=== PATIENT | female | born 1940 | race Caucasian/White ===

== ENCOUNTER → 2016-09-07 | Outpatient (CLI) | payer MEDICARE, OTHER ==
[~2016-09-07] MED LIST: AMIO200T10; ASP81CT PO; B12 IM; CALC-18 PO; DIGO250T96; DILT180C PO; FURO40TA4 PO; LORA0.5T PO; MIRALAX; MTP100TCR PO; MTP25TSR; OCCUVITE PO; OMG1KC PO; PANT40SU PO; POTA10TA36 PO; PRV20T PO; PRX10T PO; VIT D PO; VIT1TABL57 PO; VIT1TABL93 PO; WARF2.5T10 PO; WARF4TAB; WRF2.5T; WRF2.5T PO; WRF5T; WRF5T PO
--- NOTE | 2016-09-07 17:41 | Diagnostic Imaging Report ---
Bilateral screening mammogram. The current study was also evaluated with a Computer Aided Detection (CAD) system. INDICATION: Screening. No current complaints stated on the questionnaire. COMPARISON: 07/20/15. FINDINGS: The breasts are composed of scattered fibroglandular densities. There are benign-appearing calcifications seen. Allowing for technique and positional differences, no suspicious change is seen. IMPRESSION: No significant change. ACR BI-RADS Category 2: Benign findings. Result letter will be mailed to the patient. Note: At least 10% of breast cancer is not imaged by mammography. Dictated by: Dictated on workstation # [id number]
== END ==
LOC: RAD 13:01
PROVIDERS: ATTEND Nurse Practitioner Family
DX: Z12.31 Encounter for screening mammogram for malignant neoplasm of breast (principal)
CPT/HCPCS: 77067

== ENCOUNTER → 2016-10-09 | Outpatient (CLI) | payer MEDICARE, OTHER ==
--- NOTE | 2016-10-09 13:51 | Diagnostic Imaging Report ---
PROCEDURE: CT head without contrast. TECHNIQUE: Multiple contiguous axial images were obtained through the brain without the use of intravenous contrast. INDICATION: Headache. FINDINGS: There is no intracranial hemorrhage, edema or mass effect. There is mild periventricular and deep white hypodensities compatible with chronic microvascular ischemic changes. No hydrocephalus. No extra-axial fluid collection seen. The calvarium, the paranasal sinuses and orbits appear grossly unremarkable. IMPRESSION: No acute process. Dictated by: Dictated on workstation # [id number]
== END ==
LOC: RAD 13:15
PROVIDERS: ATTEND Family Medicine
DX: R51 Headache (principal)
CPT/HCPCS: 70450

== ENCOUNTER → 2018-03-11 | Outpatient (CLI) | payer MEDICARE, OTHER | LOC: CARD 09:34 | PROVIDERS: ATTEND Internal Medicine Cardiovascular Disease | DX: I10 Essential (primary) hypertension (principal); I48.0 Paroxysmal atrial fibrillation; E78.5 Hyperlipidemia, unspecified; R00.2 Palpitations; I08.3 Combined rheumatic disorders of mitral, aortic and tricuspid valves | CPT/HCPCS: 93306 ==

== ENCOUNTER 2018-04-04 08:38 | Outpatient (CLI) | payer MEDICARE, OTHER ==
[~2018-04-04] VITALS: Ht 160 cm; Wt 63.5 kg
[~2018-04-04 08:38] MED LIST changes: +APIX5TAB PO; +CALC600T12 PO; +CYAN250010 PO; +DILT180T9 PO; +METO-370 PO; +PRAV20TA3 PO
== END 2018-04-04 08:48 | disposition home or self-care (01) ==
LOC: PREOP 08:38
PROVIDERS: ATTEND Surgery
DX: Z01.818 Encounter for other preprocedural examination (principal)

== ENCOUNTER 2018-04-08 07:49 | Day surgery (SDC) | payer MEDICARE, OTHER ==
[~2018-04-08] VITALS: Ht 160 cm; Wt 63.5 kg
--- OUTSIDE RECORDS SUMMARY | 2018-04-08 07:55 | XMS REPORT | CCD ---
Author Author Destiny Tobias Organization Destiny Tobias MD, [facility] Address [address] [place] [address] Phone Care Team Providers Care Driver Starting Gate Name Role Phone PP Unavailable CCM Unavailable Summary Purpose Interface Exchange Insurance Providers Payer name Policy type / Coverage type Covered republican ID Effective Begin Date Effective End Date WPS Medicare Part B Medicare Part B [id number] 2018 Unknown [employer] [place] Medicare Part B 006 - [id number] Unknown Family history Father Diagnosis Age At Onset Stroke Unknown Heart Attack Unknown Colon cancer Unknown Mother Diagnosis Age At Onset Hypertension Unknown Stroke Unknown Social History Social History Element Codes Description Effective Dates Marital status Unknown 11/27/2014 Marital status Unknown [place] 11/27/2014 Number of children Unknown 0 11/27/2014 Employment Unknown Retired 11/27/[address]: 521515858 Never smoker 11/27/[address]: 879703879 Never drinks alcohol 11/27/2014 Allergies, Adverse Reactions, Alerts Substance Reaction Codes Entered Date Inactivated Date Status * NO KNOWN FOOD ALLERGIES Unknown 11/27/2014 No Inactive Date Active * NO KNOWN DRUG ALLERGIES Unknown 05/27/2015 No Inactive Date Active Past Medical History Illness Codes Condition Status Onset Date Resolved Date Chronic atrial fibrillation ICD-9: 427.31 ICD-10: I48.2 Active 11/26/2014 Unknown Essential (primary) hypertension ICD-9: 401.1 ICD-10: I10 Active 10/05/2016 Unknown Low back pain ICD-9: 724.2 ICD-10: M54.5 Active 02/04/2018 Unknown Mixed hyperlipidemia ICD-9: 272.2 ICD-10: E78.2 Active 10/05/2016 Unknown Zoster without complications ICD-9: 053.9 ICD-10: B02.9 Active 09/20/2017 Unknown Mixed hyperlipidemia ICD-9: 272.4 ICD-10: E78.2 Active 11/26/2014 Unknown Gastro-esophageal reflux disease without esophagitis ICD-9: 530.81 ICD-10: K21.9 Active 02/06/2017 Unknown Headache ICD-9: 784.0 ICD-10: R51 Active 10/05/2016 Unknown Other allergic rhinitis ICD-9: 477.8 ICD-10: J30.89 Active 10/05/2016 Unknown Essential (primary) hypertension ICD-9: 401.9 ICD-10: I10 Active 11/26/2014 Unknown Hyperlipidemia Unknown Active 11/27/2014 Unknown Hypertension Unknown Active 11/27/2014 Unknown ATRIAL FIBRILLATION ICD-9: 427.31 Active 11/26/2014 Unknown ESSENTIAL HYPERTENSION ICD-9: 401.9 Active 11/26/2014 Unknown HYPERLIPIDEMIA ICD-9: 272.4 Active 11/26/2014 Unknown Problems Condition Codes Effective Dates Condition Status Chronic atrial fibrillation ICD-9: 427.31 ICD-10: I48.2 11/26/2014 Active Essential (primary) hypertension ICD-9: 401.1 ICD-10: I10 10/05/2016 Active Low back pain ICD-9: 724.2 ICD-10: M54.5 02/04/2018 Active Mixed hyperlipidemia ICD-9: 272.2 ICD-10: E78.2 10/05/2016 Active Zoster without complications ICD-9: 053.9 ICD-10: B02.9 09/20/2017 Active Mixed hyperlipidemia ICD-9: 272.4 ICD-10: E78.2 11/26/2014 Active Gastro-esophageal reflux disease without esophagitis ICD-9: 530.81 ICD-10: K21.9 02/06/2017 Active Headache ICD-9: 784.0 ICD-10: R51 10/05/2016 Active Other allergic rhinitis ICD-9: 477.8 ICD-10: J30.89 10/05/2016 Active Essential (primary) hypertension ICD-9: 401.9 ICD-10: I10 11/26/2014 Active Hyperlipidemia Unknown 11/27/2014 Active Hypertension Unknown 11/27/2014 Active ATRIAL FIBRILLATION ICD-9: 427.31 11/26/2014 Active ESSENTIAL HYPERTENSION ICD-9: 401.9 11/26/2014 Active HYPERLIPIDEMIA ICD-9: 272.4 11/26/2014 Active Medications Medication Codes Instructions Start Date Stop Date Status Fill Instructions acyclovir 400 mg tablet RxNorm: 033404 2 Tablet(s) PO QID 09/2009/29/2017 Inactive pravastatin 20 mg tablet RxNorm: 219740 Tablet(s) TAKE 1 TABLET EVERY DAY 09/14/2017 12/07/2018 Active famotidine 20 mg tablet RxNorm: 172493 1 Tablet(s) PO BID 06/1906/13/2018 Active diltiazem CD 180 mg capsule,extended release 24 hr RxNorm: 398015 Capsule(s) TAKE 1 CAPSULE EVERY DAY 06/19/2017 06/13/2018 Active metoprolol tartrate 50 mg tablet RxNorm: 334869 1 Tablet(s) PO BID 06/19/2017 09/11/2018 Active omeprazole 20 mg capsule,delayed release RxNorm: 915142 1 Capsule(s) PO daily as needed acid reflux not controlled by pepcid 02/06/2017 05/01/2018 Active Eliquis 5 mg tablet RxNorm: 1043756 1 Tablet(s) PO BID 201603/07/2017 Inactive pravastatin 20 mg tablet RxNorm: 539684 TAKE 1 TABLET EVERY DAY 11/30/2016 09/13/2017 Inactive diltiazem CD 180 mg capsule,extended release 24 hr RxNorm: 922498 TAKE 1 CAPSULE EVERY DAY 10/30/2016 06/18/2017 Inactive Kenalog 40 mg/mL suspension for injection RxNorm: 9317593 1 Milliliter(s) Inj 10/05/2016 10/05/2016 Inactive metoprolol tartrate 50 mg tablet RxNorm: 862405 1 Tablet(s) PO BID 10/05/2016 06/18/2017 Inactive metoprolol tartrate 100 mg tablet RxNorm: 107162 1 Tablet(s) PO daily 02/25/2016 10/04/2016 Inactive warfarin 5 mg tablet RxNorm: 854185 1 Tablet(s) PO daily 201507/12/2016 Inactive pravastatin 20 mg tablet RxNorm: 455058 1 Tablet(s) PO daily 11/29/2016 Inactive diltiazem CD 180 mg capsule,extended release 24 hr RxNorm: 769353 1 Capsule(s) PO daily 12/08/2015 10/29/2016 Inactive metronidazole 0.75 % topical cream RxNorm: 199034 apply topically at bedtime to clean skin TOP 12/22/2014 12/21/2014 Inactive metronidazole 0.75 % topical cream RxNorm: 126621 apply topically at bedtime to clean skin TOP 12/22/2014 03/21/2015 Inactive metoprolol tartrate 100 mg tablet RxNorm: 430591 1 Tablet(s) PO daily 11/27/2014 11/21/2015 Inactive warfarin 5 mg tablet RxNorm: 434372 1 Tablet(s) PO daily 201411/21/2015 Inactive diltiazem CD 180 mg capsule,extended release 24 hr RxNorm: 291027 1 Capsule(s) PO daily 11/27/2014 11/21/2015 Inactive aspirin 81 mg tablet RxNorm: 610329 1 Tablet(s) PO daily No Start Date Active Oystercal-D oral RxNorm: 042627 oral No Start Date Active Fish Oil 1,000 mg capsule RxNorm: 1 Capsule(s) PO daily No Start Date Active Vitamin D3 2,000 unit capsule RxNorm: 830076 1 Capsule(s) PO daily No Start Date Active B-12 DOTS oral RxNorm : 28183 oral No Start Date Active Eliquis 5 mg tablet RxNorm: 4365744 1 Tablet(s) PO BID No Start Date Active diltiazem CD 180 mg capsule,extended release 24 hr RxNorm: 176473 1 Capsule(s) PO daily No Start Date 11/26/2014 Inactive warfarin 5 mg tablet RxNorm: 589748 1 1/2 Tablet(s) PO daily No Start Date 11/26/2014 Inactive warfarin 5 mg tablet RxNorm: 440887 1 Tablet(s) PO daily No Start Date 11/26/2014 Inactive pravastatin 20 mg tablet RxNorm: 337600 1 Tablet(s) PO daily No Start Date 12/13/2015 Inactive famotidine 20 mg tablet RxNorm: 846657 1 Tablet(s) PO BID No Start Date 06/18/2017 Inactive metoprolol tartrate 100 mg tablet RxNorm: 151505 1 Tablet(s) PO daily No Start Date 11/26/2014 Inactive Medication Administered Medication Codes Instructions Start Date Status Kenalog 40 mg/mL suspension for injection RxNorm: 9976126 1Milliliter 10/05/2016 No longer Active Immunizations Vaccine Codes Date Status Influenza CVX: 141 04/06/2017 completed Influenza CVX: 141 04/25/2016 completed Influenza CVX: 141 06/18/2014 completed Zoster CVX: 121 03/18/2014 completed Pneumococcal CVX: 33 03/18/2008 completed Assessments Condition Codes Effective Dates Mixed hyperlipidemia ICD-10: E78.2 ICD-9: 272.2 02/04/2018 Low back pain ICD-10: M54.5 ICD-9: 724.2 02/04/2018 Essential (primary) hypertension ICD-10: I10 ICD-9: 401.1 02/04/2018 Chronic atrial fibrillation ICD-10: I48.2 ICD-9: 427.31 02/04/2018 Zoster without complications ICD-10: B02.9 ICD-9: 053.9 09/20/2017 Mixed hyperlipidemia ICD-10: E78.2 ICD-9: 272.4 08/13/2017 Gastro-esophageal reflux disease without esophagitis ICD-10 : K21.9 ICD-9: 530.81 02/06/2017 Headache ICD-10: R51 ICD-9: 784.0 10/17/2016 Other allergic rhinitis ICD-10: J30.89 ICD-9: 477.8 10/05/2016 Essential (primary) hypertension ICD-10: I10 ICD-9: 401.9 06/01/2016 ESSENTIAL HYPERTENSION ICD-9: 401.9 11/27 HYPERLIPIDEMIA ICD-9: 272.4 11/27/2014 ATRIAL FIBRILLATION ICD-9: 427.31 2014 Reason For Visit Reason For Visit Effective Dates Notes hypertension 02/04/2018 rash 09/20/2017 hypertension 08/13/2017 hypertension 02/06/2017 headache 10/17/2016 headache 10/05/2016 hypertension 06/01/2016 hypertension 12/02/2015 hypertension 05/27/2015 hypertension 11/27/2014 Results Observation Observation Code Item Item Code Result Date Lipid Ord30 CHOL 178 mg/dL 08/10/2017 Lipid Ord30 HDL 56.0 mg/dl 08/10/2017 Lipid Ord30 TRIG 138 mg/dL 08/10/2017 Lipid Ord30 LDL 94 mg/dL 08/10/2017 Lipid Ord30 C/HDL 3.2 Ratio 08/10/2017 Bili D Ord93 BILI D 0.1 mg/dL 08/10/2017 Bili D Ord93 BILI I 0.3 mg/dL 08/10/2017 Comp Metabolic Zax170 NA 142 mEq/L 08/10/2017 Comp Metabolic Pjv818 K 4.1 mEq/L 08/10/2017 Comp Metabolic Rrm467 CL 105 mEq/L 08/10/2017 Comp Metabolic Wdf614 CO2 29.0 mEq/L 08/10/2017 Comp Metabolic Lkp641 ANION GAP 12 08/10/2017 Comp Metabolic Lwb413 GLUCOSE 100 mg/dL 08/10/2017 Comp Metabolic Wpu596 Creat 1.0 mg/dL 08/10/2017 Comp Metabolic Kie367 eGFR 55 ml/min/1.73m2 08/10/2017 Comp Metabolic Mbf702 BUN 17 mg/dL 08/10/2017 Comp Metabolic Ukb605 B/C Ratio 16.5 Ratio 08/10/2017 Comp Metabolic Npn120 CALCIUM 10.0 mg/dL 08/10/2017 Comp Metabolic Gsg452 ALK PHOS 75 U/L 08/10/2017 Comp Metabolic Siu501 AST(SGOT) 20 U/L 08/10/2017 Comp Metabolic Fzc775 ALT(SGPT) 19 U/L 08/10/2017 Comp Metabolic Vnl153 BILI T 0.4 mg/dL 08/10/2017 Comp Metabolic Ruq290 ALBUMIN 4.3 g/dL 08/10/2017 Comp Metabolic Hrv911 TPRO 6.7 g/dL 08/10/2017 Comp Metabolic Jai783 GLOB 2.4 g/dL 08/10/2017 Comp Metabolic Bsf409 A/G Ratio 1.8 Ratio 08/10/2017 Comp Metabolic Jpk269 Osmo 285 mOsmo 08/10/2017 Cbc With Differential Ord2 WBC 6.58 K/ul 08/10/2017 Cbc With Differential Ord2 RBC 4.84 M/ul 08/10/2017 Cbc With Differential Ord2 HGB 14.5 g/dl 08/10/2017 Cbc With Differential Ord2 Neut% 42.5 % 08/10/2017 Cbc With Differential Ord2 HCT 42.4 % 08/10/2017 Cbc With Differential Ord2 MCV 87.6 fl 08/10/2017 Cbc With Differential Ord2 Lymph% 45.3 % 08/10/2017 Cbc With Differential Ord2 MCH 30.0 pg 08/10/2017 Cbc With Differential Ord2 [place]% 9.3 % 08/10/2017 Cbc With Differential Ord2 Eos% 2.4 % 08/10/2017 Cbc With Differential Ord2 MCHC 34.2 pg 08/10/2017 Cbc With Differential Ord2 PLT 222 K/ul 08/10/2017 Cbc With Differential Ord2 Baso% 0.5 % 08/10/2017 Cbc With Differential Ord2 RDW 13.4 % 08/10/2017 Cbc With Differential Ord2 Neut ABS# 2.80 K/ul 08/10/2017 Cbc With Differential Ord2 Lymph ABS# 2.98 K/ul 08/10/2017 Cbc With Differential Ord2 [place] ABS# 0.6 K/ul 08/10/2017 Cbc With Differential Ord2 Eos ABS# 0.2 K/ul 08/10/2017 Cbc With Differential Ord2 Baso ABS# 0.0 K/ul 08/10/2017 Comp Metabolic Awx777 NA 142 mEq/L 12/26/2016 Comp Metabolic Lzq349 K 4.3 mEq/L 12/26/2016 Comp Metabolic Nvv188 CL 106 mEq/L 12/26/2016 Comp Metabolic Tvh733 CO2 29.0 mEq/L 12/26/2016 Comp Metabolic Vsb334 ANION GAP 11 12/26/2016 Comp Metabolic Mhi206 GLUCOSE 95 mg/dL 12/26/2016 Comp Metabolic Red954 Creat 1.0 mg/dL 12/26/2016 Comp Metabolic Pdv743 eGFR 58 ml/min/1.73m2 12/26/2016 Comp Metabolic Qnf918 BUN 18 mg/dL 12/26/2016 Comp Metabolic Bys593 B/C Ratio 18.4 Ratio 12/26/2016 Comp Metabolic Zfn820 CALCIUM 9.4 mg/dL 12/26/2016 Comp Metabolic Mjr038 ALK PHOS 60 U/L 12/26/2016 Comp Metabolic Oel543 AST(SGOT) 22 U/L 12/26/2016 Comp Metabolic Maf859 ALT(SGPT) 24 U/L 12/26/2016 Comp Metabolic Bow606 BILI T 0.4 mg/dL 12/26/2016 Comp Metabolic Xls909 ALBUMIN 4.0 g/dL 12/26/2016 Comp Metabolic Osl386 TPRO 6.1 g/dL 12/26/2016 Comp Metabolic Nsr694 GLOB 2.1 g/dL 12/26/2016 Comp Metabolic Eax804 A/G Ratio 1.9 Ratio 12/26/2016 Comp Metabolic Fna386 Osmo 285 mOsmo 12/26/2016 Lipid Ord30 CHOL 187 mg/dL 12/26/2016 Lipid Ord30 HDL 66.0 mg/dl 12/26/2016 Lipid Ord30 TRIG 88 mg/dL 12/26/2016 Lipid Ord30 LDL 103 mg/dL 12/26/2016 Lipid Ord30 C/HDL 2.8 Ratio 12/26/2016 Cbc With Differential Ord2 WBC 6.29 K/ul 12/26/2016 Cbc With Differential Ord2 RBC 4.56 M/ul 12/26/2016 Cbc With Differential Ord2 HGB 14.0 g/dl 12/26/2016 Cbc With Differential Ord2 Neut% 50.6 % 12/26/2016 Cbc With Differential Ord2 HCT 40.2 % 12/26/2016 Cbc With Differential Ord2 MCV 88.2 fl 12/26/2016 Cbc With Differential Ord2 Lymph% 38.6 % 12/26/2016 Cbc With Differential Ord2 MCH 30.7 pg 12/26/2016 Cbc With Differential Ord2 [place]% 8.6 % 12/26/2016 Cbc With Differential Ord2 MCHC 34.8 pg 12/26/2016 Cbc With Differential Ord2 Eos% 1.9 % 12/26/2016 Cbc With Differential Ord2 Baso% 0.3 % 12/26/2016 Cbc With Differential Ord2 PLT 237 K/ul 12/26/2016 Cbc With Differential Ord2 RDW 13.8 % 12/26/2016 Cbc With Differential Ord2 Neut ABS# 3.18 K/ul 12/26/2016 Cbc With Differential Ord2 Lymph ABS# 2.43 K/ul 12/26/2016 Cbc With Differential Ord2 [place] ABS# 0.5 K/ul 12/26/2016 Cbc With Differential Ord2 Eos ABS# 0.1 K/ul 12/26/2016 Cbc With Differential Ord2 Baso ABS# 0.0 K/ul 12/26/2016 Tsh Ord6 hTSH II 1.18 uIU/mL 12/26/2016 Pt Bgr7985 PT 22.1 seconds 06/27/2016 Pt Rsi2529 INR 2.0 06/27/2016 Pt Ool9137 Low Intensity - 1.5-2.0 06/27/2016 Pt Gou2362 Mod intensity - 2.0-3.0 06/27/2016 Pt Ung2152 Hi intensity - 3.0-4.0 06/27/2016 Cbc With Differential Ord2 WBC 6.09 K/ul 06/27/2016 Cbc With Differential Ord2 RBC 4.51 M/ul 06/27/2016 Cbc With Differential Ord2 HGB 13.7 g/dl 06/27/2016 Cbc With Differential Ord2 Neut% 51.9 % 06/27/2016 Cbc With Differential Ord2 HCT 39.4 % 06/27/2016 Cbc With Differential Ord2 MCV 87.4 fl 06/27/2016 Cbc With Differential Ord2 Lymph% 36.0 % 06/27/2016 Cbc With Differential Ord2 MCH 30.4 pg 06/27/2016 Cbc With Differential Ord2 [place]% 8.4 % 06/27/2016 Cbc With Differential Ord2 MCHC 34.8 pg 06/27/2016 Cbc With Differential Ord2 Eos% 3.4 % 06/27/2016 Cbc With Differential Ord2 PLT 221 K/ul 06/27/2016 Cbc With Differential Ord2 Baso% 0.3 % 06/27/2016 Cbc With Differential Ord2 RDW 13.3 % 06/27/2016 Cbc With Differential Ord2 Neut ABS# 3.16 K/ul 06/27/2016 Cbc With Differential Ord2 Lymph ABS# 2.19 K/ul 06/27/2016 Cbc With Differential Ord2 [place] ABS# 0.5 K/ul 06/27/2016 Cbc With Differential Ord2 Eos ABS# 0.2 K/ul 06/27/2016 Cbc With Differential Ord2 Baso ABS# 0.0 K/ul 06/27/2016 Comp Metabolic Glg627 NA 137 mEq/L 06/27/2016 Comp Metabolic Kht918 K 4.4 mEq/L 06/27/2016 Comp Metabolic Ned419 CL 105 mEq/L 06/27/2016 Comp Metabolic Jzf455 CO2 27.0 mEq/L 06/27/2016 Comp Metabolic Fng738 ANION GAP 9 06/27/2016 Comp Metabolic Abv833 GLUCOSE 92 mg/dL 06/27/2016 Comp Metabolic Ydd464 Creat 0.9 mg/dL 06/27/2016 Comp Metabolic Yuh566 eGFR 61 ml/min/1.73m2 06/27/2016 Comp Metabolic Vuk404 BUN 20 mg/dL 06/27/2016 Comp Metabolic Rlh649 B/C Ratio 21.3 Ratio 06/27/2016 Comp Metabolic Nth920 CALCIUM 9.5 mg/dL 06/27/2016 Comp Metabolic Jbh167 ALK PHOS 72 U/L 06/27/2016 Comp Metabolic Nno405 AST(SGOT) 20 U/L 06/27/2016 Comp Metabolic Mzn923 ALT(SGPT) 18 U/L 06/27/2016 Comp Metabolic Xhl658 BILI T 0.4 mg/dL 06/27/2016 Comp Metabolic Hqu499 ALBUMIN 4.1 g/dL 06/27/2016 Comp Metabolic Lws718 TPRO 6.5 g/dL 06/27/2016 Comp Metabolic Xfb699 GLOB 2.4 g/dL 06/27/2016 Comp Metabolic Kyk608 A/G Ratio 1.7 Ratio 06/27/2016 Comp Metabolic Yly643 Osmo 276 mOsmo 06/27/2016 Lipid Ord30 CHOL 179 mg/dL 06/27/2016 Lipid Ord30 HDL 54.0 mg/dl 06/27/2016 Lipid Ord30 TRIG 118 mg/dL 06/27/2016 Lipid Ord30 LDL 101 mg/dL 06/27/2016 Lipid Ord30 C/HDL 3.3 Ratio 06/27/2016 Tsh Ord6 hTSH II 1.15 uIU/mL 06/27/2016 Pt Lnd4655 PT 25.2 seconds 05/22/2016 Pt Vnj3560 INR 2.4 05/22/2016 Pt Bpr4327 Low Intensity - 1.5-2.0 05/22/2016 Pt Mre3166 Mod intensity - 2.0-3.0 05/22/2016 Pt Fyt7926 Hi intensity - 3.0-4.0 05/22/2016 Pt Fyc8451 PT 26.8 seconds 04/24/2016 Pt Jyo6563 INR 2.6 04/24/2016 Pt Xfw8781 Low Intensity - 1.5-2.0 04/24/2016 Pt Tls9581 Mod intensity - 2.0-3.0 04/24/2016 Pt Wnm4077 Hi intensity - 3.0-4.0 04/24/2016 Pt Yrj5575 PT 24.6 seconds 03/27/2016 Pt Zun0281 INR 2.4 03/27/2016 Pt Aje6453 Low Intensity - 1.5-2.0 03/27/2016 Pt Bbc2137 Mod intensity - 2.0-3.0 03/27/2016 Pt Uvu8845 Hi intensity - 3.0-4.0 03/27/2016 Pt Xyd1358 PT 23.6 seconds 02/28/2016 Pt Xwa4154 INR 2.2 02/28/2016 Pt Nfm1747 Low Intensity - 1.5-2.0 02/28/2016 Pt Wjl2368 Mod intensity - 2.0-3.0 02/28/2016 Pt Mds1191 Hi intensity - 3.0-4.0 02/28/2016 Pt Nyq6521 PT 27.3 seconds 01/31/2016 Pt Icm2314 INR 2.7 01/31/2016 Pt Ggm2063 Low Intensity - 1.5-2.0 01/31/2016 Pt Lel9257 Mod intensity - 2.0-3.0 01/31/2016 Pt Fhg7748 Hi intensity - 3.0-4.0 01/31/2016 Lipid Ord30 CHOL 166 mg/dL 01/03/2016 Lipid Ord30 HDL 47.0 mg/dl 01/03/2016 Lipid Ord30 TRIG 120 mg/dL 01/03/2016 Lipid Ord30 LDL 95 mg/dL 01/03/2016 Lipid Ord30 C/HDL 3.5 Ratio 01/03/2016 Tsh Ord6 hTSH II 0.93 uIU/mL 01/03/2016 Comp Metabolic Hhx408 NA 139 mEq/L 01/03/2016 Comp Metabolic Piq390 K 4.1 mEq/L 01/03/2016 Comp Metabolic Lgp862 CL 107 mEq/L 01/03/2016 Comp Metabolic Mxg631 CO2 26.0 mEq/L 01/03/2016 Comp Metabolic Axt899 ANION GAP 10 01/03/2016 Comp Metabolic Vln828 GLUCOSE 94 mg/dL 01/03/2016 Comp Metabolic Chw908 Creat 0.9 mg/dL 01/03/2016 Comp Metabolic Awi704 eGFR 63 ml/min/1.73m2 01/03/2016 Comp Metabolic Rnv449 BUN 18 mg/dL 01/03/2016 Comp Metabolic Ttr712 B/C Ratio 19.6 Ratio 01/03/2016 Comp Metabolic Snz688 CALCIUM 8.6 mg/dL 01/03/2016 Comp Metabolic Mvh659 ALK PHOS 66 U/L 01/03/2016 Comp Metabolic Rfn189 AST(SGOT) 21 U/L 01/03/2016 Comp Metabolic Bas094 ALT(SGPT) 19 U/L 01/03/2016 Comp Metabolic Dxw286 BILI T 0.4 mg/dL 01/03/2016 Comp Metabolic Gha470 ALBUMIN 4.0 g/dL 01/03/2016 Comp Metabolic Pff008 TPRO 6.3 g/dL 01/03/2016 Comp Metabolic Dzq232 GLOB 2.3 g/dL 01/03/2016 Comp Metabolic Ebb323 A/G Ratio 1.7 Ratio 01/03/2016 Comp Metabolic Pvn067 Osmo 279 mOsmo 01/03/2016 Cbc With Differential Ord2 WBC 5.97 K/ul 01/03/2016 Cbc With Differential Ord2 RBC 4.52 M/ul 01/03/2016 Cbc With Differential Ord2 HGB 13.7 g/dl 01/03/2016 Cbc With Differential Ord2 HCT 39.5 % 01/03/2016 Cbc With Differential Ord2 Neut% 39.4 % 01/03/2016 Cbc With Differential Ord2 Lymph% 46.2 % 01/03/2016 Cbc With Differential Ord2 MCV 87.4 fl 01/03/2016 Cbc With Differential Ord2 MCH 30.3 pg 01/03/2016 Cbc With Differential Ord2 [place]% 9.7 % 01/03/2016 Cbc With Differential Ord2 Eos% 4.4 % 01/03/2016 Cbc With Differential Ord2 MCHC 34.7 pg 01/03/2016 Cbc With Differential Ord2 Baso% 0.3 % 01/03/2016 Cbc With Differential Ord2 PLT 214 K/ul 01/03/2016 Cbc With Differential Ord2 RDW 13.4 % 01/03/2016 Cbc With Differential Ord2 Neut ABS# 2.35 K/ul 01/03/2016 Cbc With Differential Ord2 Lymph ABS# 2.76 K/ul 01/03/2016 Cbc With Differential Ord2 [place] ABS# 0.6 K/ul 01/03/2016 Cbc With Differential Ord2 Eos ABS# 0.3 K/ul 01/03/2016 Cbc With Differential Ord2 Baso ABS# 0.0 K/ul 01/03/2016 Pt Nvj8062 PT 24.3 seconds 01/03/2016 Pt Vqk6102 INR 2.3 01/03/2016 Pt Jgq6080 Low Intensity - 1.5-2.0 01/03/2016 Pt Ohu9943 Mod intensity - 2.0-3.0 01/03/2016 Pt Wvn6121 Hi intensity - 3.0-4.0 01/03/2016 Pt Jqv0811 PT 22.0 seconds 12/09/2015 Pt Htt9382 INR 2.1 12/09/2015 Pt Dmj8922 Low Intensity - 1.5-2.0 12/09/2015 Pt Czr2984 Mod intensity - 2.0-3.0 12/09/2015 Pt Ptd5242 Hi intensity - 3.0-4.0 12/09/2015 Pt Szf1322 PT 22.2 seconds 11/11/2015 Pt Zmn2589 INR 2.1 11/11/2015 Pt Xid6438 Low Intensity - 1.5-2.0 11/11/2015 Pt Qyu1849 Mod intensity - 2.0-3.0 11/11/2015 Pt Lho5349 Hi intensity - 3.0-4.0 11/11/2015 Pt Pss6152 PT 20.7 seconds 11/04/2015 Pt Tja2038 INR 1.9 11/04/2015 Pt Pbh4616 Low Intensity - 1.5-2.0 11/04/2015 Pt Dus2723 Mod intensity - 2.0-3.0 11/04/2015 Pt Irc8189 Hi intensity - 3.0-4.0 11/04/2015 Pt Zqz2374 PT 24.6 seconds 10/07/2015 Pt Zlu8380 INR 2.4 10/07/2015 Pt Vvp5939 Low Intensity - 1.5-2.0 10/07/2015 Pt Ynw3934 Mod intensity - 2.0-3.0 10/07/2015 Pt Epl7672 Hi intensity - 3.0-4.0 10/07/2015 Pt Cpc2586 PT 21.2 seconds 09/22/2015 Pt Vvy0744 INR 1.9 09/22/2015 Pt Hli0338 Low Intensity - 1.5-2.0 09/22/2015 Pt Tuc8135 Mod intensity - 2.0-3.0 09/22/2015 Pt Uul2625 Hi intensity - 3.0-4.0 09/22/2015 Pt Hcm6350 PT 20.7 seconds 09/15/2015 Pt Iyy3433 INR 1.8 09/15/2015 Pt Cno3711 Low Intensity - 1.5-2.0 09/15/2015 Pt Rkw7545 Mod intensity - 2.0-3.0 09/15/2015 Pt Oef0197 Hi intensity - 3.0-4.0 09/15/2015 Pt Rsn2625 PT 17.2 seconds 09/08/2015 Pt Rrm2835 INR 1.5 09/08/2015 Pt Rfp9782 Low Intensity - 1.5-2.0 09/08/2015 Pt Iie8209 Mod intensity - 2.0-3.0 09/08/2015 Pt Nrp9682 Hi intensity - 3.0-4.0 09/08/2015 Pt Ovi0742 PT 22.4 seconds 08/10/2015 Pt Vep2113 INR 2.0 08/10/2015 Pt Zyx7465 Low Intensity - 1.5-2.0 08/10/2015 Pt Nbd3002 Mod intensity - 2.0-3.0 08/10/2015 Pt Zjp6939 Hi intensity - 3.0-4.0 08/10/2015 Pt Pbc9924 PT 22.4 seconds 07/13/2015 Pt Cel7698 INR 2.0 07/13/2015 Pt Nfv7657 Low Intensity - 1.5-2.0 07/13/2015 Pt Yoz3501 Mod intensity - 2.0-3.0 07/13/2015 Pt Bpz6764 Hi intensity - 3.0-4.0 07/13/2015 Cbc With Differential Ord2 WBC 6.90 K/ul 07/05/2015 Cbc With Differential Ord2 RBC 4.63 M/ul 07/05/2015 Cbc With Differential Ord2 HGB 13.6 g/dl 07/05/2015 Cbc With Differential Ord2 HCT 40.3 % 07/05/2015 Cbc With Differential Ord2 Neut% 48.2 % 07/05/2015 Cbc With Differential Ord2 Lymph% 39.4 % 07/05/2015 Cbc With Differential Ord2 MCV 87.0 fl 07/05/2015 Cbc With Differential Ord2 [place]% 8.7 % 07/05/2015 Cbc With Differential Ord2 MCH 29.4 pg 07/05/2015 Cbc With Differential Ord2 MCHC 33.7 pg 07/05/2015 Cbc With Differential Ord2 Eos% 3.6 % 07/05/2015 Cbc With Differential Ord2 Baso% 0.1 % 07/05/2015 Cbc With Differential Ord2 PLT 204 K/ul 07/05/2015 Cbc With Differential Ord2 RDW 13.4 % 07/05/2015 Cbc With Differential Ord2 Neut ABS# 3.32 K/ul 07/05/2015 Cbc With Differential Ord2 Lymph ABS# 2.72 K/ul 07/05/2015 Cbc With Differential Ord2 [place] ABS# 0.6 K/ul 07/05/2015 Cbc With Differential Ord2 Eos ABS# 0.3 K/ul 07/05/2015 Cbc With Differential Ord2 Baso ABS# 0.0 K/ul 07/05/2015 Cbc With Differential Ord2 New Analyzer Notice Please note new ref ranges starting 06-30-2015 due to implemntation of new five part differential hematolgy analyzer. 07/05/2015 Tsh Ord6 hTSH II 1.18 uIU/mL 07/05/2015 Pt Rsy0494 PT 18.6 seconds 07/05/2015 Pt Spk3346 INR 1.6 07/05/2015 Pt Xiu1179 Low Intensity - 1.5-2.0 07/05/2015 Pt Ide7739 Mod intensity - 2.0-3.0 07/05/2015 Pt Wek5034 Hi intensity - 3.0-4.0 07/05/2015 Lipid Ord30 CHOL 173 mg/dL 07/05/2015 Lipid Ord30 HDL 53.0 mg/dl 07/05/2015 Lipid Ord30 TRIG 156 mg/dL 07/05/2015 Lipid Ord30 LDL 89 mg/dL 07/05/2015 Lipid Ord30 C/HDL 3.3 Ratio 07/05/2015 Comp Metabolic Out157 NA 139 mEq/L 07/05/2015 Comp Metabolic Vle397 K 4.4 mEq/L 07/05/2015 Comp Metabolic Mzg438 CL 105 mEq/L 07/05/2015 Comp Metabolic Pqc084 CO2 27.0 mEq/L 07/05/2015 Comp Metabolic Wse872 ANION GAP 11 07/05/2015 Comp Metabolic Fvb247 GLUCOSE 91 mg/dL 07/05/2015 Comp Metabolic Dzg703 Creat 1.0 mg/dL 07/05/2015 Comp Metabolic Rdb830 eGFR 61 ml/min/1.73m2 07/05/2015 Comp Metabolic Rnq908 BUN 19 mg/dL 07/05/2015 Comp Metabolic Tiy286 B/C Ratio 20.0 Ratio 07/05/2015 Comp Metabolic Jbl102 CALCIUM 9.4 mg/dL 07/05/2015 Comp Metabolic Bgo253 ALK PHOS 70 U/L 07/05/2015 Comp Metabolic Lzm223 AST(SGOT) 21 U/L 07/05/2015 Comp Metabolic Tho366 ALT(SGPT) 18 U/L 07/05/2015 Comp Metabolic Pmg814 BILI T 0.4 mg/dL 07/05/2015 Comp Metabolic Mml607 ALBUMIN 4.1 g/dL 07/05/2015 Comp Metabolic Zdm199 TPRO 6.5 g/dL 07/05/2015 Comp Metabolic Eul385 GLOB 2.4 g/dL 07/05/2015 Comp Metabolic Rfj743 A/G Ratio 1.7 Ratio 07/05/2015 Comp Metabolic Bgn198 Osmo 279 mOsmo 07/05/2015 Pt Ues0894 PT 24.7 seconds 06/04/2015 Pt Pbz0562 INR 2.3 06/04/2015 Pt Eyu9129 Low Intensity - 1.5-2.0 06/04/2015 Pt Bfx5240 Mod intensity - 2.0-3.0 06/04/2015 Pt Pub1995 Hi intensity - 3.0-4.0 06/04/2015 Pt Opw4654 PT 23.6 seconds 05/07/2015 Pt Jrc9990 INR 2.2 05/07/2015 Pt Cyz0705 Low Intensity - 1.5-2.0 05/07/2015 Pt Egw5376 Mod intensity - 2.0-3.0 05/07/2015 Pt Qqb6253 Hi intensity - 3.0-4.0 05/07/2015 Pt Dmu7164 PT 23.6 seconds 04/09/2015 Pt Icg1302 INR 2.2 04/09/2015 Pt Kzh1539 Low Intensity - 1.5-2.0 04/09/2015 Pt Zjv2325 Mod intensity - 2.0-3.0 04/09/2015 Pt Gqu3614 Hi intensity - 3.0-4.0 04/09/2015 Pt Kyp5416 PT 23.7 seconds 03/11/2015 Pt Uvi0027 INR 2.2 03/11/2015 Pt Gwq4116 Low Intensity - 1.5-2.0 03/11/2015 Pt Rel9827 Mod intensity - 2.0-3.0 03/11/2015 Pt Duh4896 Hi intensity - 3.0-4.0 03/11/2015 Pt Xlc6503 PT 24.8 seconds 01/28/2015 Pt Fsh4834 INR 2.3 01/28/2015 Pt Kls7097 Low Intensity - 1.5-2.0 01/28/2015 Pt Yvw1366 Mod intensity - 2.0-3.0 01/28/2015 Pt Zan8976 Hi intensity - 3.0-4.0 01/28/2015 Review of Systems System Result Effective Dates Constitutional No recent illness 2017 Constitutional No chills 02/04/2018 Constitutional fatigue 02/04/2018 Constitutional No fever 02/04/2018 Constitutional No insomnia 02/04/2018 Constitutional No malaise 02/04/2018 Eyes No blindness 02/04/2018 Eyes No vision change 02/04/2018 Ears/Nose/Throat/Neck No dental pain Ears/Nose/Throat/Neck No dizziness 2017 Ears/Nose/Throat/Neck No dysphagia 2017 Ears/Nose/Throat/Neck No headache 2017 Ears/Nose/Throat/Neck No hearing loss Ears/Nose/Throat/Neck No nasal allergies 02/04/2018 Ears/Nose/Throat/Neck No sore throat Ears/Nose/Throat/Neck No postnasal drip 02/04/2018 Ears/Nose/Throat/Neck No sinus congestion 02/04/2018 Cardiovascular No chest pain/pressure Cardiovascular No dyspnea 02/04/2018 Cardiovascular No edema 02/04/2018 Cardiovascular No exercise intolerance Cardiovascular fatigue 02/04/2018 Cardiovascular hypertension 02/04/2018 Cardiovascular No near-syncope/dizziness 02/04/2018 Respiratory No chest tightness 2017 Respiratory No cough 02/04/2018 Respiratory No dyspnea 02/04/2018 Respiratory No pedal edema 02/04/2018 Gastrointestinal No abdominal pain 2017 Gastrointestinal No constipation 2017 Gastrointestinal No diarrhea 02/04/2018 Gastrointestinal No gastroesophageal reflux 02/04/2018 Gastrointestinal No nausea 02/04/2018 Gastrointestinal No vomiting 02/04/2018 Genitourinary/Nephrology No dysuria 02/04 Genitourinary/Nephrology No nocturia Genitourinary/Nephrology No urinary incontinence 02/04/2018 Musculoskeletal No stiffness 02/04/2018 Musculoskeletal No swelling 02/04/2018 Musculoskeletal No muscle weakness 2017 Musculoskeletal No myalgias 02/04/2018 Dermatologic No rash 02/04/2018 Dermatologic No sores 02/04/2018 Dermatologic No scar 02/04/2018 Neurologic No dizziness 02/04/2018 Neurologic No headache 02/04/2018 Neurologic No neck pain 02/04/2018 Neurologic No syncope 02/04/2018 Psychiatric No anxiety 02/04/2018 Psychiatric No depression 02/04/2018 Constitutional No recent illness 2017 Constitutional No anorexia 09/20/2017 Constitutional No chills 09/20/2017 Constitutional No night sweats 2017 Constitutional No diaphoresis 09/20/2017 Constitutional No fatigue 09/20/2017 Constitutional No fever 09/20/2017 Constitutional No insomnia 09/20/2017 Constitutional No malaise 09/20/2017 Constitutional No weight loss 09/20/2017 Constitutional No weight gain 09/20/2017 Dermatologic rash 09/20/2017 Constitutional No recent illness 2017 Constitutional No chills 08/13/2017 Constitutional fatigue 08/13/2017 Constitutional No fever 08/13/2017 Constitutional No insomnia 08/13/2017 Constitutional No malaise 08/13/2017 Eyes No blindness 08/13/2017 Eyes No vision change 08/13/2017 Ears/Nose/Throat/Neck No dental pain Ears/Nose/Throat/Neck No dizziness 2017 Ears/Nose/Throat/Neck No dysphagia 2017 Ears/Nose/Throat/Neck No headache 2017 Ears/Nose/Throat/Neck No hearing loss Ears/Nose/Throat/Neck No nasal allergies 08/13/2017 Ears/Nose/Throat/Neck No sore throat Ears/Nose/Throat/Neck No postnasal drip 08/13/2017 Ears/Nose/Throat/Neck No sinus congestion 08/13/2017 Cardiovascular No chest pain/pressure Cardiovascular No dyspnea 08/13/2017 Cardiovascular No edema 08/13/2017 Cardiovascular No exercise intolerance Cardiovascular fatigue 08/13/2017 Cardiovascular hypertension 08/13/2017 Cardiovascular No near-syncope/dizziness 08/13/2017 Respiratory No chest tightness 2017 Respiratory No cough 08/13/2017 Respiratory No dyspnea 08/13/2017 Respiratory No pedal edema 08/13/2017 Gastrointestinal No abdominal pain 2017 Gastrointestinal No constipation 2017 Gastrointestinal No diarrhea 08/13/2017 Gastrointestinal No gastroesophageal reflux 08/13/2017 Gastrointestinal No nausea 08/13/2017 Gastrointestinal No vomiting 08/13/2017 Genitourinary/Nephrology No dysuria 08/13 Genitourinary/Nephrology No nocturia Genitourinary/Nephrology No urinary incontinence 08/13/2017 Musculoskeletal No stiffness 08/13/2017 Musculoskeletal No swelling 08/13/2017 Musculoskeletal No muscle weakness 2017 Musculoskeletal No myalgias 08/13/2017 Dermatologic No rash 08/13/2017 Dermatologic No sores 08/13/2017 Dermatologic No scar 08/13/2017 Neurologic No dizziness 08/13/2017 Neurologic No headache 08/13/2017 Neurologic No neck pain 08/13/2017 Neurologic No syncope 08/13/2017 Psychiatric No anxiety 08/13/2017 Psychiatric No depression 08/13/2017 Constitutional No recent illness 2016 Constitutional No chills 02/06/2017 Constitutional fatigue 02/06/2017 Constitutional No fever 02/06/2017 Constitutional No insomnia 02/06/2017 Constitutional No malaise 02/06/2017 Eyes No blindness 02/06/2017 Eyes No vision change 02/06/2017 Ears/Nose/Throat/Neck No dental pain Ears/Nose/Throat/Neck No dizziness 2016 Ears/Nose/Throat/Neck No dysphagia 2016 Ears/Nose/Throat/Neck No headache 2016 Ears/Nose/Throat/Neck No hearing loss Ears/Nose/Throat/Neck No nasal allergies 02/06/2017 Ears/Nose/Throat/Neck No sore throat Ears/Nose/Throat/Neck No postnasal drip 02/06/2017 Ears/Nose/Throat/Neck No sinus congestion 02/06/2017 Cardiovascular No chest pain/pressure Cardiovascular No dyspnea 02/06/2017 Cardiovascular No edema 02/06/2017 Cardiovascular No exercise intolerance Cardiovascular fatigue 02/06/2017 Cardiovascular hypertension 02/06/2017 Cardiovascular No near-syncope/dizziness 02/06/2017 Respiratory No chest tightness 2016 Respiratory No cough 02/06/2017 Respiratory No dyspnea 02/06/2017 Respiratory No pedal edema 02/06/2017 Gastrointestinal No abdominal pain 2016 Gastrointestinal No constipation 2016 Gastrointestinal No diarrhea 02/06/2017 Gastrointestinal No gastroesophageal reflux 02/06/2017 Gastrointestinal No nausea 02/06/2017 Gastrointestinal No vomiting 02/06/2017 Genitourinary/Nephrology No dysuria 02/06 Genitourinary/Nephrology No nocturia Genitourinary/Nephrology No urinary incontinence 02/06/2017 Musculoskeletal No stiffness 02/06/2017 Musculoskeletal No swelling 02/06/2017 Musculoskeletal No muscle weakness 2016 Musculoskeletal No myalgias 02/06/2017 Dermatologic No rash 02/06/2017 Dermatologic No sores 02/06/2017 Dermatologic No scar 02/06/2017 Neurologic No dizziness 02/06/2017 Neurologic No headache 02/06/2017 Neurologic No neck pain 02/06/2017 Neurologic No syncope 02/06/2017 Psychiatric No anxiety 02/06/2017 Psychiatric No depression 02/06/2017 Constitutional No recent illness 2016 Constitutional No chills 10/17/2016 Constitutional No fatigue 10/17/2016 Constitutional No fever 10/17/2016 Constitutional No insomnia 10/17/2016 Constitutional No malaise 10/17/2016 Eyes No blindness 10/17/2016 Eyes No vision change 10/17/2016 Ears/Nose/Throat/Neck No dental pain 07/2016 Ears/Nose/Throat/Neck No dizziness 2016 Ears/Nose/Throat/Neck No dysphagia 2016 Ears/Nose/Throat/Neck No headache 2016 Ears/Nose/Throat/Neck No hearing loss 07/2016 Ears/Nose/Throat/Neck No nasal allergies 10/17/2016 Ears/Nose/Throat/Neck No sore throat 07/2016 Ears/Nose/Throat/Neck No postnasal drip 10/17/2016 Ears/Nose/Throat/Neck No sinus congestion 10/17/2016 Cardiovascular No chest pain/pressure 07/2016 Cardiovascular No dyspnea 10/17/2016 Cardiovascular No edema 10/17/2016 Cardiovascular No exercise intolerance Cardiovascular No fatigue 10/17/2016 Cardiovascular No near-syncope/dizziness 10/17/2016 Respiratory No chest tightness 2016 Respiratory No cough 10/17/2016 Respiratory No dyspnea 10/17/2016 Respiratory No pedal edema 10/17/2016 Gastrointestinal No abdominal pain 2016 Gastrointestinal No constipation 2016 Gastrointestinal No diarrhea 10/17/2016 Gastrointestinal No gastroesophageal reflux 10/17/2016 Gastrointestinal No nausea 10/17/2016 Gastrointestinal No vomiting 10/17/2016 Genitourinary/Nephrology No dysuria 10/17 Genitourinary/Nephrology No nocturia 07/2016 Genitourinary/Nephrology No urinary incontinence 10/17/2016 Musculoskeletal No stiffness 10/17/2016 Musculoskeletal No swelling 10/17/2016 Musculoskeletal No muscle weakness 2016 Musculoskeletal No myalgias 10/17/2016 Dermatologic No rash 10/17/2016 Dermatologic No sores 10/17/2016 Dermatologic No scar 10/17/2016 Neurologic No dizziness 10/17/2016 Neurologic headache 10/17/2016 Neurologic No neck pain 10/17/2016 Neurologic No syncope 10/17/2016 Psychiatric No anxiety 10/17/2016 Psychiatric No depression 10/17/2016 Cardiovascular hypertension 10/17/2016 Constitutional No recent illness 2016 Constitutional No chills 10/05/2016 Constitutional No fatigue 10/05/2016 Constitutional No fever 10/05/2016 Constitutional No insomnia 10/05/2016 Constitutional No malaise 10/05/2016 Eyes No blindness 10/05/2016 Eyes No vision change 10/05/2016 Ears/Nose/Throat/Neck No dental pain Ears/Nose/Throat/Neck No dizziness 2016 Ears/Nose/Throat/Neck No dysphagia 2016 Ears/Nose/Throat/Neck No headache 2016 Ears/Nose/Throat/Neck No hearing loss Ears/Nose/Throat/Neck No nasal allergies 10/05/2016 Ears/Nose/Throat/Neck No sore throat Ears/Nose/Throat/Neck No postnasal drip 10/05/2016 Ears/Nose/Throat/Neck No sinus congestion 10/05/2016 Cardiovascular No chest pain/pressure Cardiovascular No dyspnea 10/05/2016 Cardiovascular No edema 10/05/2016 Cardiovascular No exercise intolerance Cardiovascular fatigue 10/05/2016 Cardiovascular No near-syncope/dizziness 10/05/2016 Respiratory No chest tightness 2016 Respiratory No cough 10/05/2016 Respiratory No dyspnea 10/05/2016 Respiratory No pedal edema 10/05/2016 Gastrointestinal No abdominal pain 2016 Gastrointestinal No constipation 2016 Gastrointestinal No diarrhea 10/05/2016 Gastrointestinal No gastroesophageal reflux 10/05/2016 Gastrointestinal No nausea 10/05/2016 Gastrointestinal No vomiting 10/05/2016 Genitourinary/Nephrology No dysuria 10/05 Genitourinary/Nephrology No nocturia Genitourinary/Nephrology No urinary incontinence 10/05/2016 Musculoskeletal No stiffness 10/05/2016 Musculoskeletal No swelling 10/05/2016 Musculoskeletal No muscle weakness 2016 Musculoskeletal No myalgias 10/05/2016 Dermatologic No rash 10/05/2016 Dermatologic No sores 10/05/2016 Dermatologic No scar 10/05/2016 Neurologic No dizziness 10/05/2016 Neurologic headache 10/05/2016 Neurologic No neck pain 10/05/2016 Neurologic No syncope 10/05/2016 Psychiatric No anxiety 10/05/2016 Psychiatric No depression 10/05/2016 Cardiovascular hypertension 10/05/2016 Constitutional No recent illness 2015 Constitutional No chills 06/01/2016 Constitutional No fatigue 06/01/2016 Constitutional No fever 06/01/2016 Constitutional No insomnia 06/01/2016 Constitutional No malaise 06/01/2016 Eyes No blindness 06/01/2016 Eyes No vision change 06/01/2016 Ears/Nose/Throat/Neck No dental pain Ears/Nose/Throat/Neck No dizziness 2015 Ears/Nose/Throat/Neck No dysphagia 2015 Ears/Nose/Throat/Neck No headache 2015 Ears/Nose/Throat/Neck No hearing loss Ears/Nose/Throat/Neck No nasal allergies 06/01/2016 Ears/Nose/Throat/Neck No sore throat Ears/Nose/Throat/Neck No postnasal drip 06/01/2016 Ears/Nose/Throat/Neck No sinus congestion 06/01/2016 Cardiovascular No chest pain/pressure Cardiovascular No dyspnea 06/01/2016 Cardiovascular No edema 06/01/2016 Cardiovascular No exercise intolerance Cardiovascular No fatigue 06/01/2016 Cardiovascular No near-syncope/dizziness 06/01/2016 Respiratory No chest tightness 2015 Respiratory No cough 06/01/2016 Respiratory No dyspnea 06/01/2016 Respiratory No pedal edema 06/01/2016 Gastrointestinal No abdominal pain 2015 Gastrointestinal No constipation 2015 Gastrointestinal No diarrhea 06/01/2016 Gastrointestinal No gastroesophageal reflux 06/01/2016 Gastrointestinal No nausea 06/01/2016 Gastrointestinal No vomiting 06/01/2016 Genitourinary/Nephrology No dysuria 06/01 Genitourinary/Nephrology No nocturia Genitourinary/Nephrology No urinary incontinence 06/01/2016 Musculoskeletal No stiffness 06/01/2016 Musculoskeletal No swelling 06/01/2016 Musculoskeletal No muscle weakness 2015 Musculoskeletal No myalgias 06/01/2016 Dermatologic No rash 06/01/2016 Dermatologic No sores 06/01/2016 Dermatologic No scar 06/01/2016 Neurologic No dizziness 06/01/2016 Neurologic No headache 06/01/2016 Neurologic No neck pain 06/01/2016 Neurologic No syncope 06/01/2016 Psychiatric No anxiety 06/01/2016 Psychiatric No depression 06/01/2016 Constitutional No recent illness 2015 Constitutional No chills 12/02/2015 Constitutional No fatigue 12/02/2015 Constitutional No fever 12/02/2015 Constitutional No insomnia 12/02/2015 Constitutional No malaise 12/02/2015 Eyes No blindness 12/02/2015 Eyes No vision change 12/02/2015 Ears/Nose/Throat/Neck No dental pain Ears/Nose/Throat/Neck No dizziness 2015 Ears/Nose/Throat/Neck No dysphagia 2015 Ears/Nose/Throat/Neck No headache 2015 Ears/Nose/Throat/Neck No hearing loss Ears/Nose/Throat/Neck No nasal allergies 12/02/2015 Ears/Nose/Throat/Neck No sore throat Ears/Nose/Throat/Neck No postnasal drip 12/02/2015 Ears/Nose/Throat/Neck No sinus congestion 12/02/2015 Cardiovascular No chest pain/pressure Cardiovascular No dyspnea 12/02/2015 Cardiovascular No edema 12/02/2015 Cardiovascular No exercise intolerance Cardiovascular No fatigue 12/02/2015 Cardiovascular No near-syncope/dizziness 12/02/2015 Respiratory No chest tightness 2015 Respiratory No cough 12/02/2015 Respiratory No dyspnea 12/02/2015 Respiratory No pedal edema 12/02/2015 Gastrointestinal No abdominal pain 2015 Gastrointestinal No constipation 2015 Gastrointestinal No diarrhea 12/02/2015 Gastrointestinal No gastroesophageal reflux 12/02/2015 Gastrointestinal No nausea 12/02/2015 Gastrointestinal No vomiting 12/02/2015 Genitourinary/Nephrology No dysuria 12/01 Genitourinary/Nephrology No nocturia Genitourinary/Nephrology No urinary incontinence 12/02/2015 Musculoskeletal No stiffness 12/02/2015 Musculoskeletal No swelling 12/02/2015 Musculoskeletal No muscle weakness 2015 Musculoskeletal No myalgias 12/02/2015 Dermatologic No rash 12/02/2015 Dermatologic No sores 12/02/2015 Dermatologic No scar 12/02/2015 Neurologic No dizziness 12/02/2015 Neurologic No headache 12/02/2015 Neurologic No neck pain 12/02/2015 Neurologic No syncope 12/02/2015 Psychiatric No anxiety 12/02/2015 Psychiatric No depression 12/02/2015 Constitutional No recent illness 2014 Constitutional No chills 05/27/2015 Constitutional No fatigue 05/27/2015 Constitutional No fever 05/27/2015 Constitutional No insomnia 05/27/2015 Constitutional No malaise 05/27/2015 Eyes No blindness 05/27/2015 Eyes No vision change 05/27/2015 Ears/Nose/Throat/Neck No dental pain 03/2015 Ears/Nose/Throat/Neck No dizziness 2014 Ears/Nose/Throat/Neck No dysphagia 2014 Ears/Nose/Throat/Neck No headache 2014 Ears/Nose/Throat/Neck No hearing loss 03/2015 Ears/Nose/Throat/Neck No nasal allergies 05/27/2015 Ears/Nose/Throat/Neck No sore throat 03/2015 Ears/Nose/Throat/Neck No postnasal drip 05/27/2015 Ears/Nose/Throat/Neck No sinus congestion 05/27/2015 Cardiovascular No chest pain/pressure 03/2015 Cardiovascular No dyspnea 05/27/2015 Cardiovascular No edema 05/27/2015 Cardiovascular No exercise intolerance Cardiovascular No fatigue 05/27/2015 Cardiovascular No near-syncope/dizziness 05/27/2015 Respiratory No chest tightness 2014 Respiratory No cough 05/27/2015 Respiratory No dyspnea 05/27/2015 Respiratory No pedal edema 05/27/2015 Gastrointestinal No abdominal pain 2014 Gastrointestinal No constipation 2014 Gastrointestinal No diarrhea 05/27/2015 Gastrointestinal No gastroesophageal reflux 05/27/2015 Gastrointestinal No nausea 05/27/2015 Gastrointestinal No vomiting 05/27/2015 Genitourinary/Nephrology No dysuria 05/27 Genitourinary/Nephrology No nocturia 03/2015 Genitourinary/Nephrology No urinary incontinence 05/27/2015 Musculoskeletal No stiffness 05/27/2015 Musculoskeletal No swelling 05/27/2015 Musculoskeletal No muscle weakness 2014 Musculoskeletal No myalgias 05/27/2015 Dermatologic No rash 05/27/2015 Dermatologic No sores 05/27/2015 Dermatologic No scar 05/27/2015 Neurologic No dizziness 05/27/2015 Neurologic No headache 05/27/2015 Neurologic No neck pain 05/27/2015 Neurologic No syncope 05/27/2015 Psychiatric No anxiety 05/27/2015 Psychiatric No depression 05/27/2015 Constitutional No recent illness 2014 Constitutional No chills 11/27/2014 Constitutional No fatigue 11/27/2014 Constitutional No fever 11/27/2014 Constitutional No insomnia 11/27/2014 Constitutional No malaise 11/27/2014 Eyes No blindness 11/27/2014 Eyes No vision change 11/27/2014 Ears/Nose/Throat/Neck No dental pain 05/2015 Ears/Nose/Throat/Neck No dizziness 2014 Ears/Nose/Throat/Neck No dysphagia 2014 Ears/Nose/Throat/Neck No headache 2014 Ears/Nose/Throat/Neck No hearing loss 05/2015 Ears/Nose/Throat/Neck No nasal allergies 11/27/2014 Ears/Nose/Throat/Neck No sore throat 05/2015 Ears/Nose/Throat/Neck No postnasal drip 11/27/2014 Ears/Nose/Throat/Neck No sinus congestion 11/27/2014 Cardiovascular No chest pain/pressure 05/2015 Cardiovascular No dyspnea 11/27/2014 Cardiovascular No edema 11/27/2014 Cardiovascular No exercise intolerance Cardiovascular No fatigue 11/27/2014 Cardiovascular No near-syncope/dizziness 11/27/2014 Respiratory No chest tightness 2014 Respiratory No cough 11/27/2014 Respiratory No dyspnea 11/27/2014 Respiratory No pedal edema 11/27/2014 Gastrointestinal No abdominal pain 2014 Gastrointestinal No constipation 2014 Gastrointestinal No diarrhea 11/27/2014 Gastrointestinal No gastroesophageal reflux 11/27/2014 Gastrointestinal No nausea 11/27/2014 Gastrointestinal No vomiting 11/27/2014 Genitourinary/Nephrology No dysuria 11/27 Genitourinary/Nephrology No nocturia 05/2015 Genitourinary/Nephrology No urinary incontinence 11/27/2014 Musculoskeletal No stiffness 11/27/2014 Musculoskeletal No swelling 11/27/2014 Musculoskeletal No muscle weakness 2014 Musculoskeletal No myalgias 11/27/2014 Dermatologic No rash 11/27/2014 Dermatologic No sores 11/27/2014 Dermatologic No scar 11/27/2014 Neurologic No dizziness 11/27/2014 Neurologic No headache 11/27/2014 Neurologic No neck pain 11/27/2014 Neurologic No syncope 11/27/2014 Psychiatric No anxiety 11/27/2014 Psychiatric No depression 11/27/2014 Physical Exam Exam Name System Name Item Name Status Result Effective Dates Notes Full Exam - General 1994 Constitutional general appearance Development: well developed 02/04/2018 None Full Exam - General 1994 Constitutional general appearance Development: appears stated age 0802/04/2018 None Full Exam - General 1994 Constitutional general appearance Hygiene/Attention to Grooming: good hygiene 02/04/2018 None Full Exam - General 1994 Eyes conjunctiva /eyelids Overall: conjunctiva clear 02/04/2018 None Full Exam - General 1994 Eyes conjunctiva /eyelids Overall: cornea clear 02/04/2018 None Full Exam - General 1994 Eyes conjunctiva /eyelids Overall: eyelids normal 02/04/2018 None Full Exam - General 1994 Eyes pupils and irises Overall: pupils equal, round, reactive to light and accomodation 02/04/2018 None Full Exam - General 1994 Ears/Nose/Throat otoscopic exam Overall: external auditory canals clear 02/04/2018 None Full Exam - General 1994 Ears/Nose/Throat otoscopic exam Overall: tympanic membranes clear 02/04/2018 None Full Exam - General 1994 Ears/Nose/Throat lips/teeth/gingiva Overall: benign lips 02/04/2018 None Full Exam - General 1994 Ears/Nose/Throat lips/teeth/gingiva Overall: normal dentition 02/04/2018 None Full Exam - General 1994 Ears/Nose/Throat oral cavity/pharynx/larynx Overall: oral mucosa clear 02/04/2018 None Full Exam - General 1994 Ears/Nose/Throat oral cavity/pharynx/larynx Overall: oropharyngeal mucosa clear 02/04/2018 None Full Exam - General 1994 Ears/Nose/Throat oral cavity/pharynx/larynx Overall: hypopharynx benign 02/04/2018 None Full Exam - General 1994 Ears/Nose/Throat oral cavity/pharynx/larynx Overall: no masses 02/04/2018 None Full Exam - General 1994 Respiratory auscultation Overall: breath sounds clear bilaterally 02/04/2018 None Full Exam - General 1994 Respiratory respiratory effort/rhythm Overall: no retractions 02/04/2018 None Full Exam - General 1994 Respiratory respiratory effort/rhythm Overall: normal rate 02/04/2018 None Full Exam - General 1994 Cardiovascular extremities Overall: no clubbing 02/04/2018 None Full Exam - General 1994 Cardiovascular auscultation of heart Rate: regular rate 02/04/2018 None Full Exam - General 1994 Cardiovascular auscultation of heart Rhythm: irregularly irregular rhythm 02/04/2018 None Full Exam - General 1994 Abdomen abdominal exam Overall: no tenderness 02/04/2018 None Full Exam - General 1994 Abdomen abdominal exam Overall: normal bowel sounds 02/04/2018 None Full Exam - General 1994 Lymphatic neck nodes Overall: anterior cervical chain benign 02/04/2018 None Full Exam - General 1994 Lymphatic neck nodes Overall: posterior cervical chain benign 02/04/2018 None Full Exam - General 1994 Musculoskeletal spine, ribs and pelvis Overall: spine benign 02/04/2018 None Full Exam - General 1994 Musculoskeletal spine, ribs and pelvis Overall: sacroiliac joint benign 02/04/2018 None Full Exam - General 1994 Musculoskeletal spine, ribs and pelvis Overall: good posture 02/04/2018 None Full Exam - General 1994 Musculoskeletal head and neck Overall: head atraumatic 02/04/2018 None Full Exam - General 1994 Musculoskeletal head and neck Overall: cervical spine benign 02/04/2018 None Full Exam - General 1994 Neurologic deep tendon reflexes Overall: deep tendon reflexes intact 02/04/2018 None Full Exam - General 1994 Neurologic cranial nerves Overall: crainial nerves 2 - 12 grossly intact 02/04/2018 None Full Exam - General 1994 Psychiatric orientation/consciousness Overall: oriented to person, place and time 02/04/2018 None Full Exam - General 1994 Psychiatric mood and affect Overall: normal mood and affect 02/04/2018 None Full Exam - Dermatology Constitutional general appearance Overall: well nourished 09/20/2017 None Full Exam - Dermatology Constitutional general appearance Overall: well developed 09/20/2017 None Full Exam - Dermatology Constitutional general appearance Overall: in no acute distress 09/20/2017 None Full Exam - Dermatology Constitutional general appearance Overall: of normal body habitus 09/20/2017 None Full Exam - Dermatology Constitutional general appearance Overall: well groomed 09/20/2017 None Full Exam - Dermatology Psychiatric orientation Overall: oriented to person, place and time 09/20/2017 None Full Exam - Dermatology Integument insp & palp - chest/axillae Lesion: papule 09/20/2017 None Full Exam - Dermatology Integument insp & palp - chest/axillae Lesion: vesicle 09/20/2017 None Full Exam - Dermatology Integument insp & palp - chest/axillae Location: on the left chest 09/20/2017 None Full Exam - Dermatology Integument insp & palp - chest/axillae Location: on the left breast 09/20/2017 None Full Exam - Dermatology Integument insp & palp - chest/axillae Location: on the left axilla 09/20/2017 None Full Exam - Dermatology Integument insp & palp - chest/axillae Color: erythematous 09/20/2017 None Full Exam - General 1994 Constitutional general appearance Development: well developed 08/13/2017 None Full Exam - General 1994 Constitutional general appearance Development: appears stated age 0208/13/2017 None Full Exam - General 1994 Constitutional general appearance Hygiene/Attention to Grooming: good hygiene 08/13/2017 None Full Exam - General 1994 Eyes conjunctiva /eyelids Overall: conjunctiva clear 08/13/2017 None Full Exam - General 1994 Eyes conjunctiva /eyelids Overall: cornea clear 08/13/2017 None Full Exam - General 1994 Eyes conjunctiva /eyelids Overall: eyelids normal 08/13/2017 None Full Exam - General 1994 Eyes pupils and irises Overall: pupils equal, round, reactive to light and accomodation 08/13/2017 None Full Exam - General 1994 Ears/Nose/Throat otoscopic exam Overall: external auditory canals clear 08/13/2017 None Full Exam - General 1994 Ears/Nose/Throat otoscopic exam Overall: tympanic membranes clear 08/13/2017 None Full Exam - General 1994 Ears/Nose/Throat lips/teeth/gingiva Overall: benign lips 08/13/2017 None Full Exam - General 1994 Ears/Nose/Throat lips/teeth/gingiva Overall: normal dentition 08/13/2017 None Full Exam - General 1994 Ears/Nose/Throat oral cavity/pharynx/larynx Overall: oral mucosa clear 08/13/2017 None Full Exam - General 1994 Ears/Nose/Throat oral cavity/pharynx/larynx Overall: oropharyngeal mucosa clear 08/13/2017 None Full Exam - General 1994 Ears/Nose/Throat oral cavity/pharynx/larynx Overall: hypopharynx benign 08/13/2017 None Full Exam - General 1994 Ears/Nose/Throat oral cavity/pharynx/larynx Overall: no masses 08/13/2017 None Full Exam - General 1994 Respiratory auscultation Overall: breath sounds clear bilaterally 08/13/2017 None Full Exam - General 1994 Respiratory respiratory effort/rhythm Overall: no retractions 08/13/2017 None Full Exam - General 1994 Respiratory respiratory effort/rhythm Overall: normal rate 08/13/2017 None Full Exam - General 1994 Cardiovascular extremities Overall: no clubbing 08/13/2017 None Full Exam - General 1994 Cardiovascular auscultation of heart Rate: regular rate 08/13/2017 None Full Exam - General 1994 Cardiovascular auscultation of heart Rhythm: irregularly irregular rhythm 08/13/2017 None Full Exam - General 1994 Abdomen abdominal exam Overall: no tenderness 08/13/2017 None Full Exam - General 1994 Abdomen abdominal exam Overall: normal bowel sounds 08/13/2017 None Full Exam - General 1994 Lymphatic neck nodes Overall: anterior cervical chain benign 08/13/2017 None Full Exam - General 1994 Lymphatic neck nodes Overall: posterior cervical chain benign 08/13/2017 None Full Exam - General 1994 Musculoskeletal spine, ribs and pelvis Overall: spine benign 08/13/2017 None Full Exam - General 1994 Musculoskeletal spine, ribs and pelvis Overall: sacroiliac joint benign 08/13/2017 None Full Exam - General 1994 Musculoskeletal spine, ribs and pelvis Overall: good posture 08/13/2017 None Full Exam - General 1994 Musculoskeletal head and neck Overall: head atraumatic 08/13/2017 None Full Exam - General 1994 Musculoskeletal head and neck Overall: cervical spine benign 08/13/2017 None Full Exam - General 1994 Neurologic deep tendon reflexes Overall: deep tendon reflexes intact 08/13/2017 None Full Exam - General 1994 Neurologic cranial nerves Overall: crainial nerves 2 - 12 grossly intact 08/13/2017 None Full Exam - General 1994 Psychiatric orientation/consciousness Overall: oriented to person, place and time 08/13/2017 None Full Exam - General 1994 Psychiatric mood and affect Overall: normal mood and affect 08/13/2017 None Full Exam - General 1994 Constitutional general appearance Development: well developed 02/06/2017 None Full Exam - General 1994 Constitutional general appearance Development: appears stated age 0802/06/2017 None Full Exam - General 1994 Constitutional general appearance Hygiene/Attention to Grooming: good hygiene 02/06/2017 None Full Exam - General 1994 Eyes conjunctiva /eyelids Overall: conjunctiva clear 02/06/2017 None Full Exam - General 1994 Eyes conjunctiva /eyelids Overall: cornea clear 02/06/2017 None Full Exam - General 1994 Eyes conjunctiva /eyelids Overall: eyelids normal 02/06/2017 None Full Exam - General 1994 Eyes pupils and irises Overall: pupils equal, round, reactive to light and accomodation 02/06/2017 None Full Exam - General 1994 Ears/Nose/Throat otoscopic exam Overall: external auditory canals clear 02/06/2017 None Full Exam - General 1994 Ears/Nose/Throat otoscopic exam Overall: tympanic membranes clear 02/06/2017 None Full Exam - General 1994 Ears/Nose/Throat lips/teeth/gingiva Overall: benign lips 02/06/2017 None Full Exam - General 1994 Ears/Nose/Throat lips/teeth/gingiva Overall: normal dentition 02/06/2017 None Full Exam - General 1994 Ears/Nose/Throat oral cavity/pharynx/larynx Overall: oral mucosa clear 02/06/2017 None Full Exam - General 1994 Ears/Nose/Throat oral cavity/pharynx/larynx Overall: oropharyngeal mucosa clear 02/06/2017 None Full Exam - General 1994 Ears/Nose/Throat oral cavity/pharynx/larynx Overall: hypopharynx benign 02/06/2017 None Full Exam - General 1994 Ears/Nose/Throat oral cavity/pharynx/larynx Overall: no masses 02/06/2017 None Full Exam - General 1994 Respiratory auscultation Overall: breath sounds clear bilaterally 02/06/2017 None Full Exam - General 1994 Respiratory respiratory effort/rhythm Overall: no retractions 02/06/2017 None Full Exam - General 1994 Respiratory respiratory effort/rhythm Overall: normal rate 02/06/2017 None Full Exam - General 1994 Cardiovascular extremities Overall: no clubbing 02/06/2017 None Full Exam - General 1994 Cardiovascular auscultation of heart Rate: regular rate 02/06/2017 None Full Exam - General 1994 Cardiovascular auscultation of heart Rhythm: irregularly irregular rhythm 02/06/2017 None Full Exam - General 1994 Abdomen abdominal exam Overall: no tenderness 02/06/2017 None Full Exam - General 1994 Abdomen abdominal exam Overall: normal bowel sounds 02/06/2017 None Full Exam - General 1994 Lymphatic neck nodes Overall: anterior cervical chain benign 02/06/2017 None Full Exam - General 1994 Lymphatic neck nodes Overall: posterior cervical chain benign 02/06/2017 None Full Exam - General 1994 Musculoskeletal spine, ribs and pelvis Overall: spine benign 02/06/2017 None Full Exam - General 1994 Musculoskeletal spine, ribs and pelvis Overall: sacroiliac joint benign 02/06/2017 None Full Exam - General 1994 Musculoskeletal spine, ribs and pelvis Overall: good posture 02/06/2017 None Full Exam - General 1994 Musculoskeletal head and neck Overall: head atraumatic 02/06/2017 None Full Exam - General 1994 Musculoskeletal head and neck Overall: cervical spine benign 02/06/2017 None Full Exam - General 1994 Neurologic deep tendon reflexes Overall: deep tendon reflexes intact 02/06/2017 None Full Exam - General 1994 Neurologic cranial nerves Overall: crainial nerves 2 - 12 grossly intact 02/06/2017 None Full Exam - General 1994 Psychiatric orientation/consciousness Overall: oriented to person, place and time 02/06/2017 None Full Exam - General 1994 Psychiatric mood and affect Overall: normal mood and affect 02/06/2017 None Full Exam - General 1994 Constitutional general appearance Development: well developed 10/17/2016 None Full Exam - General 1994 Constitutional general appearance Development: appears stated age 0510/17/2016 None Full Exam - General 1994 Constitutional general appearance Hygiene/Attention to Grooming: good hygiene 10/17/2016 None Full Exam - General 1994 Eyes conjunctiva /eyelids Overall: conjunctiva clear 10/17/2016 None Full Exam - General 1994 Eyes conjunctiva /eyelids Overall: cornea clear 10/17/2016 None Full Exam - General 1994 Eyes conjunctiva /eyelids Overall: eyelids normal 10/17/2016 None Full Exam - General 1994 Eyes pupils and irises Overall: pupils equal, round, reactive to light and accomodation 10/17/2016 None Full Exam - General 1994 Ears/Nose/Throat otoscopic exam Overall: external auditory canals clear 10/17/2016 None Full Exam - General 1994 Ears/Nose/Throat otoscopic exam Overall: tympanic membranes clear 10/17/2016 None Full Exam - General 1994 Ears/Nose/Throat lips/teeth/gingiva Overall: benign lips 10/17/2016 None Full Exam - General 1994 Ears/Nose/Throat lips/teeth/gingiva Overall: normal dentition 10/17/2016 None Full Exam - General 1994 Ears/Nose/Throat oral cavity/pharynx/larynx Overall: oral mucosa clear 10/17/2016 None Full Exam - General 1994 Ears/Nose/Throat oral cavity/pharynx/larynx Overall: oropharyngeal mucosa clear 10/17/2016 None Full Exam - General 1994 Ears/Nose/Throat oral cavity/pharynx/larynx Overall: hypopharynx benign 10/17/2016 None Full Exam - General 1994 Ears/Nose/Throat oral cavity/pharynx/larynx Overall: no masses 10/17/2016 None Full Exam - General 1994 Respiratory auscultation Overall: breath sounds clear bilaterally 10/17/2016 None Full Exam - General 1994 Respiratory respiratory effort/rhythm Overall: no retractions 10/17/2016 None Full Exam - General 1994 Respiratory respiratory effort/rhythm Overall: normal rate 10/17/2016 None Full Exam - General 1994 Cardiovascular extremities Overall: no clubbing 10/17/2016 None Full Exam - General 1994 Cardiovascular auscultation of heart Rate: regular rate 10/17/2016 None Full Exam - General 1994 Cardiovascular auscultation of heart Rhythm: irregularly irregular rhythm 10/17/2016 None Full Exam - General 1994 Musculoskeletal spine, ribs and pelvis Overall: good posture 10/17/2016 None Full Exam - General 1994 Musculoskeletal head and neck Overall: head atraumatic 10/17/2016 None Full Exam - General 1994 Musculoskeletal head and neck Overall: cervical spine benign 10/17/2016 None Full Exam - General 1994 Psychiatric orientation/consciousness Overall: oriented to person, place and time 10/17/2016 None Full Exam - General 1994 Psychiatric mood and affect Overall: normal mood and affect 10/17/2016 None Full Exam - General 1994 Constitutional general appearance Development: well developed 10/05/2016 None Full Exam - General 1994 Constitutional general appearance Development: appears stated age 0410/05/2016 None Full Exam - General 1994 Constitutional general appearance Hygiene/Attention to Grooming: good hygiene 10/05/2016 None Full Exam - General 1994 Eyes conjunctiva /eyelids Overall: conjunctiva clear 10/05/2016 None Full Exam - General 1994 Eyes conjunctiva /eyelids Overall: cornea clear 10/05/2016 None Full Exam - General 1994 Eyes conjunctiva /eyelids Overall: eyelids normal 10/05/2016 None Full Exam - General 1994 Eyes pupils and irises Overall: pupils equal, round, reactive to light and accomodation 10/05/2016 None Full Exam - General 1994 Ears/Nose/Throat otoscopic exam Overall: external auditory canals clear 10/05/2016 None Full Exam - General 1994 Ears/Nose/Throat otoscopic exam Overall: tympanic membranes clear 10/05/2016 None Full Exam - General 1994 Ears/Nose/Throat lips/teeth/gingiva Overall: benign lips 10/05/2016 None Full Exam - General 1994 Ears/Nose/Throat lips/teeth/gingiva Overall: normal dentition 10/05/2016 None Full Exam - General 1994 Ears/Nose/Throat oral cavity/pharynx/larynx Overall: oral mucosa clear 10/05/2016 None Full Exam - General 1994 Ears/Nose/Throat oral cavity/pharynx/larynx Overall: oropharyngeal mucosa clear 10/05/2016 None Full Exam - General 1994 Ears/Nose/Throat oral cavity/pharynx/larynx Overall: hypopharynx benign 10/05/2016 None Full Exam - General 1994 Ears/Nose/Throat oral cavity/pharynx/larynx Overall: no masses 10/05/2016 None Full Exam - General 1994 Respiratory auscultation Overall: breath sounds clear bilaterally 10/05/2016 None Full Exam - General 1994 Respiratory respiratory effort/rhythm Overall: no retractions 10/05/2016 None Full Exam - General 1994 Respiratory respiratory effort/rhythm Overall: normal rate 10/05/2016 None Full Exam - General 1994 Cardiovascular extremities Overall: no clubbing 10/05/2016 None Full Exam - General 1994 Cardiovascular auscultation of heart Rate: regular rate 10/05/2016 None Full Exam - General 1994 Cardiovascular auscultation of heart Rhythm: irregularly irregular rhythm 10/05/2016 None Full Exam - General 1994 Abdomen abdominal exam Overall: no tenderness 10/05/2016 None Full Exam - General 1994 Abdomen abdominal exam Overall: normal bowel sounds 10/05/2016 None Full Exam - General 1994 Lymphatic neck nodes Overall: anterior cervical chain benign 10/05/2016 None Full Exam - General 1994 Lymphatic neck nodes Overall: posterior cervical chain benign 10/05/2016 None Full Exam - General 1994 Musculoskeletal spine, ribs and pelvis Overall: spine benign 10/05/2016 None Full Exam - General 1994 Musculoskeletal spine, ribs and pelvis Overall: sacroiliac joint benign 10/05/2016 None Full Exam - General 1994 Musculoskeletal spine, ribs and pelvis Overall: good posture 10/05/2016 None Full Exam - General 1994 Musculoskeletal head and neck Overall: head atraumatic 10/05/2016 None Full Exam - General 1994 Musculoskeletal head and neck Overall: cervical spine benign 10/05/2016 None Full Exam - General 1994 Integument inspection of skin Overall: few scattered moles, no gross abnormalities 10/05/2016 None Full Exam - General 1994 Neurologic deep tendon reflexes Overall: deep tendon reflexes intact 10/05/2016 None Full Exam - General 1994 Neurologic cranial nerves Overall: crainial nerves 2 - 12 grossly intact 10/05/2016 None Full Exam - General 1994 Psychiatric orientation/consciousness Overall: oriented to person, place and time 10/05/2016 None Full Exam - General 1994 Psychiatric mood and affect Overall: normal mood and affect 10/05/2016 None Full Exam - General 1994 Constitutional general appearance Development: well developed 06/01/2016 None Full Exam - General 1994 Constitutional general appearance Development: appears stated age 1206/01/2016 None Full Exam - General 1994 Constitutional general appearance Hygiene/Attention to Grooming: good hygiene 06/01/2016 None Full Exam - General 1994 Eyes conjunctiva /eyelids Overall: conjunctiva clear 06/01/2016 None Full Exam - General 1994 Eyes conjunctiva /eyelids Overall: cornea clear 06/01/2016 None Full Exam - General 1994 Eyes conjunctiva /eyelids Overall: eyelids normal 06/01/2016 None Full Exam - General 1994 Eyes pupils and irises Overall: pupils equal, round, reactive to light and accomodation 06/01/2016 None Full Exam - General 1994 Ears/Nose/Throat otoscopic exam Overall: external auditory canals clear 06/01/2016 None Full Exam - General 1994 Ears/Nose/Throat otoscopic exam Overall: tympanic membranes clear 06/01/2016 None Full Exam - General 1994 Ears/Nose/Throat lips/teeth/gingiva Overall: benign lips 06/01/2016 None Full Exam - General 1994 Ears/Nose/Throat lips/teeth/gingiva Overall: normal dentition 06/01/2016 None Full Exam - General 1994 Ears/Nose/Throat oral cavity/pharynx/larynx Overall: oral mucosa clear 06/01/2016 None Full Exam - General 1994 Ears/Nose/Throat oral cavity/pharynx/larynx Overall: oropharyngeal mucosa clear 06/01/2016 None Full Exam - General 1994 Ears/Nose/Throat oral cavity/pharynx/larynx Overall: hypopharynx benign 06/01/2016 None Full Exam - General 1994 Ears/Nose/Throat oral cavity/pharynx/larynx Overall: no masses 06/01/2016 None Full Exam - General 1994 Respiratory auscultation Overall: breath sounds clear bilaterally 06/01/2016 None Full Exam - General 1994 Respiratory respiratory effort/rhythm Overall: no retractions 06/01/2016 None Full Exam - General 1994 Respiratory respiratory effort/rhythm Overall: normal rate 06/01/2016 None Full Exam - General 1994 Cardiovascular extremities Overall: no clubbing 06/01/2016 None Full Exam - General 1994 Cardiovascular auscultation of heart Rate: regular rate 06/01/2016 None Full Exam - General 1994 Cardiovascular auscultation of heart Rhythm: irregularly irregular rhythm 06/01/2016 None Full Exam - General 1994 Abdomen abdominal exam Overall: no tenderness 06/01/2016 None Full Exam - General 1994 Abdomen abdominal exam Overall: normal bowel sounds 06/01/2016 None Full Exam - General 1994 Lymphatic neck nodes Overall: anterior cervical chain benign 06/01/2016 None Full Exam - General 1994 Lymphatic neck nodes Overall: posterior cervical chain benign 06/01/2016 None Full Exam - General 1994 Musculoskeletal spine, ribs and pelvis Overall: spine benign 06/01/2016 None Full Exam - General 1994 Musculoskeletal spine, ribs and pelvis Overall: sacroiliac joint benign 06/01/2016 None Full Exam - General 1994 Musculoskeletal spine, ribs and pelvis Overall: good posture 06/01/2016 None Full Exam - General 1994 Musculoskeletal head and neck Overall: head atraumatic 06/01/2016 None Full Exam - General 1994 Musculoskeletal head and neck Overall: cervical spine benign 06/01/2016 None Full Exam - General 1994 Integument inspection of skin Overall: few scattered moles, no gross abnormalities 06/01/2016 None Full Exam - General 1994 Neurologic deep tendon reflexes Overall: deep tendon reflexes intact 06/01/2016 None Full Exam - General 1994 Neurologic cranial nerves Overall: crainial nerves 2 - 12 grossly intact 06/01/2016 None Full Exam - General 1994 Psychiatric orientation/consciousness Overall: oriented to person, place and time 06/01/2016 None Full Exam - General 1994 Psychiatric mood and affect Overall: normal mood and affect 06/01/2016 None Full Exam - General 1994 Constitutional general appearance Development: well developed 12/02/2015 None Full Exam - General 1994 Constitutional general appearance Development: appears stated age 0612/02/2015 None Full Exam - General 1994 Constitutional general appearance Hygiene/Attention to Grooming: good hygiene 12/02/2015 None Full Exam - General 1994 Eyes conjunctiva /eyelids Overall: conjunctiva clear 12/02/2015 None Full Exam - General 1994 Eyes conjunctiva /eyelids Overall: cornea clear 12/02/2015 None Full Exam - General 1994 Eyes conjunctiva /eyelids Overall: eyelids normal 12/02/2015 None Full Exam - General 1994 Eyes pupils and irises Overall: pupils equal, round, reactive to light and accomodation 12/02/2015 None Full Exam - General 1994 Ears/Nose/Throat otoscopic exam Overall: external auditory canals clear 12/02/2015 None Full Exam - General 1994 Ears/Nose/Throat otoscopic exam Overall: tympanic membranes clear 12/02/2015 None Full Exam - General 1994 Ears/Nose/Throat lips/teeth/gingiva Overall: benign lips 12/02/2015 None Full Exam - General 1994 Ears/Nose/Throat lips/teeth/gingiva Overall: normal dentition 12/02/2015 None Full Exam - General 1994 Ears/Nose/Throat oral cavity/pharynx/larynx Overall: oral mucosa clear 12/02/2015 None Full Exam - General 1994 Ears/Nose/Throat oral cavity/pharynx/larynx Overall: oropharyngeal mucosa clear 12/02/2015 None Full Exam - General 1994 Ears/Nose/Throat oral cavity/pharynx/larynx Overall: hypopharynx benign 12/02/2015 None Full Exam - General 1994 Ears/Nose/Throat oral cavity/pharynx/larynx Overall: no masses 12/02/2015 None Full Exam - General 1994 Respiratory auscultation Overall: breath sounds clear bilaterally 12/02/2015 None Full Exam - General 1994 Respiratory respiratory effort/rhythm Overall: no retractions 12/02/2015 None Full Exam - General 1994 Respiratory respiratory effort/rhythm Overall: normal rate 12/02/2015 None Full Exam - General 1994 Cardiovascular extremities Overall: no clubbing 12/02/2015 None Full Exam - General 1994 Cardiovascular auscultation of heart Rate: regular rate 12/02/2015 None Full Exam - General 1994 Cardiovascular auscultation of heart Rhythm: irregularly irregular rhythm 12/02/2015 None Full Exam - General 1994 Abdomen abdominal exam Overall: no tenderness 12/02/2015 None Full Exam - General 1994 Abdomen abdominal exam Overall: normal bowel sounds 12/02/2015 None Full Exam - General 1994 Lymphatic neck nodes Overall: anterior cervical chain benign 12/02/2015 None Full Exam - General 1994 Lymphatic neck nodes Overall: posterior cervical chain benign 12/02/2015 None Full Exam - General 1994 Musculoskeletal spine, ribs and pelvis Overall: spine benign 12/02/2015 None Full Exam - General 1994 Musculoskeletal spine, ribs and pelvis Overall: sacroiliac joint benign 12/02/2015 None Full Exam - General 1994 Musculoskeletal spine, ribs and pelvis Overall: good posture 12/02/2015 None Full Exam - General 1994 Musculoskeletal head and neck Overall: head atraumatic 12/02/2015 None Full Exam - General 1994 Musculoskeletal head and neck Overall: cervical spine benign 12/02/2015 None Full Exam - General 1994 Integument inspection of skin Overall: few scattered moles, no gross abnormalities 12/02/2015 None Full Exam - General 1994 Neurologic deep tendon reflexes Overall: deep tendon reflexes intact 12/02/2015 None Full Exam - General 1994 Neurologic cranial nerves Overall: crainial nerves 2 - 12 grossly intact 12/02/2015 None Full Exam - General 1994 Psychiatric orientation/consciousness Overall: oriented to person, place and time 12/02/2015 None Full Exam - General 1994 Psychiatric mood and affect Overall: normal mood and affect 12/02/2015 None Full Exam - General 1994 Constitutional general appearance Development: well developed 05/27/2015 None Full Exam - General 1994 Constitutional general appearance Development: appears stated age 1205/27/2015 None Full Exam - General 1994 Constitutional general appearance Hygiene/Attention to Grooming: good hygiene 05/27/2015 None Full Exam - General 1994 Eyes conjunctiva /eyelids Overall: conjunctiva clear 05/27/2015 None Full Exam - General 1994 Eyes conjunctiva /eyelids Overall: cornea clear 05/27/2015 None Full Exam - General 1994 Eyes conjunctiva /eyelids Overall: eyelids normal 05/27/2015 None Full Exam - General 1994 Eyes pupils and irises Overall: pupils equal, round, reactive to light and accomodation 05/27/2015 None Full Exam - General 1994 Ears/Nose/Throat otoscopic exam Overall: external auditory canals clear 05/27/2015 None Full Exam - General 1994 Ears/Nose/Throat otoscopic exam Overall: tympanic membranes clear 05/27/2015 None Full Exam - General 1994 Ears/Nose/Throat lips/teeth/gingiva Overall: benign lips 05/27/2015 None Full Exam - General 1994 Ears/Nose/Throat lips/teeth/gingiva Overall: normal dentition 05/27/2015 None Full Exam - General 1994 Ears/Nose/Throat oral cavity/pharynx/larynx Overall: oral mucosa clear 05/27/2015 None Full Exam - General 1994 Ears/Nose/Throat oral cavity/pharynx/larynx Overall: oropharyngeal mucosa clear 05/27/2015 None Full Exam - General 1994 Ears/Nose/Throat oral cavity/pharynx/larynx Overall: hypopharynx benign 05/27/2015 None Full Exam - General 1994 Ears/Nose/Throat oral cavity/pharynx/larynx Overall: no masses 05/27/2015 None Full Exam - General 1994 Respiratory auscultation Overall: breath sounds clear bilaterally 05/27/2015 None Full Exam - General 1994 Respiratory respiratory effort/rhythm Overall: no retractions 05/27/2015 None Full Exam - General 1994 Respiratory respiratory effort/rhythm Overall: normal rate 05/27/2015 None Full Exam - General 1994 Cardiovascular extremities Overall: no clubbing 05/27/2015 None Full Exam - General 1994 Abdomen abdominal exam Overall: no tenderness 05/27/2015 None Full Exam - General 1994 Abdomen abdominal exam Overall: normal bowel sounds 05/27/2015 None Full Exam - General 1994 Lymphatic neck nodes Overall: anterior cervical chain benign 05/27/2015 None Full Exam - General 1994 Lymphatic neck nodes Overall: posterior cervical chain benign 05/27/2015 None Full Exam - General 1994 Musculoskeletal spine, ribs and pelvis Overall: spine benign 05/27/2015 None Full Exam - General 1994 Musculoskeletal spine, ribs and pelvis Overall: sacroiliac joint benign 05/27/2015 None Full Exam - General 1994 Musculoskeletal spine, ribs and pelvis Overall: good posture 05/27/2015 None Full Exam - General 1994 Musculoskeletal head and neck Overall: head atraumatic 05/27/2015 None Full Exam - General 1994 Musculoskeletal head and neck Overall: cervical spine benign 05/27/2015 None Full Exam - General 1994 Integument inspection of skin Overall: few scattered moles, no gross abnormalities 05/27/2015 None Full Exam - General 1994 Neurologic deep tendon reflexes Overall: deep tendon reflexes intact 05/27/2015 None Full Exam - General 1994 Neurologic cranial nerves Overall: crainial nerves 2 - 12 grossly intact 05/27/2015 None Full Exam - General 1994 Psychiatric orientation/consciousness Overall: oriented to person, place and time 05/27/2015 None Full Exam - General 1994 Psychiatric mood and affect Overall: normal mood and affect 05/27/2015 None Full Exam - General 1994 Cardiovascular auscultation of heart Rate: regular rate 05/27/2015 None Full Exam - General 1994 Cardiovascular auscultation of heart Rhythm: irregularly irregular rhythm 05/27/2015 None Full Exam - General 1994 Constitutional general appearance Development: well developed 11/27/2014 None Full Exam - General 1994 Constitutional general appearance Development: appears stated age 0611/27/2014 None Full Exam - General 1994 Constitutional general appearance Hygiene/Attention to Grooming: good hygiene 11/27/2014 None Full Exam - General 1994 Eyes conjunctiva /eyelids Overall: conjunctiva clear 11/27/2014 None Full Exam - General 1994 Eyes conjunctiva /eyelids Overall: cornea clear 11/27/2014 None Full Exam - General 1994 Eyes conjunctiva /eyelids Overall: eyelids normal 11/27/2014 None Full Exam - General 1994 Eyes pupils and irises Overall: pupils equal, round, reactive to light and accomodation 11/27/2014 None Full Exam - General 1994 Ears/Nose/Throat otoscopic exam Overall: external auditory canals clear 11/27/2014 None Full Exam - General 1994 Ears/Nose/Throat otoscopic exam Overall: tympanic membranes clear 11/27/2014 None Full Exam - General 1994 Ears/Nose/Throat lips/teeth/gingiva Overall: benign lips 11/27/2014 None Full Exam - General 1994 Ears/Nose/Throat lips/teeth/gingiva Overall: normal dentition 11/27/2014 None Full Exam - General 1994 Ears/Nose/Throat oral cavity/pharynx/larynx Overall: oral mucosa clear 11/27/2014 None Full Exam - General 1994 Ears/Nose/Throat oral cavity/pharynx/larynx Overall: oropharyngeal mucosa clear 11/27/2014 None Full Exam - General 1994 Ears/Nose/Throat oral cavity/pharynx/larynx Overall: hypopharynx benign 11/27/2014 None Full Exam - General 1994 Ears/Nose/Throat oral cavity/pharynx/larynx Overall: no masses 11/27/2014 None Full Exam - General 1994 Respiratory auscultation Overall: breath sounds clear bilaterally 11/27/2014 None Full Exam - General 1994 Respiratory respiratory effort/rhythm Overall: no retractions 11/27/2014 None Full Exam - General 1994 Respiratory respiratory effort/rhythm Overall: normal rate 11/27/2014 None Full Exam - General 1994 Cardiovascular extremities Overall: no clubbing 11/27/2014 None Full Exam - General 1994 Cardiovascular auscultation of heart Overall: regular rate 11/27/2014 None Full Exam - General 1994 Cardiovascular auscultation of heart Overall: normal heart sounds 11/27/2014 None Full Exam - General 1994 Abdomen abdominal exam Overall: no tenderness 11/27/2014 None Full Exam - General 1994 Abdomen abdominal exam Overall: normal bowel sounds 11/27/2014 None Full Exam - General 1994 Lymphatic neck nodes Overall: anterior cervical chain benign 11/27/2014 None Full Exam - General 1994 Lymphatic neck nodes Overall: posterior cervical chain benign 11/27/2014 None Full Exam - General 1994 Musculoskeletal spine, ribs and pelvis Overall: spine benign 11/27/2014 None Full Exam - General 1994 Musculoskeletal spine, ribs and pelvis Overall: sacroiliac joint benign 11/27/2014 None Full Exam - General 1994 Musculoskeletal spine, ribs and pelvis Overall: good posture 11/27/2014 None Full Exam - General 1994 Musculoskeletal head and neck Overall: head atraumatic 11/27/2014 None Full Exam - General 1994 Musculoskeletal head and neck Overall: cervical spine benign 11/27/2014 None Full Exam - General 1994 Integument inspection of skin Overall: few scattered moles, no gross abnormalities 11/27/2014 None Full Exam - General 1994 Neurologic deep tendon reflexes Overall: deep tendon reflexes intact 11/27/2014 None Full Exam - General 1994 Neurologic cranial nerves Overall: crainial nerves 2 - 12 grossly intact 11/27/2014 None Full Exam - General 1994 Psychiatric orientation/consciousness Overall: oriented to person, place and time 11/27/2014 None Full Exam - General 1994 Psychiatric mood and affect Overall: normal mood and affect 11/27/2014 None Procedures Procedure Codes Date THER/PROPH/DIAG INJ SC/IM CPT-4: 50568 10/05/2016 TRIAMCINOLONE ACET INJ NOS CPT-4: J3301 10/05/2016 Vital Signs Date Vital 02/04/2018 Blood Pressure 1: 144/70 Code : 8480-6 BMI: 24.9 Code : 77605-3 Heart Rate 1 : 64 bpm Height: 5'3" SpO2: 98% Weight: 143 lbs 09/20/2017 Blood Pressure 1: 132/70 Code : 8480-6 BMI: 25.3 Code : 99785-5 Heart Rate 1 : 69 bpm Height: 5'3" SpO2: 95% Weight: 145 lbs 08/13/2017 Blood Pressure 1: 140/80 Code : 8480-6 BMI: 24.9 Code : 34719-6 Heart Rate 1 : 65 bpm Height: 5'3" SpO2: 98% Weight: 143 lbs 02/06/2017 Blood Pressure 1: 124/76 Code : 8480-6 BMI: 25.1 Code : 74104-0 Heart Rate 1 : 67 bpm Height: 5'3" SpO2: 97% Weight: 144 lbs 10/17/2016 Blood Pressure 1: 140/78 Code : 8480-6 Heart Rate 1: 55 bpm Height: 5'3" SpO2: 98% Weight: 10/05/2016 Blood Pressure 1: 150/82 Code : 8480-6 BMI: 24.9 Code : 40109-2 Heart Rate 1 : 70 bpm Height: 5'3" SpO2: 97% Weight: 143 lbs 06/01/2016 Blood Pressure 1: 128/70 Code : 8480-6 BMI: 24.9 Code : 28309-9 Heart Rate 1 : 68 bpm Height: 5'3" SpO2: 98% Weight: 143 lbs 12/02/2015 Blood Pressure 1: 138/78 Code : 8480-6 BMI: 24.9 Code : 29280-3 Heart Rate 1 : 69 bpm Height: 5'3" SpO2: 97% Weight: 143 lbs 05/27/2015 Blood Pressure 1: 118/68 Code : 8480-6 BMI: 24.8 Code : 17767-2 Heart Rate 1 : 60 bpm Height: 5'3" SpO2: 98% Weight: 142 lbs 11/27/2014 Blood Pressure 1: 154/82 Code : 8480-6 BMI: 25.1 Code : 84987-5 Heart Rate 1 : 64 bpm Height: 5'3" Weight: 144 lbs Functional Status No Functional Status data History of Present Illness Symptom Name Status Result Effective Date Notes hypertension Quality chronic 02/04/2018 None hypertension Quality primary hypertension 02/04/2018 None hypertension Onset and Resolution ongoing 02/04/2018 None hypertension Onset of Symptom during adulthood 02/04/2018 None hypertension Alleviating Factors medication 02/04/2018 None hypertension Pertinent Findings decreased energy 02/04/2018 None hypertension Pertinent Findings Denies dizziness 02/04/2018 None hypertension Pertinent Findings Denies dyspnea 02/04/2018 None hypertension Pertinent Findings Denies edema 02/04/2018 None hyperlipidemia Onset and Resolution gradual in onset 02/04/2018 None hyperlipidemia Onset of Symptom during adulthood 02/04/2018 None hyperlipidemia Significant Medications statin 02/04/2018 None hyperlipidemia Alleviating Factors medication 02/04/2018 None hyperlipidemia Exacerbating Factors diet 02/04/2018 None arrhythmia Quality chronic 02/04/2018 None arrhythmia Quality irregular beats 02/04/2018 -atrial fibrillation arrhythmia Alleviating Factors medication 02/04/2018 None hyperlipidemia Quality chronic 02/04/2018 None low back pain Location on the right 02/04/2018 None low back pain Quality acute 02/04/2018 None low back pain Quality intermittent 02/04/2018 None low back pain Onset and Resolution sudden in onset 02/04/2018 None low back pain Onset of Symptom 1 months ago 02/04/2018 None low back pain Limitation on Activities allows weight bearing activity 02/04/2018 None low back pain Triggers activity 02/04/2018 None low back pain Triggers bending 02/04/2018 None low back pain Alleviating Factors lying down 02/04/2018 None low back pain Alleviating Factors sitting 02/04/2018 None low back pain Alleviating Factors rest 02/04/2018 None rash Location-Major on the upper body 09/20/2017 None rash Location-Trunk on the upper chest 09/20/2017 None rash Location-Trunk on the left upper chest 09/20/2017 None rash Location-Trunk on the left breast 09/20/2017 None rash Location-Extremities in the left axilla 09/20/2017 None rash Quality acute 10/2017 None rash Color erythematous 09/20/2017 None rash Color red 2017 None rash Color pink 2017 None rash Quality enlarging 09/20/2017 None rash Quality pustular 09/20/2017 None rash Quality painful 09/20/2017 None rash Quality uncomfortable 09/20/2017 None rash Triggers no known triggers 09/20/2017 None rash Alleviating Factors no alleviating factors 09/20/2017 None rash Pertinent Findings Denies itching 09/20/2017 None rash Pertinent Findings pain 09/20/2017 None rash Pertinent Findings tenderness 09/20/2017 None hypertension Quality chronic 08/13/2017 None hypertension Onset and Resolution ongoing 08/13/2017 None hypertension Onset of Symptom during adulthood 08/13/2017 None hypertension Alleviating Factors medication 08/13/2017 None hypertension Pertinent Findings Denies dizziness 08/13/2017 None hypertension Pertinent Findings Denies dyspnea 08/13/2017 None hypertension Pertinent Findings Denies edema 08/13/2017 None hyperlipidemia Onset and Resolution gradual in onset 08/13/2017 None hyperlipidemia Onset of Symptom during adulthood 08/13/2017 None hyperlipidemia Significant Medications statin 08/13/2017 None hyperlipidemia Alleviating Factors medication 08/13/2017 None hyperlipidemia Exacerbating Factors diet 08/13/2017 None arrhythmia Quality chronic 08/13/2017 None arrhythmia Quality irregular beats 08/13/2017 -atrial fibrillation hypertension Quality primary hypertension 08/13/2017 None arrhythmia Alleviating Factors medication 08/13/2017 None hypertension Pertinent Findings decreased energy 08/13/2017 None hypertension Quality chronic 02/06/2017 None hypertension Onset and Resolution ongoing 02/06/2017 She checks it some, but not every day hypertension Onset of Symptom during adulthood 02/06/2017 None hypertension Alleviating Factors medication 02/06/2017 None hypertension Pertinent Findings decreased energy 02/06/2017 None hypertension Pertinent Findings Denies dizziness 02/06/2017 None hypertension Pertinent Findings Denies dyspnea 02/06/2017 None hypertension Pertinent Findings Denies edema 02/06/2017 None hyperlipidemia Onset and Resolution gradual in onset 02/06/2017 None hyperlipidemia Onset and Resolution ongoing 02/06/2017 None hyperlipidemia Onset of Symptom during adulthood 02/06/2017 None hyperlipidemia Significant Medications statin 02/06/2017 None hyperlipidemia Alleviating Factors medication 02/06/2017 None hyperlipidemia Exacerbating Factors diet 02/06/2017 None arrhythmia Quality chronic 02/06/2017 None arrhythmia Quality irregular beats 02/06/2017 -atrial fibrillation headache Pertinent Findings Denies blurred vision 10/17/2016 None headache Pertinent Findings dizziness 10/17/2016 None headache Quality acute 10/17/2016 None headache Onset of Symptom 2+ weeks ago 10/17/2016 None headache Pertinent Findings lightheadedness 10/17/2016 None headache Location diffusely 10/05/2016 None headache Quality aching 10/05/2016 None headache Quality constant 10/05/2016 None headache Quality pressure 10/05/2016 None headache Onset and Resolution sudden in onset 10/05/2016 None headache Onset of Symptom 1 weeks ago 10/05/2016 None headache Frequency of Episodes daily 10/05/2016 None headache Triggers change in vision 10/05/2016 None headache Pertinent Findings blurred vision 10/05/2016 None headache Pertinent Findings dizziness 10/05/2016 None hypertension Quality chronic 06/01/2016 None hypertension Onset and Resolution ongoing 06/01/2016 She checks it some, but not every day hypertension Onset of Symptom during adulthood 06/01/2016 None hypertension Alleviating Factors medication 06/01/2016 None hypertension Pertinent Findings Denies dizziness 06/01/2016 None hypertension Pertinent Findings Denies dyspnea 06/01/2016 None hypertension Pertinent Findings Denies edema 06/01/2016 None hyperlipidemia Onset and Resolution gradual in onset 06/01/2016 None hyperlipidemia Onset and Resolution ongoing 06/01/2016 None hyperlipidemia Onset of Symptom during adulthood 06/01/2016 None hyperlipidemia Significant Medications statin 06/01/2016 None hyperlipidemia Alleviating Factors medication 06/01/2016 None hyperlipidemia Exacerbating Factors diet 06/01/2016 None arrhythmia Quality chronic 06/01/2016 None arrhythmia Quality irregular beats 06/01/2016 -atrial fibrillation hypertension Pertinent Findings decreased energy 06/01/2016 None hypertension Quality chronic 12/02/2015 None hypertension Onset and Resolution ongoing 12/02/2015 She checks it some, but not every day hypertension Onset of Symptom during adulthood 12/02/2015 None hypertension Alleviating Factors medication 12/02/2015 None hypertension Pertinent Findings Denies dizziness 12/02/2015 None hypertension Pertinent Findings Denies dyspnea 12/02/2015 None hypertension Pertinent Findings Denies edema 12/02/2015 None hyperlipidemia Onset and Resolution ongoing 12/02/2015 None hyperlipidemia Onset of Symptom during adulthood 12/02/2015 None hyperlipidemia Significant Medications statin 12/02/2015 None hyperlipidemia Alleviating Factors medication 12/02/2015 None hyperlipidemia Exacerbating Factors diet 12/02/2015 None arrhythmia Quality chronic 12/02/2015 None arrhythmia Quality irregular beats 12/02/2015 -atrial fibrillation hyperlipidemia Onset and Resolution gradual in onset 12/02/2015 None mole check Location-Major on the head 12/02/2015 None mole check Location-Head/Neck on the left cheek 12/02/2015 None mole check Location-Head/Neck on the forehead 12/02/2015 None hypertension Quality chronic 05/27/2015 None hypertension Onset and Resolution ongoing 05/27/2015 She checks it some, but not every day hypertension Onset of Symptom during adulthood 05/27/2015 None hypertension Pertinent Findings Denies dizziness 05/27/2015 None hypertension Pertinent Findings Denies dyspnea 05/27/2015 None hypertension Pertinent Findings Denies edema 05/27/2015 None hyperlipidemia Onset and Resolution ongoing 05/27/2015 None hypertension Alleviating Factors medication 05/27/2015 None hyperlipidemia Onset of Symptom during adulthood 05/27/2015 None hyperlipidemia Alleviating Factors medication 05/27/2015 None hyperlipidemia Exacerbating Factors diet 05/27/2015 None hyperlipidemia Significant Medications statin 05/27/2015 None hypertension Onset and Resolution ongoing 11/27/2014 she has a cufff at home , doesnt take it everyday, reports 120-130s/70s. hypertension Pertinent Findings Denies dyspnea 11/27/2014 None hypertension Pertinent Findings Denies edema 11/27/2014 None hypertension Pertinent Findings Denies dizziness 11/27/2014 None hyperlipidemia Onset and Resolution ongoing 11/27/2014 None hypertension Quality chronic 11/27/2014 None hypertension Onset of Symptom during adulthood 11/27/2014 None Advance Directives No Advance Directive data Encounters Encounter Performer Location Codes Date ([id number]) 27020 EST. PATIENT, LEVEL IV Diagnosis: Essential (primary) hypertension[ICD10: I10] Diagnosis: Mixed hyperlipidemia[ICD10: E78.2] Diagnosis: Chronic atrial fibrillation[ICD10: I48.2] Diagnosis: Low back pain[ICD10: M54.5] [facility] CPT- 4: 45798 02/04/2018 21949 EST. PATIENT, LEVEL II Diagnosis: Zoster without complications[ICD10: B02.9] [facility] CPT-4: 11639 09/20/2017 ([id number]) 38896 EST. PATIENT, LEVEL IV Diagnosis: Essential (primary) hypertension[ICD10: I10] Diagnosis: Mixed hyperlipidemia[ICD10: E78.2] Diagnosis: Chronic atrial fibrillation[ICD10: I48.2] Destiny Tobias MD [facility] CPT-4: 56190 08/13/2017 ([id number]) 54924 EST. PATIENT, LEVEL IV Diagnosis: Essential (primary) hypertension[ICD10: I10] Diagnosis: Mixed hyperlipidemia[ICD10: E78.2] Diagnosis: Chronic atrial fibrillation[ICD10: I48.2] Diagnosis: Gastro-esophageal reflux disease without esophagitis[ICD10: K21.9] Destiny Tobias MD [facility] CPT-4: 47061 02/06/2017 ([id number]) 66800 EST. PATIENT, LEVEL IV Diagnosis: Essential (primary) hypertension[ICD10: I10] Diagnosis: Headache[ICD10: R51] Destiny Tobias MD [facility] CPT-4: 29145 10/17/2016 ([id number]) 90713 EST. PATIENT, LEVEL IV Diagnosis: Headache[ICD10: R51] Diagnosis: Essential (primary) hypertension[ICD10: I10] Diagnosis: Mixed hyperlipidemia[ICD10: E78.2] Diagnosis: Chronic atrial fibrillation[ICD10: I48.2] Diagnosis: Other allergic rhinitis[ICD10: J30.89] Destiny Tobias MD [facility] CPT-4: 55172 10/05/2016 ([id number]) 32976 EST. PATIENT, LEVEL IV Diagnosis: Essential (primary) hypertension[ICD10: I10] Diagnosis: Mixed hyperlipidemia[ICD10: E78.2] Diagnosis: Chronic atrial fibrillation[ICD10: I48.2] Destiny Tobias MD [facility] CPT-4: 10742 06/01/2016 ([id number]) 41642 EST. PATIENT, LEVEL IV Diagnosis: Essential (primary) hypertension[ICD10: I10] Diagnosis: Chronic atrial fibrillation[ICD10: I48.2] Diagnosis: Mixed hyperlipidemia[ICD10: E78.2] Destiny Tobias MD [facility] CPT-4: 96093 12/02/2015 ([id number]) 34809 EST. PATIENT, LEVEL IV Diagnosis: Essential (primary) hypertension[ICD10: I10] Diagnosis: Chronic atrial fibrillation[ICD10: I48.2] Diagnosis: Mixed hyperlipidemia[ICD10: E78.2] [facility] CPT-4: 98961 05/27/2015 ([id number]) OFFICE VISIT, NEW - LEVEL 4 Diagnosis: ESSENTIAL HYPERTENSION[ICD9: 401.9] Diagnosis: HYPERLIPIDEMIA[ICD9: 272.4] Diagnosis: ATRIAL FIBRILLATION[ICD9: 427.31] [facility] CPT-4: 47255 11/27/2014 Plan of Care Planned Activity Notes Codes Status Date Visit Plan: Hypertension - well controlled - continue with current medications, continue with no added salt diet. Pt has been encouraged to exercise daily. The pt has been advised to call the office if there are any acute concerns about change in blood pressure readings at home. back pain - discussed exercises with pt today - stretching, heat to back Hyperlipidemia - pt has been counseled about appropriate diet, exercise, and need for low fat food choices. I have discussed the need for the patient to take medications as prescribed. If the patient has negative side effects from the medication, they are to CALL the office and not abruptly discontinue the medication without discussion with a practitioner in the office. We will check labs in 3-6 months for follow up on the patient's chronic medical problem and to assure normal liver response to medications. Pt will need to have a colonoscopy scheduled with Dr. Waterman for end march Afib - on eliquis - rate controlled - continue current regimen 02/04/2018 Patient Education: Patient Medication Summary Completed 02/04/2018 Appointment: Nurse Visit 09/27/2017 Visit Plan: Shingles - Herpes Zoster - acute in onset - pt started on acyclovir and instructed to call if symptoms worsen or if the pt is concerned about the symptoms. Pt has been advised to avoid contact with persons who may be , or infants, or immunocompromised individuals. Pt has been instructed that shingles will continue to break out and eventually scab over a two week period, until all of the vesicles are scabbed, the pt is to be considered contagious. 09/20/2017 Appointment: Danette Acharya WPtel: [address] [place], [place] [phone] (30 min) [facility] 09/20/2017 Patient Education: Patient Medication Summary Completed 09/20/2017 Visit Plan: Hypertension - well controlled - continue with current medications, continue with no added salt diet. Pt has been encouraged to exercise daily. The pt has been advised to call the office if there are any acute concerns about change in blood pressure readings at home. Hyperlipidemia - pt has been counseled about appropriate diet, exercise, and need for low fat food choices. I have discussed the need for the patient to take medications as prescribed. If the patient has negative side effects from the medication, they are to CALL the office and not abruptly discontinue the medication without discussion with a practitioner in the office. We will check labs in 3-6 months for follow up on the patient's chronic medical problem and to assure normal liver response to medications. Afib - on eliquis - rate controlled - continue current regimen 08/13/2017 Appointment: Destiny Tobias WPtel: [phone] (15 min) Moderate 08/13/2017 Patient Education: Patient Medication Summary Completed 08/13/2017 Visit Plan: Hypertension - well controlled - continue with current medications, continue with no added salt diet. Pt has been encouraged to exercise daily. The pt has been advised to call the office if there are any acute concerns about change in blood pressure readings at home. Hyperlipidemia - pt has been counseled about appropriate diet, exercise, and need for low fat food choices. I have discussed the need for the patient to take medications as prescribed. If the patient has negative side effects from the medication, they are to CALL the office and not abruptly discontinue the medication without discussion with a practitioner in the office. We will check labs in 3-6 months for follow up on the patient's chronic medical problem and to assure normal liver response to medications. Esophageal Reflux - the patient has been counseled against excessive intake of caffeine, spicy foods, peppermint, and cinnamon - all of which can exacerbate esophageal reflux. The patient is to take medications as prescribed and call the office if the symptoms are not improving. Atrial Fibrillation - pt on chronic anticoagulation and is currently rate controlled. The pt is to have labs done as appropriate to monitor medication levels and is to report if they start to feel as if their heart rate is becoming uncontrolled. 02/06/2017 Appointment: Destiny Tobias WPtel: [phone] [id number] (15 min) Moderate 02/06/2017 Patient Education: Patient Medication Summary Completed 02/06/2017 Appointment: Destiny Tobias WPtel: [phone] [facility] (15 min) Moderate 11/30/2016 Visit Plan: Hypertension - well controlled - continue with current medications, continue with no added salt diet. Pt has been encouraged to exercise daily. The pt has been advised to call the office if there are any acute concerns about change in blood pressure readings at home. Headache improved. 10/17/2016 Appointment: Ken Tobiasy WPtel: [id number] (15 min) Moderate 10/17/2016 Patient Education: Patient Medication Summary Completed 10/17/2016 Visit Plan: Hypertension - well controlled - continue with current medications, continue with no added salt diet. Pt has been encouraged to exercise daily. The pt has been advised to call the office if there are any acute concerns about change in blood pressure readings at home. Hyperlipidemia - pt has been counseled about appropriate diet, exercise, and need for low fat food choices. I have discussed the need for the patient to take medications as prescribed. If the patient has negative side effects from the medication, they are to CALL the office and not abruptly discontinue the medication without discussion with a practitioner in the office. We will check labs in 3-6 months for follow up on the patient's chronic medical problem and to assure normal liver response to medications. Atrial Fibrillation - pt on chronic anticoagulation and is currently rate controlled. The pt is to have labs done as appropriate to monitor medication levels and is to report if they start to feel as if their heart rate is becoming uncontrolled. Allergies - kenalog shot today 10/05/2016 Appointment: Jatinder Destiny WPtel: [phone] [id number] (15 min) Moderate 10/05/2016 Patient Education: Patient Medication Summary Completed 10/05/2016 Visit Plan: Hypertension - well controlled - continue with current medications, continue with no added salt diet. Pt has been encouraged to exercise daily. The pt has been advised to call the office if there are any acute concerns about change in blood pressure readings at home. Hyperlipidemia - pt has been counseled about appropriate diet, exercise, and need for low fat food choices. I have discussed the need for the patient to take medications as prescribed. If the patient has negative side effects from the medication, they are to CALL the office and not abruptly discontinue the medication without discussion with a practitioner in the office. We will check labs in 3-6 months for follow up on the patient's chronic medical problem and to assure normal liver response to medications. Atrial Fibrillation - pt on chronic anticoagulation and is currently rate controlled. The pt is to have labs done as appropriate to monitor medication levels and is to report if they start to feel as if their heart rate is becoming uncontrolled. 06/01/2016 Patient Education: Patient Medication Summary Completed 06/01/2016 Care Plan: Comp Metabolic Pending 06/01/2016 Care Plan: Cbc With Differential Pending 06/01/2016 Care Plan: Tsh Pending 06/01/2016 Patient Education: Patient Medication Summary Completed 05/23/2016 Visit Plan: Hypertension - well controlled - continue with current medications, continue with no added salt diet. Pt has been encouraged to exercise daily. The pt has been advised to call the office if there are any acute concerns about change in blood pressure readings at home. Hyperlipidemia - pt has been counseled about appropriate diet, exercise, and need for low fat food choices. I have discussed the need for the patient to take medications as prescribed. If the patient has negative side effects from the medication, they are to CALL the office and not abruptly discontinue the medication without discussion with a practitioner in the office. We will check labs in 3-6 months for follow up on the patient's chronic medical problem and to assure normal liver response to medications. Atrial Fibrillation - pt on chronic anticoagulation and is currently rate controlled. The pt is to have labs done as appropriate to monitor medication levels and is to report if they start to feel as if their heart rate is becoming uncontrolled. 12/02/2015 Appointment: Destiny Tobias WPtel: [address] [place], [place] [id number] (15 min) Moderate 12/02/2015 Patient Education: Patient Medication Summary Completed 12/02/2015 Visit Plan: Hypertension - well controlled - continue with current medications, continue with no added salt diet. Pt has been encouraged to exercise daily. The pt has been advised to call the office if there are any acute concerns about change in blood pressure readings at home. Hyperlipidemia - pt has been counseled about appropriate diet, exercise, and need for low fat food choices. I have discussed the need for the patient to take medications as prescribed. If the patient has negative side effects from the medication, they are to CALL the office and not abruptly discontinue the medication without discussion with a practitioner in the office. We will check labs in 3-6 months for follow up on the patient's chronic medical problem and to assure normal liver response to medications. Atrial Fibrillation - pt on chronic anticoagulation and is currently rate controlled. The pt is to have labs done as appropriate to monitor medication levels and is to report if they start to feel as if their heart rate is becoming uncontrolled. 05/27/2015 Patient Education: Patient Medication Summary Completed 05/27/2015 Patient Education: Hypertension Completed 05/27/2015 Care Plan: COMPLETE CBC AUTOMATED LOINC : 76617-1 Ordered 05/27/2015 Visit Plan: Hypertension - well controlled - continue with current medications, continue with no added salt diet. Pt has been encouraged to exercise daily. The pt has been advised to call the office if there are any acute concerns about change in blood pressure readings at home. Hyperlipidemia - pt has been counseled about appropriate diet, exercise, and need for low fat food choices. I have discussed the need for the patient to take medications as prescribed. If the patient has negative side effects from the medication, they are to CALL the office and not abruptly discontinue the medication without discussion with a practitioner in the office. We will check labs in 3-6 months for follow up on the patient's chronic medical problem and to assure normal liver response to medications. Atrial Fibrillation - pt on chronic anticoagulation and is currently rate controlled. The pt is to have labs done as appropriate to monitor medication levels and is to report if they start to feel as if their heart rate is becoming uncontrolled. 11/27/2014 Appointment: Destiny Tobias [facility]el[id number] [place] [facility] New Patient 11/27/2014 Patient Education: Patient Medication Summary Completed 11/27/2014 Patient Education: Hypertension Completed 11/27/2014 Instructions Comment . Hypertension - well controlled - continue with current medications, continue with no added salt diet. Pt has been encouraged to exercise daily. The pt has been advised to call the office if there are any acute concerns about change in blood pressure readings at home. Hyperlipidemia - pt has been counseled about appropriate diet, exercise, and need for low fat food choices. I have discussed the need for the patient to take medications as prescribed. If the patient has negative side effects from the medication, they are to CALL the office and not abruptly discontinue the medication without discussion with a practitioner in the office. We will check labs in 3-6 months for follow up on the patient's chronic medical problem and to assure normal liver response to medications. Atrial Fibrillation - pt on chronic anticoagulation and is currently rate controlled. The pt is to have labs done as appropriate to monitor medication levels and is to report if they start to feel as if their heart rate is becoming uncontrolled. Allergies - kenalog shot today . Hypertension - well controlled - continue with current medications, continue with no added salt diet. Pt has been encouraged to exercise daily. The pt has been advised to call the office if there are any acute concerns about change in blood pressure readings at home. Hyperlipidemia - pt has been counseled about appropriate diet, exercise, and need for low fat food choices. I have discussed the need for the patient to take medications as prescribed. If the patient has negative side effects from the medication, they are to CALL the office and not abruptly discontinue the medication without discussion with a practitioner in the office. We will check labs in 3-6 months for follow up on the patient's chronic medical problem and to assure normal liver response to medications. Atrial Fibrillation - pt on chronic anticoagulation and is currently rate controlled. The pt is to have labs done as appropriate to monitor medication levels and is to report if they start to feel as if their heart rate is becoming uncontrolled. . Hypertension - well controlled - continue with current medications, continue with no added salt diet. Pt has been encouraged to exercise daily. The pt has been advised to call the office if there are any acute concerns about change in blood pressure readings at home. Hyperlipidemia - pt has been counseled about appropriate diet, exercise, and need for low fat food choices. I have discussed the need for the patient to take medications as prescribed. If the patient has negative side effects from the medication, they are to CALL the office and not abruptly discontinue the medication without discussion with a practitioner in the office. We will check labs in 3-6 months for follow up on the patient's chronic medical problem and to assure normal liver response to medications. Afib - on eliquis - rate controlled - continue current regimen . Hypertension - well controlled - continue with current medications, continue with no added salt diet. Pt has been encouraged to exercise daily. The pt has been advised to call the office if there are any acute concerns about change in blood pressure readings at home. back pain - discussed exercises with pt today - stretching, heat to back Hyperlipidemia - pt has been counseled about appropriate diet, exercise, and need for low fat food choices. I have discussed the need for the patient to take medications as prescribed. If the patient has negative side effects from the medication, they are to CALL the office and not abruptly discontinue the medication without discussion with a practitioner in the office. We will check labs in 3-6 months for follow up on the patient's chronic medical problem and to assure normal liver response to medications. Pt will need to have a colonoscopy scheduled with Dr. Waterman for end of march Afib - on eliquis - rate controlled - continue current regimen . Hypertension - well controlled - continue with current medications, continue with no added salt diet. Pt has been encouraged to exercise daily. The pt has been advised to call the office if there are any acute concerns about change in blood pressure readings at home. Hyperlipidemia - pt has been counseled about appropriate diet, exercise, and need for low fat food choices. I have discussed the need for the patient to take medications as prescribed. If the patient has negative side effects from the medication, they are to CALL the office and not abruptly discontinue the medication without discussion with a practitioner in the office. We will check labs in 3-6 months for follow up on the patient's chronic medical problem and to assure normal liver response to medications. Atrial Fibrillation - pt on chronic anticoagulation and is currently rate controlled. The pt is to have labs done as appropriate to monitor medication levels and is to report if they start to feel as if their heart rate is becoming uncontrolled. . Hypertension - well controlled - continue with current medications, continue with no added salt diet. Pt has been encouraged to exercise daily. The pt has been advised to call the office if there are any acute concerns about change in blood pressure readings at home. Headache improved. . Hypertension - well controlled - continue with current medications, continue with no added salt diet. Pt has been encouraged to exercise daily. The pt has been advised to call the office if there are any acute concerns about change in blood pressure readings at home. Hyperlipidemia - pt has been counseled about appropriate diet, exercise, and need for low fat food choices. I have discussed the need for the patient to take medications as prescribed. If the patient has negative side effects from the medication, they are to CALL the office and not abruptly discontinue the medication without discussion with a practitioner in the office. We will check labs in 3-6 months for follow up on the patient's chronic medical problem and to assure normal liver response to medications. Atrial Fibrillation - pt on chronic anticoagulation and is currently rate controlled. The pt is to have labs done as appropriate to monitor medication levels and is to report if they start to feel as if their heart rate is becoming uncontrolled. tums chewable alkaseltzer gas and acid peptobismol . Hypertension - well controlled - continue with current medications, continue with no added salt diet. Pt has been encouraged to exercise daily. The pt has been advised to call the office if there are any acute concerns about change in blood pressure readings at home. Hyperlipidemia - pt has been counseled about appropriate diet, exercise, and need for low fat food choices. I have discussed the need for the patient to take medications as prescribed. If the patient has negative side effects from the medication, they are to CALL the office and not abruptly discontinue the medication without discussion with a practitioner in the office. We will check labs in 3-6 months for follow up on the patient's chronic medical problem and to assure normal liver response to medications. Esophageal Reflux - the patient has been counseled against excessive intake of caffeine, spicy foods, peppermint, and cinnamon - all of which can exacerbate esophageal reflux. The patient is to take medications as prescribed and call the office if the symptoms are not improving. Atrial Fibrillation - pt on chronic anticoagulation and is currently rate controlled. The pt is to have labs done as appropriate to monitor medication levels and is to report if they start to feel as if their heart rate is becoming uncontrolled. . Shingles - Herpes Zoster - acute in onset - pt started on acyclovir and instructed to call if symptoms worsen or if the pt is concerned about the symptoms. Pt has been advised to avoid contact with persons who may be , or infants, or immunocompromised individuals. Pt has been instructed that shingles will continue to break out and eventually scab over a two week period, until all of the vesicles are scabbed, the pt is to be considered contagious. . Hypertension - well controlled - continue with current medications, continue with no added salt diet. Pt has been encouraged to exercise daily. The pt has been advised to call the office if there are any acute concerns about change in blood pressure readings at home. Hyperlipidemia - pt has been counseled about appropriate diet, exercise, and need for low fat food choices. I have discussed the need for the patient to take medications as prescribed. If the patient has negative side effects from the medication, they are to CALL the office and not abruptly discontinue the medication without discussion with a practitioner in the office. We will check labs in 3-6 months for follow up on the patient's chronic medical problem and to assure normal liver response to medications. Atrial Fibrillation - pt on chronic anticoagulation and is currently rate controlled. The pt is to have labs done as appropriate to monitor medication levels and is to report if they start to feel as if their heart rate is becoming uncontrolled.
--- OUTSIDE RECORDS SUMMARY | 2018-04-08 07:56 | XMS REPORT | Continuity of Care Document ---
Author Author [facility] Organization [facility] Address Unknown Phone Unavailable Allergies Active Description Code Type Severity Reaction Onset Reported/Identified Relationship to Patient Clinical Status Yes NKANo Known Allergies NKA Miscellaneous Allergy Unknown N/A 10/16/2005 Medications There is no data. Problems Date Dx Coded Attending Type Code Diagnosis Diagnosed By 04/30/2010 Ot 300.00 04/30/2010 Ot 401.9 04/30/2010 Ot 427.31 04/30/2010 Ot 530.81 04/30/2010 Ot 786.50 04/30/2010 Ot V58.61 04/30/2010 Ot V58.66 04/30/2010 Ot V58.69 11/04/2012 CODY VAGRAS MD Ot 401.9 HYPERTENSION NOS 11/04/2012 SAM BERNSTEIN, CODY Lott Ot 562.10 DIVERTICULOSIS COLON (W/O MENT OF HEMORR 11/04/2012 CODY VARGAS MD Ot V16.0 FAMILY HX-GI MALIGNANCY 11/04/2012 CODY VARGAS MD Ot V58.66 LONG-TERM (CURRENT) USE OF ASPIRIN 11/04/2012 CODY VARGAS MD Ot V58.69 OTH MED,LT,CURRENT USE 11/04/2012 CODY VARGAS MD Ot V76.51 SCREEN MAL NEOP-COLON 07/28/2014 KEITH PINEDA MD Ot V76.12 05/26/2015 Ot I10 05/26/2015 Ot I48.0 05/26/2015 Ot I65.23 05/26/2015 Ot R00.2 07/20/2015 Ot V76.12 07/20/2015 Ot 578.1 07/20/2015 Ot V12.72 07/20/2015 Ot V58.61 07/20/2015 Ot V58.69 07/20/2015 Ot V76.12 07/20/2015 Ot 427.31 07/20/2015 Ot 427.81 07/20/2015 Ot 427.31 07/20/2015 Ot 427.81 07/20/2015 Ot V76.12 07/20/2015 Ot 733.90 07/20/2015 SAM BERNSTEIN, CODY Lott Ot V72.84 07/20/2015 EDWIN BERNSTEIN, KEITH Lott Ot V76.12 07/20/2015 SHAHID SOUZA, LEONORA Pineda Ot 272.4 07/20/2015 LEONORA OWENS Ot 401.9 07/20/2015 LEONORA OWENS Ot 427.31 07/20/2015 LEONORA OWENS Ot 780.2 07/20/2015 KEITH PINEDA MD Ot V76.12 07/20/2015 Ot I10 07/20/2015 Ot I48.0 07/20/2015 Ot I65.23 07/20/2015 Ot R00.2 08/13/2015 ALON MARIO APRN Ot Z12.31 09/07/2016 Ot V76.12 OTH SCREEN MAMMO-MALIGN NEOPLASM OF BRENNA 09/07/2016 Ot 427.31 ATRIAL FIBRILLATION 09/07/2016 Ot 427.81 SINOATRIAL NODE DYSFUNCT 09/07/2016 Ot 427.31 ATRIAL FIBRILLATION 09/07/2016 Ot 427.81 SINOATRIAL NODE DYSFUNCT 09/07/2016 Ot V76.12 OTH SCREEN MAMMO-MALIGN NEOPLASM OF BRENNA 09/07/2016 Ot 733.90 BONE CARTILAGE DIS NOS 09/07/2016 SAM BERNSTEIN, CODY Lott Ot V72.84 EXAM PRE-OPERATIVE NOS 09/07/2016 KEITH PINEDA MD Ot V76.12 OTH SCREEN MAMMO-MALIGN NEOPLASM OF BRENNA 09/07/2016 LEONORA OWENS Ot 272.4 HYPERLIPIDEMIA NEC/NOS 09/07/2016 LEONORA OWENS Ot 401.9 HYPERTENSION NOS 09/07/2016 LEONORA OWENS Ot 427.31 ATRIAL FIBRILLATION 09/07/2016 LEONORA OWENS Ot 780.2 SYNCOPE AND COLLAPSE 09/07/2016 KEITH PINEDA MD Ot V76.12 OTH SCREEN MAMMO-MALIGN NEOPLASM OF BRENNA 09/07/2016 Ot I10 ESSENTIAL ( PRIMARY) HYPERTENSION 09/07/2016 Ot I48.0 PAROXYSMAL ATRIAL FIBRILLATION 09/07/2016 Ot I65.23 OCCLUSION AND STENOSIS OF BILATERAL MONTE 09/07/2016 Ot R00.2 PALPITATIONS 09/07/2016 ALON MARIO APRN Ot Z12.31 ENCNTR SCREEN MAMMOGRAM FOR MALIGNANT NE 09/07/2016 Ot V76.12 OTH SCREEN MAMMO-MALIGN NEOPLASM OF BRENNA 09/07/2016 Ot 427.31 ATRIAL FIBRILLATION 09/07/2016 Ot 427.81 SINOATRIAL NODE DYSFUNCT 09/07/2016 Ot 427.31 ATRIAL FIBRILLATION 09/07/2016 Ot 427.81 SINOATRIAL NODE DYSFUNCT 09/07/2016 Ot V76.12 OTH SCREEN MAMMO-MALIGN NEOPLASM OF BRENNA 09/07/2016 Ot 733.90 BONE CARTILAGE DIS NOS 09/07/2016 SAM BERNSTEIN, CDOY Lott Ot V72.84 EXAM PRE-OPERATIVE NOS 09/07/2016 EDWIN BERNSTEIN, KEITH Lott Ot V76.12 OTH SCREEN MAMMO-MALIGN NEOPLASM OF BRENNA 09/07/2016 LEONORA OWENS Ot 272.4 HYPERLIPIDEMIA NEC/NOS 09/07/2016 LEONORA OWENS Ot 401.9 HYPERTENSION NOS 09/07/2016 LEONORA OWENS Ot 427.31 ATRIAL FIBRILLATION 09/07/2016 LEONORA OWENS Ot 780.2 SYNCOPE AND COLLAPSE 09/07/2016 EDWIN BERNSTEIN, KEITH Lott Ot V76.12 OTH SCREEN MAMMO-MALIGN NEOPLASM OF BRENNA 09/07/2016 Ot I10 ESSENTIAL ( PRIMARY) HYPERTENSION 09/07/2016 Ot I48.0 PAROXYSMAL ATRIAL FIBRILLATION 09/07/2016 Ot I65.23 OCCLUSION AND STENOSIS OF BILATERAL MONTE 09/07/2016 Ot R00.2 PALPITATIONS 09/07/2016 ALON MARIO APRN Ot Z12.31 ENCNTR SCREEN MAMMOGRAM FOR MALIGNANT NE 09/07/2016 CARROLL GUZMAN Ot Z12.31 ENCNTR SCREEN MAMMOGRAM FOR MALIGNANT NE 09/07/2016 CARROLL GUZMAN Ot Z12.31 ENCNTR SCREEN MAMMOGRAM FOR MALIGNANT NE 09/07/2016 GUZMAN, CARROLL M TRANSPORTATION DESIGN ENGINEER Ot Z12.31 ENCNTR SCREEN MAMMOGRAM FOR MALIGNANT NE 09/08/2016 CARROLL GUZMAN TRANSPORTATION DESIGN ENGINEER Ot Z12.31 ENCNTR SCREEN MAMMOGRAM FOR MALIGNANT NE 09/08/2016 CARROLL GUZMAN TRANSPORTATION DESIGN ENGINEER Ot Z12.31 ENCNTR SCREEN MAMMOGRAM FOR MALIGNANT NE 09/08/2016 CARROLL GUZMAN TRANSPORTATION DESIGN ENGINEER Ot Z12.31 ENCNTR SCREEN MAMMOGRAM FOR MALIGNANT NE 09/28/2016 CARROLL GUZMAN TRANSPORTATION DESIGN ENGINEER Ot Z12.31 ENCNTR SCREEN MAMMOGRAM FOR MALIGNANT NE 10/11/2016 BRENDEN BERNSTEIN, CHENTE Middleton Ot R51 HEADACHE 11/03/2016 CHENTE WILCOX MD Ot R51 HEADACHE 10/26/2017 CARROLL GUZMAN TRANSPORTATION DESIGN ENGINEER Ot Z12.31 ENCNTR SCREEN MAMMOGRAM FOR MALIGNANT NE 11/22/2017 CARROLL GUZMAN TRANSPORTATION DESIGN ENGINEER Ot Z12.31 ENCNTR SCREEN MAMMOGRAM FOR MALIGNANT NE 03/07/2018 SAM BERNSTEIN, CODY Lott Ot V72.84 EXAM PRE-OPERATIVE NOS 03/07/2018 EDWIN BERNSTEIN, KEITH Lott Ot V76.12 OTH SCREEN MAMMO-MALIGN NEOPLASM OF BRENNA 03/07/2018 LEONORA OWENS Ot 272.4 HYPERLIPIDEMIA NEC/NOS 03/07/2018 LEONORA OWENS Ot 401.9 HYPERTENSION NOS 03/07/2018 LEONORA OWENS Ot 427.31 ATRIAL FIBRILLATION 03/07/2018 LEONORA OWENS Ot 780.2 SYNCOPE AND COLLAPSE 03/07/2018 KEITH PINEDA MD Ot V76.12 OTH SCREEN MAMMO-MALIGN NEOPLASM OF BRENNA 03/07/2018 Ot I10 ESSENTIAL ( PRIMARY) HYPERTENSION 03/07/2018 Ot I48.0 PAROXYSMAL ATRIAL FIBRILLATION 03/07/2018 Ot I65.23 OCCLUSION AND STENOSIS OF BILATERAL MONTE 03/07/2018 Ot R00.2 PALPITATIONS 03/07/2018 ALON MARIO APRN Ot Z12.31 ENCNTR SCREEN MAMMOGRAM FOR MALIGNANT NE 03/07/2018 CARROLL GUZMAN TRANSPORTATION DESIGN ENGINEER Ot Z12.31 ENCNTR SCREEN MAMMOGRAM FOR MALIGNANT NE 03/07/2018 BRENDEN BERNSTENI, CHENTE A Ot R51 HEADACHE 03/07/2018 THOMAS CARROLL Lott TRANSPORTATION DESIGN ENGINEER Ot Z12.31 ENCNTR SCREEN MAMMOGRAM FOR MALIGNANT NE 03/13/2018 ANGELA REYNA MD Ot E78.5 HYPERLIPIDEMIA, UNSPECIFIED 03/13/2018 ANGELA REYNA MD Ot I08.3 COMB RHEUMATIC DISORD OF MITRAL, AORTIC 03/13/2018 ANGELA REYNA MD Ot I10 ESSENTIAL (PRIMARY) HYPERTENSION 03/13/2018 ANGELA REYNA MD Ot I48.0 PAROXYSMAL ATRIAL FIBRILLATION 03/13/2018 ANGELA REYNA MD Ot R00.2 PALPITATIONS 03/17/2018 ANGELA REYNA MD Ot E78.5 HYPERLIPIDEMIA, UNSPECIFIED 03/17/2018 ANGELA REYNA MD Ot I08.3 COMB RHEUMATIC DISORD OF MITRAL, AORTIC 03/17/2018 ANGELA REYNA MD Ot I10 ESSENTIAL (PRIMARY) HYPERTENSION 03/17/2018 ANGELA REYNA MD Ot I48.0 PAROXYSMAL ATRIAL FIBRILLATION 03/17/2018 ANGELA REYNA MD Ot R00.2 PALPITATIONS 04/02/2018 ANGELA REYNA MD Ot E78.5 HYPERLIPIDEMIA, UNSPECIFIED 04/02/2018 ANGELA REYNA MD Ot I08.3 COMB RHEUMATIC DISORD OF MITRAL, AORTIC 04/02/2018 ANGELA REYNA MD Ot I10 ESSENTIAL (PRIMARY) HYPERTENSION 04/02/2018 ANGELA REYNA MD Ot I48.0 PAROXYSMAL ATRIAL FIBRILLATION 04/02/2018 ANGELA REYNA MD Ot R00.2 PALPITATIONS 04/03/2018 CODY VARGAS MD Ot Z01.818 ENCOUNTER FOR OTHER PREPROCEDURAL EXAMIN 04/04/2018 CODY VARGAS MD Ot Z01.818 ENCOUNTER FOR OTHER PREPROCEDURAL EXAMIN 04/04/2018 CODY VARGAS MD Ot Z01.818 ENCOUNTER FOR OTHER PREPROCEDURAL EXAMIN 04/08/2018 CODY VARGAS MD Ot V72.84 EXAM PRE-OPERATIVE NOS 04/08/2018 EDWIN BERNSTEIN, KEITH Lott Ot V76.12 OTH SCREEN MAMMO-MALIGN NEOPLASM OF BRENNA 04/08/2018 LEONORA OWENS Ot 272.4 HYPERLIPIDEMIA NEC/NOS 04/08/2018 LEONORA OWENS Ot 401.9 HYPERTENSION NOS 04/08/2018 LEONORA OWENS Ot 427.31 ATRIAL FIBRILLATION 04/08/2018 LEONORA OWENS Ot 780.2 SYNCOPE AND COLLAPSE 04/08/2018 EDWIN BERNSTEIN, KEITH Lott Ot V76.12 OTH SCREEN MAMMO-MALIGN NEOPLASM OF BRENNA 04/08/2018 Ot I10 ESSENTIAL ( PRIMARY) HYPERTENSION 04/08/2018 Ot I48.0 PAROXYSMAL ATRIAL FIBRILLATION 04/08/2018 Ot I65.23 OCCLUSION AND STENOSIS OF BILATERAL MONTE 04/08/2018 Ot R00.2 PALPITATIONS 04/08/2018 ALON MARIO APRN Ot Z12.31 ENCNTR SCREEN MAMMOGRAM FOR MALIGNANT NE 04/08/2018 CARROLL GUZMAN Ot Z12.31 ENCNTR SCREEN MAMMOGRAM FOR MALIGNANT NE 04/08/2018 BRENDEN BERNSTEIN, CHENTE Middleton Ot R51 HEADACHE 04/08/2018 CARROLL GUZMAN Ot Z12.31 ENCNTR SCREEN MAMMOGRAM FOR MALIGNANT NE 04/08/2018 ANGELA REYNA MD Ot E78.5 HYPERLIPIDEMIA, UNSPECIFIED 04/08/2018 ANGELA REYNA MD Ot I08.3 COMB RHEUMATIC DISORD OF MITRAL, AORTIC 04/08/2018 ANGELA REYNA MD Ot I10 ESSENTIAL (PRIMARY) HYPERTENSION 04/08/2018 ANGELA REYNA MD Ot I48.0 PAROXYSMAL ATRIAL FIBRILLATION 04/08/2018 ANGELA REYNA MD Ot R00.2 PALPITATIONS Procedures There is no data. Results There is no data. Encounters ACCT No. Visit Date/Time Discharge Status Pt. Type Provider Facility Loc./Unit Complaint [id number] 04/04/2018 08:38:00 04/04/2018 08:48:00 DIS Outpatient CODY VARGAS MD [facility] PREOP COLONOSCOPY [id number] 03/11/2018 09:34:00 03/11/2018 23:59:59 CLS Outpatient ANGELA REYNA MD [facility] CARD CAROTID ARTERY STENOSIS, HTN,PALPITATIONS [id number] 11/02/2017 13:40:00 11/02/2017 23:59:59 CLS Outpatient CARROLL GUZMAN TRANSPORTATION DESIGN ENGINEER [facility] RAD SCREENING [id number] 10/09/2016 13:15:00 10/09/2016 23:59:59 CLS Outpatient CHENTE WILCOX MD [facility] RAD R51 [id number] 09/07/2016 13:01:00 09/07/2016 23:59:59 CLS Outpatient CARROLL GUZMAN TRANSPORTATION DESIGN ENGINEER [facility] RAD SCREENING [id number] 07/20/2015 10:21:00 07/20/2015 23:59:59 CLS Outpatient ALON MARIO APRN [facility] RAD SCREENING [id number] 07/06/2014 09:44:00 07/06/2014 23:59:59 CLS Outpatient KEITH PINEDA MD [facility] RAD SCREENING [id number] 09/15/2013 12:38:00 09/15/2013 23:59:59 CLS Outpatient LEONORA OWENS [facility] CARD CAROTID ARTERY STENOSIS,HTN,HLP [id number] 07/04/2013 13:13:00 07/04/2013 23:59:59 CLS Outpatient KEITH PINEDA MD [facility] RAD SCREENING [id number] 11/04/2012 09:28:00 11/04/2012 12:25:00 DIS Outpatient CODY VARGAS MD [facility] SDC SCREENING; FAMILY HX COLON CANCER [id number] 11/01/2012 08:12:00 11/01/2012 23:59:59 CLS Outpatient CODY VARGAS MD [facility] PREOP SCREENING; FAMILY HX COLON CANCER [id number] 04/08/2018 07:49:00 ACT Outpatient CODY VARGAS MD [facility] ENDO SCREENING/FAMILY HX COLON CANCER [id number] 05/06/2015 09:05:00 Document Registration [id number] 07/12/2012 11:11:00 Document Registration [id number] 06/28/2012 11:02:00 Document Registration [id number] 08/02/2011 11:28:00 Document Registration [id number] 08/01/2011 08:55:00 Document Registration [id number] 06/19/2011 13:15:00 Document Registration [id number] 12/05/2010 05:49:00 Document Registration [id number] 06/15/2010 13:53:00 Document Registration [id number] 04/29/2010 20:30:00 Document Registration [id number] 02/06/2017 18:13:26 02/06/2017 23:59:59 [facility] Outpatient [id number] 07/07/2014 00:39:52 ACT Document Registration
[2018-04-08] MEDS ORDERED: NS IV 500 ML 500 ML IV PRN (07:57)
[2018-04-08 08:00] VITALS: BP 147/86
[2018-04-08] MEDS ORDERED: MIDAZOLAM 2 MG/2 ML (VERSED) VIAL IVP ONE (08:00)
[2018-04-08] MEDS ORDERED: fentaNYL INJECTION 100 MCG/2 ML AMP IVP ONE (08:00)
[2018-04-08] MEDS ORDERED: NS IV 500 ML 500 ML ONE (08:19)
--- NOTE | 2018-04-08 08:55 | History & Physicial ---
History of Present Illness History of Present Illness Reason for visit/HPI to undergo screening colonoscopy. Family history of colon cancer in her father Date of Admission 04/08/18 Date Seen by a Provider: Apr 08, 2018 Time Seen by a Provider: 08:35 I consulted on this patient on 04/08/18 08:52 Attending Physician Cody Waterman MD Admitting Physician Destiny Tobias MD Consult Allergies and Home Medications Allergies Coded Allergies: No Known Allergies (Verified Allergy, Unknown, 10/16/05) Home Medications Apixaban 5 Mg Tablet, 5 MG PO BID, (Reported) Calcium Carbonate 600 Mg Tablet, 600 MG PO BID, (Reported) Cyanocobalamin (Vitamin B-12) 2,500 Mcg Tablet, 2,500 MCG PO DAILY, (Reported) Diltiazem HCl 180 Mg Tab.er.24h, 180 MG PO DAILY, (Reported) Metoprolol Succinate 50 Mg Tab.er.24h, 50 MG PO BID, (Reported) [place] 3 Polyunsat Fatty Acids 1,000 Mg Cap, 1,000 MG PO BID, (Reported) Pravastatin Sodium 20 Mg Tablet, 20 MG PO DAILY, (Reported) Patient Home Medication List Home Medication List Reviewed: Yes Past Fwnjzgu-Ymyyaw-Koxdov Hx Patient Social History Marrital Status: Employed/Student: retired Alcohol Use: Denies Use Recreational Drug Use: No Smoking Status: Never a Smoker Recent Foreign Travel: No Contact w/other who traveled: No Recent Hopitalizations: No Recent Infectious Disease Expo: No Immunizations Up To Date Date of Pneumonia Vaccine: November 05, 2007 Seasonal Allergies Seasonal Allergies: Yes Surgeries Yes Appendectomy, Tonsillectomy Cardiovascular Yes Atrial Fibrillation, Hypertension Reproductive System Hx Reproductive Disorders: No Family Medical History Family Hx: Colon cancer Review of Systems Constitutional: no symptoms reported EENTM: no symptoms reported Respiratory: no symptoms reported Cardiovascular: no symptoms reported Genitourinary: no symptoms reported Musculoskeletal: no symptoms reported Skin: no symptoms reported Psychiatric/Neurological: No Symptoms Reported Physical Exam Vital Signs Vital Signs - First Documented 04/08/18 08:00 Temp 98.0 Pulse 83 Resp 20 B/P (MAP) 147/86 (106) Pulse Ox 95 O2 Delivery Room Air Capillary Refill : Height, Weight, BMI Height: 5'3.00" Weight: 140lbs. 0.0oz. [id number]; 24.8 BMI Method:Stated General Appearance: No Apparent Distress Respiratory: Lungs Clear Cardiovascular: Regular Rate, Rhythm Gastrointestinal: Non Tender, Soft Extremity: Normal Inspection Neurologic/Psychiatric: Alert, Oriented x3 Skin: Warm/Dry Assessment/Plan Assessment and Plan lady with a family history of colon cancer. 4 screening colonoscopy Admission Diagnosis Admission Status: Other (Outpt Proc) CODY WATERMAN MD Apr 08, 2018 08:55
--- NOTE | 2018-04-08 08:55 | Conscious Sedation/ASA ---
Conscious Sedation Pre-Proced Time 08:55 ASA Score 2 For ASA 3 and 4: Consider anesthesia and medical clearance. Also, for patients with a history of failed moderate sedation consider anesthesia. Airway Lungs Heart ASA score ASA 1: a normal healthy patient ASA 2: a patient with a mild systemic disease (mid diabetes, controlled hypertension, obesity ASA 3: a patient with a severe systemic disease that limits activity (angina , COPD, prior Myocardial infarction) ASA 4: a patient with an incapacitating disease that is a constant threat to life (CHF, renal failure) ASA 5: a moribund patient not expected to survive 24 hrs. (ruptured aneurysm) ASA 6: a declared brain patient whose organs are being harvested. For emergent operations, add the letter E after the classification Mallampati Classification Grade 1 Sedation Plan Discussed options with patient/fam The patient is an appropriate candidate to undergo the planned procedure, sedation, and anesthesia. The patient immediately re-assessed prior to indication. CODY VARGAS MD Apr 08, 2018 08:55
[2018-04-08] MEDS ORDERED: MIDAZOLAM 2 MG/2 ML (VERSED) VIAL ONE ×2 (09:00→09:01)
[2018-04-08] MEDS ORDERED: fentaNYL INJECTION 100 MCG/2 ML AMP ONE (09:00)
--- NOTE | 2018-04-08 09:27 | Discharge Inst-Simple/Standard ---
Discharge Inst-Standard Discharge Medications New, Converted or Re-Newed RX: Other Patient Instructions/Follow Up Plan of Care/Instructions/FU: repeat colonoscopy in 5 years Activity as Tolerated: Yes Discharge Diet: No Restrictions CODY VARGAS MD Apr 08, 2018 09:27
--- NOTE | 2018-04-08 09:27 | Endo Procedure Record ---
Endo Procedure Report Date of Procedure Last Colonoscopy: Yes (11/04/2012) Apr 08, 2018 Surgeon (s) CODY VARGAS MD Post Procedure/Op Diagnosis very few sigmoid diverticulae Procedure Performed colonoscopy to cecum Description of Procedure Anesthesia Type: Conscious Sedation Specimen(s) collected/removed None Description of the Procedure Indication for the procedure: This lady, with a family history of colon cancer, came in for screening colonoscopy. Informed consent was obtained after reviewing the procedure in detail. Description of the procedure: She was placed in left lateral rectus position and her vital signs were monitored. Conscious sedation was achieved using Versed and fentanyl. Digital rectal examination was unremarkable. The colonoscope was then introduced into the rectum and advanced with some difficulty around the rectosigmoid junction, to the cecum. The quality of bowel preparation was excellent. The scope was then withdrawn slowly and the mucosa examined in a systematic fashion. Finding: Very few sigmoid diverticulae. She tolerated the procedure well and was taken back to the nursing area in a stable condition. Impression: Screening colonoscopy. Positive family history. No polyps. Recommend repeating in 5 years. Copy Copies To 1: CHENTE WILCOX MD,CODY Lott MD Apr 08, 2018 09:26
[2018-04-08 09:50] VITALS: BP 115/56
[2018-04-08 10:19] VITALS: BP 116/71
[2018-04-08 10:45] VITALS: BP 116/71
== END 2018-04-08 10:50 | disposition home or self-care (01) ==
LOC: ENDO 07:49
PROVIDERS: ATTEND Surgery
DX: Z12.11 Encounter for screening for malignant neoplasm of colon (principal); K57.30 Diverticulosis of large intestine without perforation or abscess without bleeding; Z80.0 Family history of malignant neoplasm of digestive organs; I48.91 Unspecified atrial fibrillation; I10 Essential (primary) hypertension; Z79.899 Other long term (current) drug therapy

== ENCOUNTER 2018-08-03 17:52 | Emergency (ER) | payer MEDICARE, OTHER ==
[~2018-08-03] VITALS: Ht 161.3 cm; Wt 64.9 kg
--- OUTSIDE RECORDS SUMMARY | 2018-08-03 17:59 | XMS REPORT | CCD ---
Author Author Destiny Tobias Organization Destiny Tobias MD, [facility] Address [address] [place] [address] Phone Care Team Providers Care Esl Teacher Name Role Phone PP Unavailable CCM Unavailable Summary Purpose Interface Exchange Insurance Providers Payer name Policy type / Coverage type Covered constitution party ID Effective Begin Date Effective End Date WPS Medicare Part B Medicare Part B [id number] 2018 Unknown [employer] [place] Medicare Part B 006 - [id number] Unknown Family history Father Diagnosis Age At Onset Stroke Unknown Heart Attack Unknown Colon cancer Unknown Mother Diagnosis Age At Onset Hypertension Unknown Stroke Unknown Social History Social History Element Codes Description Effective Dates Marital status Unknown 11/27/2014 Marital status Unknown marlin 11/27/2014 Number of children Unknown 0 11/27/2014 Employment Unknown Retired 11/27/[address]: 981553107 Never smoker 11/27/[address]: 721181406 Never drinks alcohol 11/27/2014 Allergies, Adverse Reactions, [...] Start Date Stop Date Status Fill Instructions famotidine 20 mg tablet RxNorm: 860691 TAKE 1 TABLET TWICE A DAY 06/04/2018 05/29/2019 Active diltiazem CD 180 mg capsule,extended release 24 hr RxNorm: 969767 TAKE 1 CAPSULE DAILY 06/04/2018 05/29/2019 Active metoprolol tartrate 50 mg tablet RxNorm: 334150 TAKE 1 TABLET TWICE A DAY 06/04/2018 05/29/2019 Active acyclovir 400 mg tablet RxNorm: 747998 2 Tablet(s) PO QID 09/2009/29/2017 Inactive pravastatin 20 mg tablet RxNorm: 355857 Tablet(s) TAKE 1 TABLET EVERY DAY 09/14/2017 12/07/2018 Active metoprolol tartrate 50 mg tablet RxNorm: 298181 1 Tablet(s) PO BID 06/19/2017 06/04/2018 Inactive famotidine 20 mg tablet RxNorm: 717713 1 Tablet(s) PO BID 06/1906/03/2018 Inactive diltiazem CD 180 mg capsule,extended release 24 hr RxNorm: 659726 Capsule(s) TAKE 1 CAPSULE EVERY DAY 06/19/2017 06/03/2018 Inactive omeprazole 20 mg capsule,delayed release RxNorm: 070223 1 Capsule(s) PO daily as needed acid reflux not controlled by pepcid 02/06/2017 05/01/2018 Inactive Eliquis 5 mg tablet RxNorm: 4418799 1 Tablet(s) PO BID 201603/07/2017 Inactive pravastatin 20 mg tablet RxNorm: 110054 TAKE 1 TABLET EVERY DAY 11/30/2016 09/13/2017 Inactive diltiazem CD 180 mg capsule,extended release 24 hr RxNorm: 475007 TAKE 1 CAPSULE EVERY DAY 10/30/2016 06/18/2017 Inactive Kenalog 40 mg/mL suspension for injection RxNorm: 0110342 1 Milliliter(s) Inj 10/05/2016 10/05/2016 Inactive metoprolol tartrate 50 mg tablet RxNorm: 812641 1 Tablet(s) PO BID 10/05/2016 06/18/2017 Inactive metoprolol tartrate 100 mg tablet RxNorm: 609079 1 Tablet(s) PO daily 02/25/2016 10/04/2016 Inactive warfarin 5 mg tablet RxNorm: 889671 1 Tablet(s) PO daily 201507/12/2016 Inactive pravastatin 20 mg tablet RxNorm: 316971 1 Tablet(s) PO daily 11/29/2016 Inactive diltiazem CD 180 mg capsule,extended release 24 hr RxNorm: 324147 1 Capsule(s) PO daily 12/08/2015 10/29/2016 Inactive metronidazole 0.75 % topical cream RxNorm: 049283 apply topically at bedtime to clean skin TOP 12/22/2014 12/21/2014 Inactive metronidazole 0.75 % topical cream RxNorm: 920188 apply topically at bedtime to clean skin TOP 12/22/2014 03/21/2015 Inactive metoprolol tartrate 100 mg tablet RxNorm: 582673 1 Tablet(s) PO daily 11/27/2014 11/21/2015 Inactive warfarin 5 mg tablet RxNorm: 027943 1 Tablet(s) PO daily 201411/21/2015 Inactive diltiazem CD 180 mg capsule,extended release 24 hr RxNorm: 259224 1 Capsule(s) PO daily 11/27/2014 11/21/2015 Inactive aspirin 81 mg tablet RxNorm: 134968 1 Tablet(s) PO daily No Start Date Active Oystercal-D oral RxNorm: 702293 oral No Start Date Active Fish Oil 1,000 mg capsule RxNorm: 1 Capsule(s) PO daily No Start Date Active Vitamin D3 2,000 unit capsule RxNorm: 653824 1 Capsule(s) PO daily No Start Date Active B-12 DOTS oral RxNorm : 72754 oral No Start Date Active Eliquis 5 mg tablet RxNorm: 4415662 1 Tablet(s) PO BID No Start Date Active diltiazem CD 180 mg capsule,extended release 24 hr RxNorm: 584957 1 Capsule(s) PO daily No Start Date 11/26/2014 Inactive warfarin 5 mg tablet RxNorm: 962083 1 1/2 Tablet(s) PO daily No Start Date 11/26/2014 Inactive warfarin 5 mg tablet RxNorm: 917517 1 Tablet(s) PO daily No Start Date 11/26/2014 Inactive pravastatin 20 mg tablet RxNorm: 612882 1 Tablet(s) PO daily No Start Date 12/13/2015 Inactive famotidine 20 mg tablet RxNorm: 228569 1 Tablet(s) PO BID No Start Date 06/18/2017 Inactive metoprolol tartrate 100 mg tablet RxNorm: 951386 1 Tablet(s) PO daily No Start Date 11/26/2014 Inactive Medication Administered Medication Codes Instructions Start Date Status Kenalog 40 mg/mL suspension for injection RxNorm: 5635037 1Milliliter 10/05/2016 No longer Active Immunizations Vaccine Codes Date Status Influenza CVX: 141 04/10/2018 completed Influenza CVX: 141 04/06/2017 completed Influenza CVX: [...] BILI I 0.3 mg/dL 08/10/2017 Comp Metabolic Wxa374 NA 142 mEq/L 08/10/2017 Comp Metabolic Siz019 K 4.1 mEq/L 08/10/2017 Comp Metabolic Omb998 CL 105 mEq/L 08/10/2017 Comp Metabolic Rtd874 CO2 29.0 mEq/L 08/10/2017 Comp Metabolic Emx638 ANION GAP 12 08/10/2017 Comp Metabolic Lwm155 GLUCOSE 100 mg/dL 08/10/2017 Comp Metabolic Krq206 Creat 1.0 mg/dL 08/10/2017 Comp Metabolic Esj327 eGFR 55 ml/min/1.73m2 08/10/2017 Comp Metabolic Ylp411 BUN 17 mg/dL 08/10/2017 Comp Metabolic Dzj545 B/C Ratio 16.5 Ratio 08/10/2017 Comp Metabolic Zja240 CALCIUM 10.0 mg/dL 08/10/2017 Comp Metabolic Pgp016 ALK PHOS 75 U/L 08/10/2017 Comp Metabolic Lzs433 AST(SGOT) 20 U/L 08/10/2017 Comp Metabolic Wld655 ALT(SGPT) 19 U/L 08/10/2017 Comp Metabolic Slv750 BILI T 0.4 mg/dL 08/10/2017 Comp Metabolic Zbm911 ALBUMIN 4.3 g/dL 08/10/2017 Comp Metabolic Wqr623 TPRO 6.7 g/dL 08/10/2017 Comp Metabolic Mue698 GLOB 2.4 g/dL 08/10/2017 Comp Metabolic Euk290 A/G Ratio 1.8 Ratio 08/10/2017 Comp Metabolic Itp093 Osmo 285 mOsmo 08/10/2017 Cbc With Differential Ord2 WBC 6.58 K/ul 08/10/2017 Cbc With Differential Ord2 RBC 4.84 M/ul 08/10/2017 Cbc With Differential Ord2 HGB 14.5 g/dl 08/10/2017 Cbc With Differential Ord2 Neut% 42.5 % 08/10/2017 Cbc With Differential Ord2 HCT 42.4 % 08/10/2017 Cbc With Differential Ord2 Lymph% 45.3 % 08/10/2017 Cbc With Differential Ord2 MCV 87.6 fl 08/10/2017 Cbc With Differential Ord2 MCH 30.0 pg 08/10/2017 Cbc With Differential Ord2 [place]% 9.3 % 08/10/2017 Cbc With Differential Ord2 Eos% 2.4 % 08/10/2017 Cbc With Differential Ord2 MCHC 34.2 pg 08/10/2017 Cbc With Differential Ord2 Baso% 0.5 % 08/10/2017 Cbc With Differential Ord2 PLT 222 K/ul 08/10/2017 Cbc With Differential Ord2 RDW 13.4 % 08/10/2017 Cbc With Differential Ord2 Neut ABS# 2.80 K/ul 08/10/2017 Cbc With Differential Ord2 Lymph ABS# 2.98 K/ul 08/10/2017 Cbc With Differential Ord2 [place] ABS# 0.6 K/ul 08/10/2017 Cbc With Differential Ord2 Eos ABS# 0.2 K/ul 08/10/2017 Cbc With Differential Ord2 Baso ABS# 0.0 K/ul 08/10/2017 Comp Metabolic Wjv688 NA 142 mEq/L 12/26/2016 Comp Metabolic Bqb728 K 4.3 mEq/L 12/26/2016 Comp Metabolic Qnq684 CL 106 mEq/L 12/26/2016 Comp Metabolic Ggl222 CO2 29.0 mEq/L 12/26/2016 Comp Metabolic Exz375 ANION GAP 11 12/26/2016 Comp Metabolic Xxh466 GLUCOSE 95 mg/dL 12/26/2016 Comp Metabolic Hjf510 Creat 1.0 mg/dL 12/26/2016 Comp Metabolic Khr276 eGFR 58 ml/min/1.73m2 12/26/2016 Comp Metabolic Wiv159 BUN 18 mg/dL 12/26/2016 Comp Metabolic Rkv118 B/C Ratio 18.4 Ratio 12/26/2016 Comp Metabolic Gtb622 CALCIUM 9.4 mg/dL 12/26/2016 Comp Metabolic Xop197 ALK PHOS 60 U/L 12/26/2016 Comp Metabolic Jfa069 AST(SGOT) 22 U/L 12/26/2016 Comp Metabolic Vlh579 ALT(SGPT) 24 U/L 12/26/2016 Comp Metabolic Qqw079 BILI T 0.4 mg/dL 12/26/2016 Comp Metabolic Sev275 ALBUMIN 4.0 g/dL 12/26/2016 Comp Metabolic Bog562 TPRO 6.1 g/dL 12/26/2016 Comp Metabolic Zoj997 GLOB 2.1 g/dL 12/26/2016 Comp Metabolic Ctd462 A/G Ratio 1.9 Ratio 12/26/2016 Comp Metabolic Rbo867 Osmo 285 mOsmo 12/26/2016 Lipid Ord30 CHOL 187 mg/dL 12/26/2016 Lipid Ord30 HDL 66.0 mg/dl 12/26/2016 Lipid Ord30 TRIG 88 mg/dL 12/26/2016 Lipid Ord30 LDL 103 mg/dL 12/26/2016 Lipid Ord30 C/HDL 2.8 Ratio 12/26/2016 Cbc With Differential Ord2 WBC 6.29 K/ul 12/26/2016 Cbc With Differential Ord2 RBC 4.56 M/ul 12/26/2016 Cbc With Differential Ord2 HGB 14.0 g/dl 12/26/2016 Cbc With Differential Ord2 HCT 40.2 % 12/26/2016 Cbc With Differential Ord2 Neut% 50.6 % 12/26/2016 Cbc With Differential Ord2 MCV 88.2 fl 12/26/2016 Cbc With Differential Ord2 Lymph% 38.6 % 12/26/2016 Cbc With Differential Ord2 [place]% 8.6 % 12/26/2016 Cbc With Differential Ord2 MCH 30.7 pg 12/26/2016 Cbc With Differential Ord2 MCHC 34.8 pg 12/26/2016 Cbc With Differential Ord2 Eos% 1.9 % 12/26/2016 Cbc With Differential Ord2 PLT 237 K/ul 12/26/2016 Cbc With Differential Ord2 Baso% 0.3 % 12/26/2016 Cbc With Differential Ord2 Neut ABS# 3.18 K/ul 12/26/2016 Cbc With Differential Ord2 RDW 13.8 % 12/26/2016 Cbc With Differential Ord2 Lymph ABS# 2.43 K/ul 12/26/2016 Cbc With Differential Ord2 [place] ABS# 0.5 K/ul 12/26/2016 Cbc With Differential Ord2 Eos ABS# 0.1 K/ul 12/26/2016 Cbc With Differential Ord2 Baso ABS# 0.0 K/ul 12/26/2016 Tsh Ord6 hTSH II 1.18 uIU/mL 12/26/2016 Pt Goq1422 PT 22.1 seconds 06/27/2016 Pt Gze2469 INR 2.0 06/27/2016 Pt Zpq0818 Low Intensity - 1.5-2.0 06/27/2016 Pt Wti1420 Mod intensity - 2.0-3.0 06/27/2016 Pt Qey0888 Hi intensity - 3.0-4.0 06/27/2016 Cbc With Differential Ord2 WBC 6.09 K/ul 06/27/2016 Cbc With Differential Ord2 RBC 4.51 M/ul 06/27/2016 Cbc With Differential Ord2 HGB 13.7 g/dl 06/27/2016 Cbc With Differential Ord2 HCT 39.4 % 06/27/2016 Cbc With Differential Ord2 Neut% 51.9 % 06/27/2016 Cbc With Differential Ord2 MCV 87.4 fl 06/27/2016 Cbc With Differential Ord2 Lymph% 36.0 % 06/27/2016 Cbc With Differential Ord2 MCH 30.4 pg 06/27/2016 Cbc With Differential Ord2 [place]% 8.4 % 06/27/2016 Cbc With Differential Ord2 [...] 2.19 K/ul 06/27/2016 Cbc With Differential Ord2 [place] ABS# 0.5 K/ul 06/27/2016 Cbc With Differential Ord2 Eos ABS# 0.2 K/ul 06/27/2016 Cbc With Differential Ord2 Baso ABS# 0.0 K/ul 06/27/2016 Comp Metabolic Ifz338 NA 137 mEq/L 06/27/2016 Comp Metabolic Lzy106 K 4.4 mEq/L 06/27/2016 Comp Metabolic Wit201 CL 105 mEq/L 06/27/2016 Comp Metabolic Nxj636 CO2 27.0 mEq/L 06/27/2016 Comp Metabolic Oee152 ANION GAP 9 06/27/2016 Comp Metabolic Tmk198 GLUCOSE 92 mg/dL 06/27/2016 Comp Metabolic Rwx435 Creat 0.9 mg/dL 06/27/2016 Comp Metabolic Tny584 eGFR 61 ml/min/1.73m2 06/27/2016 Comp Metabolic Ndl267 BUN 20 mg/dL 06/27/2016 Comp Metabolic Mky945 B/C Ratio 21.3 Ratio 06/27/2016 Comp Metabolic Yuo261 CALCIUM 9.5 mg/dL 06/27/2016 Comp Metabolic Nks987 ALK PHOS 72 U/L 06/27/2016 Comp Metabolic Ylm788 AST(SGOT) 20 U/L 06/27/2016 Comp Metabolic Qfd768 ALT(SGPT) 18 U/L 06/27/2016 Comp Metabolic Jvz631 BILI T 0.4 mg/dL 06/27/2016 Comp Metabolic Ona071 ALBUMIN 4.1 g/dL 06/27/2016 Comp Metabolic Wfl660 TPRO 6.5 g/dL 06/27/2016 Comp Metabolic Nrc467 GLOB 2.4 g/dL 06/27/2016 Comp Metabolic Swl036 A/G Ratio 1.7 Ratio 06/27/2016 Comp Metabolic Hek544 Osmo 276 mOsmo 06/27/2016 Lipid Ord30 CHOL 179 mg/dL 06/27/2016 Lipid Ord30 HDL 54.0 mg/dl 06/27/2016 Lipid Ord30 TRIG 118 mg/dL 06/27/2016 Lipid Ord30 LDL 101 mg/dL 06/27/2016 Lipid Ord30 C/HDL 3.3 Ratio 06/27/2016 Tsh Ord6 hTSH II 1.15 uIU/mL 06/27/2016 Pt Ufw1184 PT 25.2 seconds 05/22/2016 Pt Zhd2496 INR 2.4 05/22/2016 Pt Qkk8829 Low Intensity - 1.5-2.0 05/22/2016 Pt Tnp2295 Mod intensity - 2.0-3.0 05/22/2016 Pt Mmn8516 Hi intensity - 3.0-4.0 05/22/2016 Pt Hff3219 PT 26.8 seconds 04/24/2016 Pt Nvs0399 INR 2.6 04/24/2016 Pt Zrp7344 Low Intensity - 1.5-2.0 04/24/2016 Pt Udn5947 Mod intensity - 2.0-3.0 04/24/2016 Pt Jzt7151 Hi intensity - 3.0-4.0 04/24/2016 Pt Hke4500 PT 24.6 seconds 03/27/2016 Pt Fnh4738 INR 2.4 03/27/2016 Pt Vwo3707 Low Intensity - 1.5-2.0 03/27/2016 Pt Rvb6587 Mod intensity - 2.0-3.0 03/27/2016 Pt Kjn5441 Hi intensity - 3.0-4.0 03/27/2016 Pt Rbm8787 PT 23.6 seconds 02/28/2016 Pt Ebh1731 INR 2.2 02/28/2016 Pt Krh5711 Low Intensity - 1.5-2.0 02/28/2016 Pt Qxu8685 Mod intensity - 2.0-3.0 02/28/2016 Pt Xat2644 Hi intensity - 3.0-4.0 02/28/2016 Pt Xlu0207 PT 27.3 seconds 01/31/2016 Pt Qlk6049 INR 2.7 01/31/2016 Pt Egc7583 Low Intensity - 1.5-2.0 01/31/2016 Pt Ofr6945 Mod intensity - 2.0-3.0 01/31/2016 Pt Thi3544 Hi intensity - 3.0-4.0 01/31/2016 Lipid Ord30 CHOL 166 mg/dL 01/03/2016 Lipid Ord30 HDL 47.0 mg/dl 01/03/2016 Lipid Ord30 TRIG 120 mg/dL 01/03/2016 Lipid Ord30 LDL 95 mg/dL 01/03/2016 Lipid Ord30 C/HDL 3.5 Ratio 01/03/2016 Tsh Ord6 hTSH II 0.93 uIU/mL 01/03/2016 Comp Metabolic Hdk015 NA 139 mEq/L 01/03/2016 Comp Metabolic Bjn322 K 4.1 mEq/L 01/03/2016 Comp Metabolic Eor632 CL 107 mEq/L 01/03/2016 Comp Metabolic Cjt792 CO2 26.0 mEq/L 01/03/2016 Comp Metabolic Chf127 ANION GAP 10 01/03/2016 Comp Metabolic Rpl489 GLUCOSE 94 mg/dL 01/03/2016 Comp Metabolic Fja510 Creat 0.9 mg/dL 01/03/2016 Comp Metabolic Mvn731 eGFR 63 ml/min/1.73m2 01/03/2016 Comp Metabolic Slk379 BUN 18 mg/dL 01/03/2016 Comp Metabolic Jcj001 B/C Ratio 19.6 Ratio 01/03/2016 Comp Metabolic Mfb958 CALCIUM 8.6 mg/dL 01/03/2016 Comp Metabolic Yov751 ALK PHOS 66 U/L 01/03/2016 Comp Metabolic Txw764 AST(SGOT) 21 U/L 01/03/2016 Comp Metabolic Kbg767 ALT(SGPT) 19 U/L 01/03/2016 Comp Metabolic Tgs565 BILI T 0.4 mg/dL 01/03/2016 Comp Metabolic Bxo156 ALBUMIN 4.0 g/dL 01/03/2016 Comp Metabolic Xjj585 TPRO 6.3 g/dL 01/03/2016 Comp Metabolic Zgi559 GLOB 2.3 g/dL 01/03/2016 Comp Metabolic Qwy831 A/G Ratio 1.7 Ratio 01/03/2016 Comp Metabolic Qdn477 Osmo 279 mOsmo 01/03/2016 Cbc With Differential Ord2 WBC 5.97 K/ul 01/03/2016 Cbc With Differential Ord2 RBC 4.52 M/ul 01/03/2016 Cbc With Differential Ord2 HGB 13.7 g/dl 01/03/2016 Cbc With Differential Ord2 HCT 39.5 % 01/03/2016 Cbc With Differential Ord2 Neut% 39.4 % 01/03/2016 Cbc With Differential Ord2 MCV 87.4 fl 01/03/2016 Cbc With Differential Ord2 Lymph% 46.2 % 01/03/2016 Cbc With Differential Ord2 MCH 30.3 pg 01/03/2016 Cbc With Differential Ord2 [place]% 9.7 % 01/03/2016 Cbc With Differential Ord2 MCHC 34.7 pg 01/03/2016 Cbc With Differential Ord2 Eos% 4.4 % 01/03/2016 Cbc With Differential Ord2 Baso% 0.3 % 01/03/2016 Cbc With Differential Ord2 PLT 214 K/ul 01/03/2016 Cbc With Differential Ord2 RDW 13.4 % 01/03/2016 Cbc With Differential Ord2 Neut ABS# 2.35 K/ul 01/03/2016 Cbc With Differential Ord2 Lymph ABS# 2.76 K/ul 01/03/2016 Cbc With Differential Ord2 [place] ABS# 0.6 K/ul 01/03/2016 Cbc With Differential Ord2 Eos ABS# 0.3 K/ul 01/03/2016 Cbc With Differential Ord2 Baso ABS# 0.0 K/ul 01/03/2016 Pt Xex9747 PT 24.3 seconds 01/03/2016 Pt Yrw9911 INR 2.3 01/03/2016 Pt Cvr7833 Low Intensity - 1.5-2.0 01/03/2016 Pt Xbv5200 Mod intensity - 2.0-3.0 01/03/2016 Pt Ipy0840 Hi intensity - 3.0-4.0 01/03/2016 Pt Pan1578 PT 22.0 seconds 12/09/2015 Pt Edf9442 INR 2.1 12/09/2015 Pt Iov9452 Low Intensity - 1.5-2.0 12/09/2015 Pt Boo7486 Mod intensity - 2.0-3.0 12/09/2015 Pt Ibg1265 Hi intensity - 3.0-4.0 12/09/2015 Pt Mvo2031 PT 22.2 seconds 11/11/2015 Pt Zcf8440 INR 2.1 11/11/2015 Pt Fqd8678 Low Intensity - 1.5-2.0 11/11/2015 Pt Kcp0374 Mod intensity - 2.0-3.0 11/11/2015 Pt Yey6384 Hi intensity - 3.0-4.0 11/11/2015 Pt Dfb4087 PT 20.7 seconds 11/04/2015 Pt Faw2919 INR 1.9 11/04/2015 Pt Mcw5885 Low Intensity - 1.5-2.0 11/04/2015 Pt Cvk7921 Mod intensity - 2.0-3.0 11/04/2015 Pt Gzl1412 Hi intensity - 3.0-4.0 11/04/2015 Pt Ota7914 PT 24.6 seconds 10/07/2015 Pt Kod4709 INR 2.4 10/07/2015 Pt Kuk9808 Low Intensity - 1.5-2.0 10/07/2015 Pt Vdf8239 Mod intensity - 2.0-3.0 10/07/2015 Pt Xsa2437 Hi intensity - 3.0-4.0 10/07/2015 Pt Rbt5753 PT 21.2 seconds 09/22/2015 Pt Khd8277 INR 1.9 09/22/2015 Pt Pva9554 Low Intensity - 1.5-2.0 09/22/2015 Pt Lsg6679 Mod intensity - 2.0-3.0 09/22/2015 Pt Rep2414 Hi intensity - 3.0-4.0 09/22/2015 Pt Vee6978 PT 20.7 seconds 09/15/2015 Pt Dip6400 INR 1.8 09/15/2015 Pt Yaw5894 Low Intensity - 1.5-2.0 09/15/2015 Pt Tdr9178 Mod intensity - 2.0-3.0 09/15/2015 Pt Lgq5278 Hi intensity - 3.0-4.0 09/15/2015 Pt Mau5060 PT 17.2 seconds 09/08/2015 Pt Yrq9283 INR 1.5 09/08/2015 Pt Der4931 Low Intensity - 1.5-2.0 09/08/2015 Pt Bpd7430 Mod intensity - 2.0-3.0 09/08/2015 Pt Zuz5560 Hi intensity - 3.0-4.0 09/08/2015 Pt Pha6820 PT 22.4 seconds 08/10/2015 Pt Bdg1264 INR 2.0 08/10/2015 Pt Hes6941 Low Intensity - 1.5-2.0 08/10/2015 Pt Nxa7052 Mod intensity - 2.0-3.0 08/10/2015 Pt Bbp4216 Hi intensity - 3.0-4.0 08/10/2015 Pt Xdw3728 PT 22.4 seconds 07/13/2015 Pt Fbp0819 INR 2.0 07/13/2015 Pt Evh0706 Low Intensity - 1.5-2.0 07/13/2015 Pt Yof1735 Mod intensity - 2.0-3.0 07/13/2015 Pt Oyg0872 Hi intensity - 3.0-4.0 07/13/2015 Cbc With Differential Ord2 WBC 6.90 K/ul 07/05/2015 Cbc With Differential Ord2 RBC 4.63 M/ul 07/05/2015 Cbc With Differential Ord2 HGB 13.6 g/dl 07/05/2015 Cbc With Differential Ord2 Neut% 48.2 % 07/05/2015 Cbc With Differential Ord2 HCT 40.3 % 07/05/2015 Cbc With Differential Ord2 Lymph% 39.4 % 07/05/2015 Cbc With Differential Ord2 MCV 87.0 fl 07/05/2015 Cbc With Differential Ord2 [place]% 8.7 % 07/05/2015 Cbc With Differential Ord2 [...] 2.72 K/ul 07/05/2015 Cbc With Differential Ord2 [place] ABS# 0.6 K/ul 07/05/2015 Cbc With Differential Ord2 Eos ABS# 0.3 K/ul 07/05/2015 Cbc With Differential Ord2 Baso ABS# 0.0 K/ul 07/05/2015 Cbc With Differential Ord2 New Analyzer Notice Please note new ref ranges starting 06-30-2015 due to implemntation of new five part differential hematolgy analyzer. 07/05/2015 Tsh Ord6 hTSH II 1.18 uIU/mL 07/05/2015 Pt Hue2590 PT 18.6 seconds 07/05/2015 Pt Cgy8798 INR 1.6 07/05/2015 Pt Giz6125 Low Intensity - 1.5-2.0 07/05/2015 Pt Pue2119 Mod intensity - 2.0-3.0 07/05/2015 Pt Cqg7848 Hi intensity - 3.0-4.0 07/05/2015 Lipid Ord30 CHOL 173 mg/dL 07/05/2015 Lipid Ord30 HDL 53.0 mg/dl 07/05/2015 Lipid Ord30 TRIG 156 mg/dL 07/05/2015 Lipid Ord30 LDL 89 mg/dL 07/05/2015 Lipid Ord30 C/HDL 3.3 Ratio 07/05/2015 Comp Metabolic Uko220 NA 139 mEq/L 07/05/2015 Comp Metabolic Nqq732 K 4.4 mEq/L 07/05/2015 Comp Metabolic Eux299 CL 105 mEq/L 07/05/2015 Comp Metabolic Myg476 CO2 27.0 mEq/L 07/05/2015 Comp Metabolic Qpc821 ANION GAP 11 07/05/2015 Comp Metabolic Dym556 GLUCOSE 91 mg/dL 07/05/2015 Comp Metabolic Ixr648 Creat 1.0 mg/dL 07/05/2015 Comp Metabolic Qnf345 eGFR 61 ml/min/1.73m2 07/05/2015 Comp Metabolic Goh200 BUN 19 mg/dL 07/05/2015 Comp Metabolic Iub065 B/C Ratio 20.0 Ratio 07/05/2015 Comp Metabolic Loc544 CALCIUM 9.4 mg/dL 07/05/2015 Comp Metabolic Dwr563 ALK PHOS 70 U/L 07/05/2015 Comp Metabolic Brc755 AST(SGOT) 21 U/L 07/05/2015 Comp Metabolic Tte236 ALT(SGPT) 18 U/L 07/05/2015 Comp Metabolic Uhl497 BILI T 0.4 mg/dL 07/05/2015 Comp Metabolic Bku306 ALBUMIN 4.1 g/dL 07/05/2015 Comp Metabolic Zac117 TPRO 6.5 g/dL 07/05/2015 Comp Metabolic Xme912 GLOB 2.4 g/dL 07/05/2015 Comp Metabolic Gzv372 A/G Ratio 1.7 Ratio 07/05/2015 Comp Metabolic Lzh389 Osmo 279 mOsmo 07/05/2015 Pt Ekg2410 PT 24.7 seconds 06/04/2015 Pt Xoy9095 INR 2.3 06/04/2015 Pt Ana2362 Low Intensity - 1.5-2.0 06/04/2015 Pt Yri5807 Mod intensity - 2.0-3.0 06/04/2015 Pt Tbl4260 Hi intensity - 3.0-4.0 06/04/2015 Pt Yxw3601 PT 23.6 seconds 05/07/2015 Pt Zwq4950 INR 2.2 05/07/2015 Pt Fyd6884 Low Intensity - 1.5-2.0 05/07/2015 Pt Fqk7242 Mod intensity - 2.0-3.0 05/07/2015 Pt Ujd3266 Hi intensity - 3.0-4.0 05/07/2015 Pt Oce3644 PT 23.6 seconds 04/09/2015 Pt Vyo0404 INR 2.2 04/09/2015 Pt Oqd5970 Low Intensity - 1.5-2.0 04/09/2015 Pt Gdx8403 Mod intensity - 2.0-3.0 04/09/2015 Pt Bcq8900 Hi intensity - 3.0-4.0 04/09/2015 Pt Oso1075 PT 23.7 seconds 03/11/2015 Pt Cor4634 INR 2.2 03/11/2015 Pt Rxm3455 Low Intensity - 1.5-2.0 03/11/2015 Pt Mpp1530 Mod intensity - 2.0-3.0 03/11/2015 Pt Gpg0069 Hi intensity - 3.0-4.0 03/11/2015 Pt Esl5818 PT 24.8 seconds 01/28/2015 Pt Jdw9464 INR 2.3 01/28/2015 Pt Efv6323 Low Intensity - 1.5-2.0 01/28/2015 Pt Upl8000 Mod intensity - 2.0-3.0 01/28/2015 Pt Iat0764 Hi intensity - 3.0-4.0 01/28/2015 Review of [...] clear 08/13/2017 None Full Exam - General 1995 Ears/Nose/Throat otoscopic exam Overall: tympanic membranes clear [...] Procedure Codes Date THER/PROPH/DIAG INJ SC/IM CPT-4: 12735 10/05/2016 TRIAMCINOLONE ACET INJ NOS CPT-4: J3301 10/05/2016 Vital Signs Date Vital 02/04/2018 Blood Pressure 1: 144/70 Code : 8480-6 BMI: 24.9 Code : 85182-1 Heart Rate 1 : 64 bpm Height: 5'3" SpO2: 98% Weight: 143 lbs 09/20/2017 Blood Pressure 1: 132/70 Code : 8480-6 BMI: 25.3 Code : 96006-1 Heart Rate 1 : 69 bpm Height: 5'3" SpO2: 95% Weight: 145 lbs 08/13/2017 Blood Pressure 1: 140/80 Code : 8480-6 BMI: 24.9 Code : 36913-9 Heart Rate 1 : 65 bpm Height: 5'3" SpO2: 98% Weight: 143 lbs 02/06/2017 Blood Pressure 1: 124/76 Code : 8480-6 BMI: 25.1 Code : 18399-0 Heart Rate 1 : 67 bpm Height: 5'3" SpO2: 97% Weight: 144 lbs 10/17/2016 Blood Pressure 1: 140/78 Code : 8480-6 Heart Rate 1: 55 bpm Height: 5'3" SpO2: 98% Weight: 10/05/2016 Blood Pressure 1: 150/82 Code : 8480-6 BMI: 24.9 Code : 57492-6 Heart Rate 1 : 70 bpm Height: 5'3" SpO2: 97% Weight: 143 lbs 06/01/2016 Blood Pressure 1: 128/70 Code : 8480-6 BMI: 24.9 Code : 69807-3 Heart Rate 1 : 68 bpm Height: 5'3" SpO2: 98% Weight: 143 lbs 12/02/2015 Blood Pressure 1: 138/78 Code : 8480-6 BMI: 24.9 Code : 30133-7 Heart Rate 1 : 69 bpm Height: 5'3" SpO2: 97% Weight: 143 lbs 05/27/2015 Blood Pressure 1: 118/68 Code : 8480-6 BMI: 24.8 Code : 92066-0 Heart Rate 1 : 60 bpm Height: 5'3" SpO2: 98% Weight: 142 lbs 11/27/2014 Blood Pressure 1: 154/82 Code : 8480-6 BMI: 25.1 Code : 71129-8 Heart Rate 1 : 64 bpm Height: [...] Directive data Encounters Encounter Performer Location Codes ([id number]) [id number] EST. PATIENT, LEVEL IV Diagnosis: Essential (primary) hypertension[ICD10: I10] Diagnosis: Mixed hyperlipidemia[ICD10: E78.2] Diagnosis: Chronic atrial fibrillation[ICD10: I48.2] Diagnosis: Low back pain[ICD10: M54.5] Destiny Tobias MD [facility] CPT- 4: 83450 02/04/2018 [id number] EST. PATIENT, LEVEL II Diagnosis: Zoster without complications[ICD10: B02.9] Danette Marck Tobias MD [facility] CPT-4: 45282 09/20/2017 ([id number]) [id number] EST. PATIENT, LEVEL IV Diagnosis: Essential (primary) hypertension[ICD10: I10] Diagnosis: Mixed hyperlipidemia[ICD10: E78.2] Diagnosis: Chronic atrial fibrillation[ICD10: I48.2] Destiny Tobias MD [facility] CPT-4: 21129 08/13/2017 ([id number]) 05723 EST. PATIENT, LEVEL IV Diagnosis: Essential (primary) hypertension[ICD10: I10] Diagnosis: Mixed hyperlipidemia[ICD10: E78.2] Diagnosis: Chronic atrial fibrillation[ICD10: I48.2] Diagnosis: Gastro-esophageal reflux disease without esophagitis[ICD10: K21.9] Destiny Tobias MD [facility] CPT-4: 66926 02/06/2017 ([id number]) 56874 EST. PATIENT, LEVEL IV Diagnosis: Essential (primary) hypertension[ICD10: I10] Diagnosis: Headache[ICD10: R51] Destiny Tobias MD [facility] CPT-4: 79766 10/17/2016 ([id number]) 20718 EST. PATIENT, LEVEL IV Diagnosis: Headache[ICD10: R51] Diagnosis: Essential (primary) hypertension[ICD10: I10] Diagnosis: Mixed hyperlipidemia[ICD10: E78.2] Diagnosis: Chronic atrial fibrillation[ICD10: I48.2] Diagnosis: Other allergic rhinitis[ICD10: J30.89] Destiny Tobias MD, [facility] CPT-4: 43550 10/05/2016 ([id number]) 41350 EST. PATIENT, LEVEL IV Diagnosis: Essential (primary) hypertension[ICD10: I10] Diagnosis: Mixed hyperlipidemia[ICD10: E78.2] Diagnosis: Chronic atrial fibrillation[ICD10: I48.2] Destiny Tobias MD [facility] CPT-4: 10335 06/01/2016 ([id number]) 76052 EST. PATIENT, LEVEL IV Diagnosis: Essential (primary) hypertension[ICD10: I10] Diagnosis: Chronic atrial fibrillation[ICD10: I48.2] Diagnosis: Mixed hyperlipidemia[ICD10: E78.2] Destiny Tobias MD, [facility] CPT-4: 95039 12/02/2015 ([id number]) [id number] EST. PATIENT, LEVEL IV Diagnosis: Essential (primary) hypertension[ICD10: I10] Diagnosis: Chronic atrial fibrillation[ICD10: I48.2] Diagnosis: Mixed hyperlipidemia[ICD10: E78.2] Destiny Tobias MD, [facility] CPT-4: 31256 05/27/2015 ([id number]) OFFICE VISIT, NEW - LEVEL 4 Diagnosis: ESSENTIAL HYPERTENSION[ICD9: 401.9] Diagnosis: HYPERLIPIDEMIA[ICD9: 272.4] Diagnosis: ATRIAL FIBRILLATION[ICD9: 427.31] Destiny Tobias MD, [facility] CPT-4: 11014 11/27/2014 Plan of Care Planned Activity Notes [...] rate controlled - continue current regimen 02/04/2018 Appointment: Destiny Tobias WPtel: [address] [place], [place] [id number] (15 min) Moderate 02/04/2018 Patient Education: Patient Medication Summary Completed [...] considered contagious. 09/20/2017 Appointment: Danette Acharya WPtel: [phone] [facility] (30 min) [facility] 09/20/2017 Patient Education: Patient Medication Summary Completed [...] current regimen 08/13/2017 Appointment: Destiny Tobias WPtel: [phone] [facility] (15 min) Moderate 08/13/2017 Patient Education: Patient [...] becoming uncontrolled. 02/06/2017 Appointment: Destiny Tobias WPtel: [facility]5 [facility]66[facility] (15 min) Moderate 02/06/2017 Patient Education: Patient Medication Summary Completed 02/06/2017 Appointment: Destiny Tobias WPtel: [facility]5 [facility] (15 min) Moderate 11/30/2016 Visit Plan: Hypertension - well controlled - continue with current medications, continue with no added salt diet. Pt has been encouraged to exercise daily. The pt has been advised to call the office if there are any acute concerns about change in blood pressure readings at home. Headache improved. 10/17/2016 Appointment: Destiny Tobias WPtel: [facility]0 [facility] (15 min) Moderate 10/17/2016 Patient Education: Patient [...] Allergies - kenalog shot today 10/05/2016 [facility]ment: [phone] [place] (15 min) Moderate 10/05/2016 Patient Education: Patient [...] becoming uncontrolled. 12/02/2015 Appointment: [phone] [place] (15 min) Moderate 12/02/2015 Patient Education: Patient [...] Care Plan: COMPLETE CBC AUTOMATED LOINC : 64872-2 Ordered 05/27/2015 Visit Plan: Hypertension - well [...] becoming uncontrolled. 11/27/2014 Appointment: Dest[facility]el[phone] [place] ([facility] New Patient 11/27/2014 Patient Education: [...] rate controlled - continue current regimen . Shingles - Herpes Zoster - acute [...] the pt is to be considered contagious. tums chewable alkaseltzer gas and acid peptobismol [...]
--- OUTSIDE RECORDS SUMMARY | 2018-08-03 18:02 | XMS REPORT | Continuity of Care Document ---
Author Author [facility] Organization [facility] Address Unknown Phone Unavailable Allergies Active [...] Ot V58.66 04/30/2010 Ot V58.69 11/04/2012 CODY VARGAS MD Ot 401.9 HYPERTENSION NOS 11/04/2012 SAM BERNSTEIN, CODY Lott Ot 562.10 DIVERTICULOSIS COLON (W/O MENT OF HEMORR 11/04/2012 CODY VARGAS MD Ot V16.0 FAMILY HX-GI MALIGNANCY 11/04/2012 CODY VARGAS MD Ot V58.66 LONG-TERM (CURRENT) USE OF ASPIRIN 11/04/2012 CODY VARGAS MD Ot V58.69 OTH MED,LT,CURRENT USE 11/04/2012 SAM BERNSTEIN, CODY Lott Ot V76.51 SCREEN MAL NEOP-COLON 07/28/2014 KEITH [...] 272.4 07/20/2015 LEONORA OWENS Ot 401.9 07/20/2015 LEOONRA OWENS Ot 427.31 07/20/2015 LEONORA OWENS Ot [...] FOR MALIGNANT NE 09/07/2016 GUZMAN, CARROLL M DYEING MACHINE TENDER Ot Z12.31 ENCNTR SCREEN MAMMOGRAM FOR MALIGNANT NE 09/08/2016 CARROLL GUZMAN DYEING MACHINE TENDER Ot Z12.31 ENCNTR SCREEN MAMMOGRAM FOR MALIGNANT NE 09/08/2016 CARROLL GUZMAN DYEING MACHINE TENDER Ot Z12.31 ENCNTR SCREEN MAMMOGRAM FOR MALIGNANT NE 09/08/2016 CARROLL GUZMAN DYEING MACHINE TENDER Ot Z12.31 ENCNTR SCREEN MAMMOGRAM FOR MALIGNANT NE 09/28/2016 CARROLL GUZMAN DYEING MACHINE TENDER Ot Z12.31 ENCNTR SCREEN MAMMOGRAM FOR MALIGNANT NE 10/11/2016 BRENDEN BERNSTEIN, CHENTE Middleton Ot R51 HEADACHE 11/03/2016 CHENTE WILCOX MD Ot R51 HEADACHE 10/26/2017 CARROLL GUZMAN DYEING MACHINE TENDER Ot Z12.31 ENCNTR SCREEN MAMMOGRAM FOR MALIGNANT NE 11/22/2017 CARROLL GUZMAN DYEING MACHINE TENDER Ot Z12.31 ENCNTR SCREEN MAMMOGRAM FOR MALIGNANT NE 03/07/2018 SAM BERNSTEIN, CODY Lott Ot V72.84 EXAM PRE-OPERATIVE NOS 03/07/2018 EDWIN BERNSTEIN, KEITH Lott Ot V76.12 OTH SCREEN MAMMO-MALIGN NEOPLASM OF BRENNA 03/07/2018 LEONORA OWENS Ot 272.4 HYPERLIPIDEMIA NEC/NOS 03/07/2018 LEONORA OWENS Ot 401.9 HYPERTENSION NOS 03/07/2018 LEONORA OWENS Ot 427.31 ATRIAL FIBRILLATION 03/07/2018 LEONORA OWENS Ot 780.2 SYNCOPE AND COLLAPSE 03/07/2018 KEITH PINDEA MD Ot V76.12 OTH SCREEN MAMMO-MALIGN NEOPLASM OF BRENNA 03/07/2018 Ot I10 ESSENTIAL ( PRIMARY) HYPERTENSION 03/07/2018 Ot I48.0 PAROXYSMAL ATRIAL FIBRILLATION 03/07/2018 Ot I65.23 OCCLUSION AND STENOSIS OF BILATERAL MONTE 03/07/2018 Ot R00.2 PALPITATIONS 03/07/2018 ALON MARIO APRN Ot Z12.31 ENCNTR SCREEN MAMMOGRAM FOR MALIGNANT NE 03/07/2018 CARROLL GUZMAN DYEING MACHINE TENDER Ot Z12.31 ENCNTR SCREEN MAMMOGRAM FOR MALIGNANT NE 03/07/2018 BRENDEN BERNSTEIN, CHENTE A Ot R51 HEADACHE 03/07/2018 THOMAS CARROLL Lott DYEING MACHINE TENDER Ot Z12.31 ENCNTR SCREEN MAMMOGRAM FOR MALIGNANT [...] RHEUMATIC DISORD OF MITRAL, AORTIC 03/17/2018 ANGELA REYAN MD Ot I10 ESSENTIAL (PRIMARY) HYPERTENSION 03/17/2018 [...] 04/08/2018 ANGELA REYNA MD Ot R00.2 PALPITATIONS 04/08/2018 CODY VARGAS MD Ot Z01.818 ENCOUNTER FOR OTHER PREPROCEDURAL EXAMIN 04/08/2018 CODY VARGAS MD Ot I10 ESSENTIAL (PRIMARY) HYPERTENSION 04/08/2018 CODY VARGAS MD Ot I48.91 UNSPECIFIED ATRIAL FIBRILLATION 04/08/2018 CODY VARGAS MD Ot K57.30 DVRTCLOS OF LG INT W/O PERFORATION OR AB 04/08/2018 CODY VARGAS MD Ot Z12.11 ENCOUNTER FOR SCREENING FOR MALIGNANT NE 04/08/2018 CODY VARGAS MD Ot Z79.899 OTHER LONG-TERM (CURRENT) DRUG THERAPY 04/08/2018 CODY VARGAS MD, Ot Z80.0 FAMILY HISTORY OF MALIGNANT NEOPLASM OF 04/10/2018 CODY VARGAS MD Ot I10 ESSENTIAL (PRIMARY) HYPERTENSION 04/10/2018 CODY VARGAS MD Ot I48.91 UNSPECIFIED ATRIAL FIBRILLATION 04/10/2018 CODY VARGAS MD Ot K57.30 DVRTCLOS OF LG INT W/O PERFORATION OR AB 04/10/2018 CODY VARGAS MD Ot Z12.11 ENCOUNTER FOR SCREENING FOR MALIGNANT NE 04/10/2018 CODY VARGAS MD Ot Z79.899 OTHER TELEVISION WRITER (CURRENT) DRUG THERAPY 04/10/2018 CODY VARGAS MD Ot Z80.0 FAMILY HISTORY OF MALIGNANT NEOPLASM OF 04/12/2018 CODY VARGAS MD Ot I10 ESSENTIAL (PRIMARY) HYPERTENSION 04/12/2018 CODY VARGAS MD, Ot I48.91 UNSPECIFIED ATRIAL FIBRILLATION 04/12/2018 CDOY VARGAS MD, Ot K57.30 DVRTCLOS OF LG INT W/O PERFORATION OR AB 04/12/2018 CODY VARGAS MD Ot Z12.11 ENCOUNTER FOR SCREENING FOR MALIGNANT NE 04/12/2018 CODY VARGAS MD, Ot Z79.899 OTHER LONG-TERM (CURRENT) DRUG THERAPY 04/12/2018 CODY VARGAS MD Ot Z80.0 FAMILY HISTORY OF MALIGNANT NEOPLASM OF 07/16/2018 DEVEN TONY MD Ot M75.21 BICIPITAL TENDINITIS, RIGHT SHOULDER 07/16/2018 DEVEN TONY MD Ot 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 Results There is no data. Encounters ACCT No. Visit Date/Time Discharge Status Pt. Type Provider Facility Loc./Unit Complaint [id number] 07/31/2018 12:56:00 07/31/2018 23:59:59 CLS Outpatient DEVEN TONY MD [facility] REHAB R SHOULDER INPINGEMENT ; BICEPS TENDONITIS [id number] 04/08/2018 07:49:00 04/08/2018 10:50:00 DIS Outpatient CODY VARGAS MD [facility] ENDO SCREENING/FAMILY HX COLON CANCER [id number] 04/04/2018 08:38:00 04/04/2018 08:48:00 DIS Outpatient CODY VARGAS MD [facility] PREOP COLONOSCOPY [id number] 03/11/2018 09:34:00 03/11/2018 23:59:59 CLS Outpatient AXEL BERNSTEIN, ANGELA Castellanos [facility] CARD CAROTID ARTERY STENOSIS, HTN,PALPITATIONS [id number] 11/02/2017 13:40:00 11/02/2017 23:59:59 CLS Outpatient CARROLL GUZMAN DYEING MACHINE TENDER [facility] RAD SCREENING [id number] 10/09/2016 13:15:00 10/09/2016 23:59:59 CLS Outpatient CHENTE WILCOX MD [facility] RAD R51 [id number] 09/07/2016 13:01:00 09/07/2016 23:59:59 CLS Outpatient CARROLL GUZMAN DYEING MACHINE TENDER [facility] RAD SCREENING [id number] 07/20/2015 10:21:00 07/20/2015 23:59:59 CLS Outpatient ALON MARIO APRN [facility] RAD SCREENING [id number] 07/06/2014 09:44:00 07/06/2014 23:59:59 CLS Outpatient KEITH PINEDA MD [facility] RAD SCREENING [id number] 09/15/2013 12:38:00 09/15/2013 23:59:59 CLS Outpatient LEONORA OWENS [facility] CARD CAROTID ARTERY STENOSIS,HTN,HLP [id number] 07/04/2013 13:13:00 07/04/2013 23:59:59 CLS Outpatient KEITH PINEDA MD [facility] RAD SCREENING [id number] 11/04/2012 09:28:00 11/04/2012 12:25:00 DIS Outpatient CODY VARGAS MD [facility] SDC SCREENING; FAMILY HX COLON CANCER [id number] 11/01/2012 08:12:00 11/01/2012 23:59:59 CLS Outpatient CODY VARGAS MD [facility] PREOP SCREENING; FAMILY HX COLON CANCER [id number] 05/06/2015 09:05:00 Document Registration [id number] 07/12/2012 11:11:00 Document Registration [id number] 06/28/2012 11:02:00 Document Registration [id number] 08/02/2011 11:28:00 Document Registration [id number] 08/01/2011 08:55:00 Document Registration [id number] 06/19/2011 13:15:00 Document Registration [id number] 12/05/2010 05:49:00 Document Registration [id number] 06/15/2010 13:53:00 Document Registration [id number] 04/29/2010 20:30:00 Document Registration [id number] 02/06/2017 18:13:26 02/06/2017 23:59:59 CLS Outpatient [facility] 07/07/2014 00:39:52 ACT Document Registration [id number] 07/03/2018 09:04:00 07/03/2018 23:59:00 DIS Outpatient DEVEN TONY
--- NOTE | 2018-08-03 18:47 | ED Fall/Injury ---
General Chief Complaint: Trauma-Non Activation Stated Complaint: FALL/HEAD AND BACK PAIN Source: patient History of Present Illness Date Seen by Provider: Aug 03, 2018 Time Seen by Provider: 18:34 Initial Comments PT ARRIVES VIA POV FROM HOME STATES SHE SLIPPED ON THE ICE AND FELL BACKWARDS, [place]ING ON [address]-- OCCURRED AROUND 1630 LANDED ON BUTTOCKS AND HIT THE BACK OF HER HEAD ON THE GROUND--STATES IT KNOCKED HER WIG OFF C/O SEVERE PAIN TO TAILBONE C/O HEADACHE AND ALOT OF PAIN TO BACK OF HEAD C/O PAIN TO LOWER BACK NO LOSS OF CONSCIOUSNESS BUT "SAW STARS" WAS ABLE TO GET UP AND WALK INTO HOUSE NO PARESTHESIAS OR MOTOR DEFICITS NO DIZZINESS NO NAUSEA/VOMITING NO VISION CHANGES NO BLEEDING ANYWHERE--PT IS ON ELIQUIS--TOOK AM DOSE, BUT HAS NOT HAD PM DOSE YET PCP: DR. WILCOX--HAS ROUTINE APPOINTMENT ON SUNDAY Allergies and Home Medications Allergies Coded Allergies: Bety Known Allergies (Verified Allergy, Unknown, 10/16/05) Home Medications Apixaban 5 Mg Tablet, 5 MG PO BID, (Reported) Calcium Carbonate 600 Mg Tablet, 600 MG PO BID, (Reported) Cyanocobalamin (Vitamin B-12) 2,500 Mcg Tablet, 2,500 MCG PO DAILY, (Reported) Cyclobenzaprine HCl 5 Mg Tablet, 5 MG PO Q8H Prescribed by: LORRI CHEN on 08/03/182043 Diltiazem HCl 180 Mg Tab.er.24h, 180 MG PO DAILY, (Reported) Metoprolol Succinate 50 Mg Tab.er.24h, 50 MG PO BID, (Reported) Leonidas 3 Polyunsat Fatty Acids 1,000 Mg Cap, 1,000 MG PO BID, (Reported) Pravastatin Sodium 20 Mg Tablet, 20 MG PO DAILY, (Reported) Tramadol HCl 50 Mg Tablet, 25-50 MG PO Q4H Prescribed by: LORRI CHEN on 08/03/182043 Patient Home Medication List Home Medication List Reviewed: Yes Review of Systems Review of Systems Constitutional: no symptoms reported; No dizziness Eyes: No Symptoms Reported Ears, Nose, Mouth, Throat: no symptoms reported Respiratory: no symptoms reported Cardiovascular: no symptoms reported Gastrointestinal: no symptoms reported Genitourinary: no symptoms reported Musculoskeletal: see HPI, back pain, other (ONGOING PROBLEMS WITH RIGHT SHOULDER--HAS BEEN GOING TO PT FOR IT) Skin: no symptoms reported Psychiatric/Neurological: See HPI, Headache; Denies Numbness, Denies Paresthesia, Denies Seizure, Denies Tingling, Denies Weakness Past Bvwuvsi-Kwailr-Jwddjj Hx Patient Social History Recent Foreign Travel: No Contact w/Someone Who Travel: No Recent Hopitalizations: No Immunizations Up To Date Date of Pneumonia Vaccine: November 05, 2007 Seasonal Allergies Seasonal Allergies: Yes Past Medical History Surgeries: Yes (COLONOSCOPY) Appendectomy, Tonsillectomy Respiratory: No Cardiac: Yes Atrial Fibrillation, Hypertension Neurological: No Reproductive Disorders: No Genitourinary: No Gastrointestinal: No Musculoskeletal: No Endocrine: No HEENT: No Cancer: No Psychosocial: No Integumentary: No Blood Disorders: No Family Medical History Colon cancer Physical Exam Vital Signs Vital Signs - First Documented 08/03/18 18:33 Temp 98.9 Pulse 80 Resp 18 B/P (MAP) 149/116 (127) Pulse Ox 97 O2 Delivery Room Air Capillary Refill : Height, Weight, BMI Height: 5'3.00" Weight: 140lbs. 0.0oz. 63.539946jb; 24.8 BMI Method:Stated General Appearance: WD/WN, no apparent distress HEENT: PERRL/EOMI, normal ENT inspection, TMs normal, pharynx normal, other ( MILD TENDERNESS AND FAINT ERYTHEMA TO POSTERIOR SCALP) Neck: non-tender, full range of motion, supple, normal inspection Cardiovascular: normal peripheral pulses, regular rate, rhythm, no edema, no JVD, no murmur Respiratory: chest non-tender, normal breath sounds, no respiratory distress, no accessory muscle use Peripheral Pulses: 2+ Dorsalis Pedis (R), 2+ Left Dors-Pedis (L), 2+ Radial Pulses (R), 2+ Radial Pulses (L) Gastrointestinal: normal bowel sounds, non tender, soft, no organomegaly, no pulsatile mass Back: no CVA tenderness, other (TENDERNESS TO SACRUM/COCCYX AREA .NO EXTERNAL EVIDENCE OF TRAUMA TO THIS AREA. ) Extremities: normal range of motion, non-tender, normal inspection, no pedal edema, no calf tenderness, normal capillary refill Neurologic/Psychiatric: no motor/sensory deficits, alert, normal mood/affect, oriented x 3 Skin: normal color, warm/dry Beka Coma Score Best Eye Response: (4) Open Spontaneously Best Verbal Response: (5) Oriented Best Motor Response: (6) Obeys Commands [place] Total: 15 Progress/Results/Core Measures Results/Orders Lab Results Laboratory Tests Test 08/03/18 18:40 Range/Units White Blood Count 9.5 4.3-11.0 10^3/uL Red Blood Count 5.09 4.35-5.85 10^6/uL Hemoglobin 15.2 11.5-16.0 G/DL Hematocrit 43 35-52 % Mean Corpuscular Volume 85 80-99 FL Mean Corpuscular Hemoglobin 30 25-34 PG Mean Corpuscular Hemoglobin Concent 35 32-36 G/DL Red Cell Distribution Width 13.3 10.0-14.5 % Platelet Count 276 130-400 10^3/uL Mean Platelet Volume 9.8 7.4-10.4 FL Neutrophils (%) (Auto) 62 42-75 % Lymphocytes (%) (Auto) 28 12-44 % Monocytes (%) (Auto) 8 0-12 % Eosinophils (%) (Auto) 2 0-10 % Basophils (%) (Auto) 0 0-10 % Neutrophils # (Auto) 5.9 1.8-7.8 X 10^3 Lymphocytes # (Auto) 2.7 1.0-4.0 X 10^3 Monocytes # (Auto) 0.8 0.0-1.0 X 10^3 Eosinophils # (Auto) 0.2 0.0-0.3 10^3/uL Basophils # (Auto) 0.0 0.0-0.1 10^3/uL Prothrombin Time 13.4 12.2-14.7 SEC INR Comment 1.0 0.8-1.4 Activated Partial Thromboplast Time 33 24-35 SEC Sodium Level 142 135-145 MMOL/L Potassium Level 4.1 3.6-5.0 MMOL/L Chloride Level 106 98-107 MMOL/L Carbon Dioxide Level 26 21-32 MMOL/L Anion Gap 10 5-14 MMOL/L Blood Urea Nitrogen 16 7-18 MG/DL Creatinine 1.02 0.60-1.30 MG/DL Estimat Glomerular Filtration Rate 52 BUN/Creatinine Ratio 16 Glucose Level 113 H 70-105 MG/DL Calcium Level 10.1 8.5-10.1 MG/DL Corrected Calcium 9.9 8.5-10.1 MG/DL Magnesium Level 2.8 H 1.8-2.4 MG/DL Total Bilirubin 0.3 0.1-1.0 MG/DL Aspartate Amino Transf (AST/SGOT) 36 H 5-34 U/L Alanine Aminotransferase (ALT/SGPT) 30 0-55 U/L Alkaline Phosphatase 85 40-136 U/L Total Protein 7.8 6.4-8.2 GM/DL Albumin 4.3 3.2-4.5 GM/DL My Orders Orders - LORRI CHEN DO Saline Lock/Iv-Start (08/03/18 18:34) Monitor-Rhythm Ecg Trace Only (08/03/18 18:34) Ct Head/Cervical Spine Wo (08/03/18 18:34) Ct Thoracic/Lumbar Spine Wo (08/03/18 18:34) Cbc With Automated Diff (08/03/18 18:34) Comprehensive Metabolic Panel (08/03/18 18:34) Magnesium (08/03/18 18:34) Protime With Inr (08/03/18 18:34) Partial Thromboplastin Time (08/03/18 18:34) Chest 1 View, Ap/Pa Only (08/03/18 18:34) Pelvis (08/03/18 18:34) Cervical Collar (08/03/18 18:34) Ct Pelvis Wo (08/03/18 18:34) Ketorolac Injection (Toradol Injection) (08/03/18 20:45) Ketorolac Injection (Toradol Injection) (08/03/18 20:42) Medications Given in ED Current Medications Medications Dose Ordered Sig/Christine Route Start Time Stop Time Status Last Admin Dose Admin Ketorolac Tromethamine 15 mg ONCE ONCE IVP 08/03/18 20:45 08/03/18 20:48 DC 08/03/18 20:48 15 MG Vital Signs/I&O 08/03/18 18:33 Temp 98.9 Pulse 80 Resp 18 B/P (MAP) 149/116 (127) Pulse Ox 97 O2 Delivery Room Air Progress Progress Note : Progress Note CERVICAL COLLAR APPLIED ON ARRIVAL REMOVED AT [address] RESULTS UNEVENTFUL ER STAY PT WALKS UPRIGHT AND MOVES VERY QUICKLY AT DISMISSAL DOES NOT APPEAR TO BE IN ANY DISCOMFORT OR DISTRESS Diagnostic Imaging Comments CT SCANS AND XRAYS --PER RADIOLOGIST REPORTS @ 2032 CXR--NO ACUTE PROCESS PELVIS--NO ACUTE PROCESS CT HEAD/CERVICAL SPINE--NO ACUTE PROCESS CT THORACIC/LUMBAR SPINE--NO ACUTE PROCESS, DEGENERATIVE CHANGES L4-L5 CT PELVIS--NO FRACTURE OR ACUTE PROCESS Reviewed: Reviewed by Me Departure Impression Primary Impression: S/P FALL ON ICE Additional Impressions: Closed head injury without loss of consciousness CERVICAL SPINE STRAIN SACRUM AND COCCYX CONTUSION Low back strain Disposition: 01 HOME, SELF-CARE Condition: Stable Departure-Patient Inst. Referrals: CHENTE WILCOX MD (PCP/Family) Primary Care Physician Patient Instructions: CHEST CONTUSION, Cervical Muscle Strain (DC), Lumbar Muscle Strain (DC), Minor Head Injury (DC), Preventing Falls in the Older Adult Add. Discharge Instructions: ICE TO SORE AREAS AT 20 MINUTE INTERVALS FOR THE FIRST 2 DAYS, THEN ALTERNATE ICE AND HEAT TO SORE AREAS AT 20 MINUTE INTERVALS ACTIVITIES TOLERATED FOLLOW UP WITH DR. WILCOX ON SUNDAY SCHEDULED All discharge instructions reviewed with patient and/or family. Voiced understanding. Scripts Cyclobenzaprine HCl (Cyclobenzaprine HCl) 5 Mg Tablet 5 MG PO Q8H for Muscle Cramps, #15 TAB Prov: LORRI CHEN DO 08/03/18 Tramadol HCl (Ultram) 50 Mg Tablet 25-50 MG PO Q4H, #20 TAB Prov: LORRI CHEN DO 08/03/18 Images Full Body/Extremities Full Progress SEE ADDITIONAL PAPER DIAGRAMS FOR IMAGES LORRI CHEN DO Aug 03, 2018 18:47
[2018-08-03 18:48] LABS: BASOPHILS % (AUTO) 0 % (0-10); EOSINOPHILS # (AUTO) 0.2 10^3/uL (0.0-0.3); EOSINOPHILS % (AUTO) 2 % (0-10); HEMATOCRIT 43 % (35-52); HEMOGLOBIN 15.2 G/DL (11.5-16.0); LYMPHOCYTES # (AUTO) 2.7 X 10^3 (1.0-4.0); LYMPHOCYTES % (AUTO) 28 % (12-44); MEAN CORPUSCULAR HEMOGLOBIN 30 PG (25-34); MEAN CORPUSCULAR HGB CONC 35 G/DL (32-36); MEAN CORPUSCULAR VOLUME 85 FL (80-99); MEAN PLATELET VOLUME 9.8 FL (7.4-10.4); MONOCYTES # (AUTO) 0.8 X 10^3 (0.0-1.0); MONOCYTES % (AUTO) 8 % (0-12); NEUTROPHILS # (AUTO) 5.9 X 10^3 (1.8-7.8); NEUTROPHILS % (AUTO) 62 % (42-75); PLATELET COUNT 276 10^3/uL (130-400); RED CELL DISTRIBUTION WIDTH 13.3 % (10.0-14.5); WHITE BLOOD COUNT 9.5 10^3/uL (4.3-11.0)
[2018-08-03 19:03] LABS: PROTHROMBIN TIME PATIENT 13.4 SEC (12.2-14.7)
[2018-08-03 19:10] LABS: ALBUMIN 4.3 GM/DL (3.2-4.5); BILIRUBIN,TOTAL 0.3 MG/DL (0.1-1.0); CALCIUM 10.1 MG/DL (8.5-10.1); CREATININE SERUM 1.02 MG/DL (0.60-1.30); MAGNESIUM 2.8 MG/DL (1.8-2.4); POTASSIUM 4.1 MMOL/L (3.6-5.0); TOTAL PROTEIN 7.8 GM/DL (6.4-8.2)
--- NOTE | 2018-08-03 19:36 | NUR ---
C-COLLAR APPLIED. , PROVIDER IN ROOM.
--- NOTE | 2018-08-03 20:10 | Diagnostic Imaging Report ---
PROCEDURE: CT head and CT cervical spine without contrast. TECHNIQUE: Multiple contiguous axial images were obtained through the brain and cervical spine without the use of intravenous contrast. Sagittal and coronal reformations through the cervical spine were then performed. INDICATION: Fall with trauma to head. On blood thinners. COMPARISON: 10/09/2016. FINDINGS: CT head: No hyperdense hemorrhage or space-occupying mass. No hydrocephalus or midline shift. No acute fracture of the skull. Paranasal sinuses and mastoid air cells are clear. CT cervical spine: No acute fracture or traumatic malalignment. No areas of high-grade spinal canal narrowing. Varying degrees of neuroforaminal stenosis due to uncovertebral joint hypertrophy and facet osteoarthritis. Airway remains widely patent. No cervical lymphadenopathy. Lung apices are clear. IMPRESSION: 1. No acute intracranial hemorrhage or skull fracture. 2. No acute fracture or traumatic malalignment in the cervical spine. Dictated by: Dictated on workstation # [id number]
--- NOTE | 2018-08-03 20:16 | Diagnostic Imaging Report ---
INDICATION: Back pain after fall. COMPARISON: CT pelvis performed concurrently. TECHNIQUE: Unenhanced CT imaging of the thoracolumbar spine was performed. FINDINGS: There is normal kyphosis of the thoracic spine. Normal lordosis of the lumbar spine. No compression or burst fracture within the thoracic spine. No burst fracture within the lumbar spine. Minimal height loss of the L4 vertebral body does not have associated acute fracture lines and is likely chronic in nature. No fracture within the posterior elements of the lumbar or thoracic spine. No pleural effusion or pneumothorax. A small amount of dependent atelectasis is present. No concerning abnormality in the retroperitoneum. Disc bulging and posterior mild hypertrophy causes moderate spinal stenosis at L4-L5. IMPRESSION: 1. No acute fracture or traumatic malalignment in the thoracic and lumbar spine. 2. Chronic superior endplate compression fracture of L4 has less than 10% height loss. 3. Moderate spinal stenosis at L4-L5 due to degenerative disc bulge and posterior element hypertrophy. Dictated by: Dictated on workstation # [id number]
--- NOTE | 2018-08-03 20:21 | Diagnostic Imaging Report ---
INDICATION: Trauma after fall. COMPARISON: 04/29/2010. TECHNIQUE: Single view of the chest was obtained. FINDINGS: Chronic linear scar/atelectasis in the right perihilar region. Otherwise, visualized lungs are clear. Posterior lower lobes are poorly evaluated by portable radiography. No pleural effusion or pneumothorax. Heart is on the upper limits of normal in size which is unchanged. No displaced fracture in the visualized ribs or clavicles. IMPRESSION: No acute process by portable radiography. Dictated by: Dictated on workstation # [id number]
--- NOTE | 2018-08-03 20:22 | Diagnostic Imaging Report ---
INDICATION: Fall. COMPARISON: CT pelvis performed concurrently. TECHNIQUE: Single AP view of the pelvis was obtained. FINDINGS: The hips are normal in alignment. No displaced fracture. SI joints are normal. Degenerative changes in the lower lumbar spine. IMPRESSION: No acute osseous abnormality in the pelvis by radiography. Please see CT pelvis report for more complete details. Dictated by: Dictated on workstation # [id number]
--- NOTE | 2018-08-03 20:25 | Diagnostic Imaging Report ---
PROCEDURE: CT pelvis without contrast. TECHNIQUE: Multiple contiguous axial images were obtained through the pelvis without the use of intravenous contrast. Sagittal and coronal reformations were performed. INDICATION: Low back and tailbone pain after fall. COMPARISON: CT lumbar spine performed concurrently. FINDINGS: CT bones: No acute fracture within the osseous pelvis or proximal femurs. Specifically, there is no fracture of the coccyx or sacrum. Mild degenerative changes of the SI joints. Advanced degenerative disc disease at L4-L5 and L5-S1. CT soft tissues: No pelvic hematoma. No free pelvic fluid. Musculature of the bilateral hips is grossly symmetric without features of acute tendon tear. Uterus is normal in appearance. IMPRESSION: No acute fracture in the pelvis or proximal femurs. Dictated by: Dictated on workstation # [id number]
--- NOTE | 2018-08-03 20:35 | NUR ---
C-COLLAR REMOVED BY DR. GUSTAVO MD
[2018-08-03] MEDS ORDERED: KETOROLAC 30 MG/ML VIAL ONE (20:42)
[2018-08-03] MEDS ORDERED: TRAM-42 PO (20:44)
[2018-08-03] MEDS ORDERED: CYCL5TAB PO (20:44)
[2018-08-03] MEDS ORDERED: KETOROLAC 15 MG/ML VIAL IVP ONE (20:45)
[2018-08-03 21:10] VITALS: BP 167/85
== END 2018-08-03 21:16 | disposition home or self-care (01) ==
LOC: EDUNIT# 17:52 → ER 17:53
DX: S09.90XA Unspecified injury of head, initial encounter (principal); S16.1XXA Strain of muscle, fascia and tendon at neck level, initial encounter; S39.012A Strain of muscle, fascia and tendon of lower back, initial encounter; I48.91 Unspecified atrial fibrillation; I10 Essential (primary) hypertension; R40.2142 Coma scale, eyes open, spontaneous, at arrival to emergency department; R40.2252 Coma scale, best verbal response, oriented, at arrival to emergency department; R40.2362 Coma scale, best motor response, obeys commands, at arrival to emergency department; Z90.49 Acquired absence of other specified parts of digestive tract; Z90.89 Acquired absence of other organs; Z80.0 Family history of malignant neoplasm of digestive organs; W00.0XXA Fall on same level due to ice and snow, initial encounter
CPT/HCPCS: 36415; 70450; 71045; 72125; 72128; 72131; 72170; 72192; 80053; 83735; 85025; 85610; 85730; 93041

== ENCOUNTER → 2018-08-21 | Outpatient (CLI) | payer MEDICARE, OTHER ==
[~2018-08-21] MED LIST changes: +CATHETER FLUSH 10 ML SYR IV PRN; +CYCL5TAB PO; +REGADENOSON 0.4 MG/5 ML SYR (LEXISCAN) IV ONE; +TRAM-42 PO
[2018-08-21 10:18] VITALS: BP 154/74
--- NOTE | 2018-08-21 14:17 | STRESS TEST ---
DATE OF SERVICE: 08/21/2018 LEXISCAN MYOVIEW STRESS TEST REPORT REFERRING PHYSICIAN: Dr. Tobias. Baseline heart rate is 62. Baseline blood pressure 157/74. Baseline EKG is sinus rhythm with no ischemic changes. In summary, the patient was injected with 10.61 mCi of technetium-99 Myoview and the resting images were obtained, then received 0.4 mg of Lexiscan followed by 29 mCi of technetium-99 Myoview. Throughout the test, there were no EKG changes. The resting and stress images were reviewed and compared in the short axis, horizontal long axis and vertical long axis views. Review of the images showed small left ventricle with no ischemia or infarction, extracardiac attenuation; stress score was abnormal due to the extracardiac attenuation. TID value is 0.71. On the gated images, the left ventricle appeared to be small in size with good contractility and calculated ejection fraction of 90%. CONCLUSION: 1. The patient tolerated the Lexiscan well. 2. No significant ischemia or infarction on SPECT images. 3. Small left ventricular size with good contractility and calculated ejection fraction of 90%. Job ID: [id number] DocumentID: [id number] Dictated Date: 08/21/2018 11:37:57 3R[address] Pressman Date: 08/21/2018 12:20:34 Dictated By: ANGELA REYNA MD
== END ==
LOC: CARD 08:07
PROVIDERS: ATTEND Physician Assistant
DX: I10 Essential (primary) hypertension (principal); E78.5 Hyperlipidemia, unspecified; I48.0 Paroxysmal atrial fibrillation; R00.2 Palpitations
CPT/HCPCS: 78452; 93017

== ENCOUNTER 2018-10-01 10:06 | Outpatient (RCR) | payer MEDICARE, OTHER ==
[~2018-10-01 10:06] MED LIST changes: -CATHETER FLUSH 10 ML SYR IV PRN; -REGADENOSON 0.4 MG/5 ML SYR (LEXISCAN) IV ONE
== END 2018-10-02 | disposition home or self-care (01) ==
PROVIDERS: ATTEND Orthopaedic Surgery Sports Medicine
DX: M75.41 Impingement syndrome of right shoulder (principal); M75.21 Bicipital tendinitis, right shoulder

== ENCOUNTER 2018-10-03 10:53 | Outpatient (RCR) | payer MEDICARE, OTHER | END 2018-10-14 14:05 | disposition home or self-care (01) | PROVIDERS: ATTEND Orthopaedic Surgery Sports Medicine | DX: M75.41 Impingement syndrome of right shoulder (principal); M75.21 Bicipital tendinitis, right shoulder ==

== ENCOUNTER → 2020-02-12 | Outpatient (CLI) | payer MEDICARE, OTHER ==
[~2020-02-12] MED LIST changes: -CALC600T12 PO; +CALC600T14 PO; -METO-370 PO; +METO50TA7 PO
== END ==
LOC: CARD 13:00
PROVIDERS: ATTEND Physician Assistant
DX: I08.0 Rheumatic disorders of both mitral and aortic valves (principal); I10 Essential (primary) hypertension; I48.0 Paroxysmal atrial fibrillation; I65.23 Occlusion and stenosis of bilateral carotid arteries; E78.5 Hyperlipidemia, unspecified
CPT/HCPCS: 93306

== ENCOUNTER 2020-11-14 17:51 | Emergency (ER) | payer MEDICARE, OTHER ==
[~2020-11-14] VITALS: Ht 160 cm; Wt 65.0 kg
[~2020-11-14 17:51] MED LIST changes: -CALC600T14 PO; +CALC600T91 PO
[2020-11-14 18:34] LABS: BASOPHILS # (AUTO) 0.1 10^3/uL (0.0-0.1); BASOPHILS % (AUTO) 1 % (0-10); EOSINOPHILS # (AUTO) 0.2 10^3/uL (0.0-0.3); EOSINOPHILS % (AUTO) 2 % (0-10); HEMATOCRIT 43 % (35-52); HEMOGLOBIN 14.7 g/dL (11.5-16.0); LYMPHOCYTES # (AUTO) 3.2 10^3/uL (1.0-4.0); LYMPHOCYTES % (AUTO) 30 % (12-44); MEAN CORPUSCULAR HEMOGLOBIN 30 pg (25-34); MEAN CORPUSCULAR HGB CONC 35 g/dL (32-36); MEAN CORPUSCULAR VOLUME 87 fL (80-99); MONOCYTES # (AUTO) 0.7 10^3/uL (0.0-1.0); MONOCYTES % (AUTO) 6 % (0-12); NEUTROPHILS # (AUTO) 6.8 10^3/uL (1.8-7.8); NEUTROPHILS % (AUTO) 62 % (42-75); PLATELET COUNT 258 10^3/uL (130-400); WHITE BLOOD COUNT 10.9 10^3/uL (4.3-11.0)
[2020-11-14 18:42] LABS: CLARITY,URINE CLOUDY; COLOR,URINE AMBER; GLUCOSE, URINE (UA) NEGATIVE (NEGATIVE); KETONES,URINE TRACE (NEGATIVE); LEUKOCYTE ESTERASE ,URINE TRACE (NEGATIVE); NITRITE,URINE NEGATIVE (NEGATIVE); PROTEIN,URINE 2+ (NEGATIVE)
[2020-11-14 18:44] LABS: ALBUMIN 4.3 GM/DL (3.2-4.5); POTASSIUM 3.4 MMOL/L (3.6-5.0)
[2020-11-14 18:46] LABS: CALCIUM 9.6 MG/DL (8.5-10.1)
[2020-11-14 18:47] LABS: TOTAL PROTEIN 7.5 GM/DL (6.4-8.2)
--- NOTE | 2020-11-14 18:47 | ED GU-Female ---
General Chief Complaint: - Urinary Stated Complaint: URINATING BLOOD Nursing Triage Note: ARRIVED VIA AMB TO ROOM 10 WITHOUT DIFFICULTY. COMPLAINS OF BLOOD IN HER URINE. SEEN DR TOBIAS 1.5 WEEKS AGO AND PUT ON PREMERIN AND IS SCHEDULED WITH A UROLOGIST ON NOVEMBER 19. TODAY PT STATES SHE IS PASSING MORE BLOOD AND IS HAVING LOWER BACK PAIN. PT STATES BRENDEN TOLD HER SHE DID NOT HAVE A UTI. Nursing Sepsis Screen: No Definite Risk Source: patient Exam Limitations: no limitations (TINO NAPIER) History of Present Illness Date Seen by Provider: November 14, 2020 Time Seen by Provider: 18:17 Initial Comments Patient presents ER by private conveyance from home with chief complaint of worsening hematuria and anergia. She says for this is been going on since early September, approximately 2 months ago. She saw her primary care provider, Dr. Tobias and had a pelvic exam done as well as urine and blood. At that time they put her on some antibiotics and since it did not get better after a week she made referral to a urologist out of [place]. She has not met this urologist yet. She has had a appendectomy and tonsillectomy and no other surgeries or other significant medical history. She does take Eliquis. She is still on it. She states that her lack of energy is new in the past 2 months and is progressively getting worse. She is not passing any blood clots nor she having any significant pain, fever, nausea or dysuria. (TINO NAPIER) Timing/Duration: week (hematuria started early September, worsening over the past week) Severity/Quality: moderate (denies pain with urination, states large amounts of bloody urine) Location: other (denies pain) Radiation: none Activities at Onset: none (denies recent travel, sick contacts) Prior Genitourinary Problems: similar symptoms (mild hematuria with dysuria in early September, took an antibiotic course) Modifying Factors: Worsens With Coughing, Worsens With Defecating, Worsens With Palpation; Improves With Urinating; Worsens With Vomiting Associated Symptoms: No abdominal pain, No dysuria, No fever/chills, No nausea/vomiting, No swelling (CHRISTIANA LOZADA STUDENT) Allergies and Home Medications Allergies Coded Allergies: NKANo Known Allergies (Verified Allergy, Unknown, 10/16/05) Home Medications Apixaban 5 Mg Tablet, 5 MG PO BID, (Reported) Calcium Carbonate 600 Mg Tablet, 600 MG PO BID, (Reported) Cyanocobalamin (Vitamin B-12) 2,500 Mcg Tablet, 2,500 MCG PO DAILY, (Reported) Cyclobenzaprine HCl 5 Mg Tablet, 5 MG PO Q8H Prescribed by: LORRI CHEN on 08/03/182043 Diltiazem HCl 180 Mg Tab.er.24h, 180 MG PO DAILY, (Reported) Metoprolol Succinate 50 Mg Tab.er.24h, 50 MG PO BID, (Reported) [place] 3 Polyunsat Fatty Acids 1,000 Mg Cap, 1,000 MG PO BID, (Reported) Pravastatin Sodium 20 Mg Tablet, 20 MG PO DAILY, (Reported) Tramadol HCl 50 Mg Tablet, 25-50 MG PO Q4H Prescribed by: LORRI CHEN on 08/03/182043 Patient Home Medication List Home Medication List Reviewed: Yes (TINO NAPIER) Home Medication List Reviewed: Yes (CHRISTIANA LOZADA) Review of Systems Review of Systems Constitutional: No chills, No fever EENTM: No ear discharge, No ear pain Respiratory: No cough, No short of breath Cardiovascular: No edema, No palpitations Gastrointestinal: No abdominal pain, No nausea, No vomiting Genitourinary: denies discharge, denies dysuria, denies frequency, denies flank pain; hematuria Musculoskeletal: No back pain, No joint pain (TINO NAPIER) Constitutional: weakness (generalized, states worsening over the past couple months) EENTM: No vision loss Cardiovascular: No chest pain Gastrointestinal: No constipation, No diarrhea Skin: No change in color, No lesions, No rash Psychiatric/Neurological: Denies Headache, Denies Numbness, Denies Paresthesia, Denies Tingling; Weakness (CHRISTIANA LOZADA) All Other Systemes Reviewed Negative Unless Noted: Yes (TINO NAPIER) Negative Unless Noted: Yes (CHRISTIANA LOZADA) Past Fuhaaeb-Kufhop-Tyolbx Hx Past Med/Social Hx: Reviewed Nursing Past Med/Soc Hx (CHRISTIANA LOZADA) Patient Social History Alcohol Use: Denies Use Smoking Status: Never a Smoker 2nd Hand Smoke Exposure: No Recent Infectious Disease Expo: No Recent Hopitalizations: No (TINO NAPIER) Alcohol Use: Denies Use Smoking Status: Never a Smoker (KIERRATipbit) Immunizations Up To Date Date of Pneumonia Vaccine: November 05, 2007 (TINO NAPIER) Seasonal Allergies Seasonal Allergies: Yes (TINO NAPIER) Past Medical History Surgeries: Yes (COLONOSCOPY) Appendectomy, Tonsillectomy Respiratory: No Cardiac: Yes Atrial Fibrillation, Hypertension Neurological: No Reproductive Disorders: No Genitourinary: No Gastrointestinal: No Musculoskeletal: No Endocrine: No HEENT: No Cancer: No Psychosocial: No Integumentary: No Blood Disorders: No (TINO NAPIER) Family Medical History Colon cancer Physical Exam Vital Signs Vital Signs - First Documented 11/14/20 17:58 Temp 36.0 Pulse 94 Resp 16 B/P (MAP) 192/98 (129) Pulse Ox 97 O2 Delivery Room Air (KIERRAGL 2oursCHRISTIANA SafedoX) Vital Signs Capillary Refill : Less Than 3 Seconds (TINO NAPIER) Height, Weight, BMI Height: 5'3.50" Weight: 143lbs. 0.0oz. 64.570266sf; 25.00 BMI Method:Estimated General Appearance: WD/WN, no apparent distress HEENT: PERRL/EOMI, normal ENT inspection, pharynx normal Neck: full range of motion, normal inspection Cardiovascular: normal peripheral pulses, regular rate, rhythm, no edema Respiratory: lungs clear, normal breath sounds, no respiratory distress, no accessory muscle use Gastrointestinal: normal bowel sounds, non tender, soft, no organomegaly Extremities: normal range of motion, non-tender Neurologic/Psychiatric: alert, normal mood/affect, oriented x 3 (TINO NAPIER) General Appearance: WD/WN, no apparent distress HEENT: PERRL/EOMI, normal ENT inspection, pharynx normal Neck: non-tender Respiratory: chest non-tender Rectal: deferred Back: normal inspection, no CVA tenderness, no vertebral tenderness Extremities: normal inspection, normal capillary refill Neurologic/Psychiatric: no motor/sensory deficits Skin: normal color, warm/dry (KIERRALeWa Tek STUDENT) Progress/Results/Core Measures Suspected Sepsis Recent Fever Within 48 Hours: No Infection Criteria Present: Suspected New Infection New/Unexplained Altered Menta: No Sepsis Screen: No Definite Risk SIRS Temperature: Pulse: 94 Respiratory Rate: 16 Laboratory Tests 11/14/20 18:28: White Blood Count 10.9 Blood Pressure 192 /98 Mean: 129 Laboratory Tests 11/14/20 18:28: Creatinine 0.99, Platelet Count 258, Total Bilirubin 0.4 (TINO NAPIER) Results/Orders Lab Results Laboratory Tests Test 11/14/20 18:28 11/14/20 18:35 Range/Units White Blood Count 10.9 4.3-11.0 10^3/uL Red Blood Count 4.90 3.80-5.11 10^6/uL Hemoglobin 14.7 11.5-16.0 g/dL Hematocrit 43 35-52 % Mean Corpuscular Volume 87 80-99 fL Mean Corpuscular Hemoglobin 30 25-34 pg Mean Corpuscular Hemoglobin Concent 35 32-36 g/dL Red Cell Distribution Width 12.8 10.0-14.5 % Platelet Count 258 130-400 10^3/uL Mean Platelet Volume 10.0 9.0-12.2 fL Immature Granulocyte % (Auto) 0 % Neutrophils (%) (Auto) 62 42-75 % Lymphocytes (%) (Auto) 30 12-44 % Monocytes (%) (Auto) 6 0-12 % Eosinophils (%) (Auto) 2 0-10 % Basophils (%) (Auto) 1 0-10 % Neutrophils # (Auto) 6.8 1.8-7.8 10^3/uL Lymphocytes # (Auto) 3.2 1.0-4.0 10^3/uL Monocytes # (Auto) 0.7 0.0-1.0 10^3/uL Eosinophils # (Auto) 0.2 0.0-0.3 10^3/uL Basophils # (Auto) 0.1 0.0-0.1 10^3/uL Immature Granulocyte # (Auto) 0.0 0.0-0.1 10^3/uL Sodium Level 140 135-145 MMOL/L Potassium Level 3.4 L 3.6-5.0 MMOL/L Chloride Level 106 98-107 MMOL/L Carbon Dioxide Level 19 L 21-32 MMOL/L Anion Gap 15 H 5-14 MMOL/L Blood Urea Nitrogen 12 7-18 MG/DL Creatinine 0.99 0.60-1.30 MG/DL Estimat Glomerular Filtration Rate 54 BUN/Creatinine Ratio 12 Glucose Level 137 H 70-105 MG/DL Calcium Level 9.6 8.5-10.1 MG/DL Corrected Calcium 9.4 8.5-10.1 MG/DL Total Bilirubin 0.4 0.1-1.0 MG/DL Alkaline Phosphatase 76 40-136 U/L Total Protein 7.5 6.4-8.2 GM/DL Albumin 4.3 3.2-4.5 GM/DL (CHRISTIANA LOZADA) Vital Signs/I&O 11/14/20 17:58 Temp 36.0 Pulse 94 Resp 16 B/P (MAP) 192/98 (129) Pulse Ox 97 O2 Delivery Room Air (CHRISTIANA LOZADA) Vital Signs/I&O Capillary Refill : Less Than 3 Seconds (TINO NAPIER) Blood Pressure Mean: 129 Progress Note : Time: 18:46 Progress Note I attest that I saw this patient alongside the medical student and agree with his documented history, physical exam and review of systems except as otherwise noted. 2 months progressively worsening hematuria and anergia on Eliquis. We will discuss holding her Eliquis if her hemoglobin is significantly impacted. Plan to also check her kidney function and a urine. This is most likely a polyp, tumor or other structure in the renal bladder system such as AVM etc. We encouraged her to follow-up with urologist. (TINO NAPIER) Departure Impression Primary Impression: Painless hematuria Disposition: 01 HOME, SELF-CARE Condition: Stable Departure-Patient Inst. Decision time for Depature: 19:11 (TINO NAPIER) Referrals: CHENTE TOBIAS MD (PCP/Family) Primary Care Physician Patient Instructions: Blood in the Urine (Hematuria), Adult (DC) Add. Discharge Instructions: Drink plenty of fluids. Promptly return to the ER if you are having weakness, shortness of breath, chest pain or inability to urinate. Keep your follow-up appointments with urologist. All discharge instructions reviewed with patient and/or family. Voiced understanding. TINO NAPIER November 14, 2020 18:47 CHRISTIANA LOZADA November 14, 2020 18:57
[2020-11-14 18:48] LABS: BILIRUBIN,TOTAL 0.4 MG/DL (0.1-1.0)
[2020-11-14 18:50] LABS: CREATININE SERUM 0.99 MG/DL (0.60-1.30)
[2020-11-14 18:51] LABS: BILIRUBIN,URINE 1+ (NEGATIVE)
[2020-11-14 18:53] LABS: RBC,URINE >100 /HPF
[2020-11-14 18:54] LABS: AMORPHOUS SEDIMENT,UR RARE AMOR URATES /LPF; BACTERIA,URINE TRACE /HPF; WBC,URINE 0-2 /HPF
[2020-11-14 19:26] VITALS: BP 148/83
== END 2020-11-14 19:26 | disposition home or self-care (01) ==
LOC: EDUNIT# 17:51 → ER 17:53
DX: R31.9 Hematuria, unspecified (principal); R53.83 Other fatigue; I10 Essential (primary) hypertension; I48.91 Unspecified atrial fibrillation; Z79.01 Long term (current) use of anticoagulants; Z79.899 Other long term (current) drug therapy
CPT/HCPCS: 36415; 80053; 81000; 85025

== ENCOUNTER → 2020-11-30 | Outpatient (CLI) | payer MEDICARE, OTHER ==
[~2020-11-30] MED LIST changes: +CATHETER FLUSH 10 ML SYR IV PRN; +HOLD METFORMIN - RECEIVED CONTRAST 20 ML VIAL IV SCH; +IOHEXOL 350 MG/ML 100 ML (OMNIPAQUE 350) VIAL IV ONE; +NS 100 ML (IVPB) BAG IV ONE
--- NOTE | 2020-11-30 20:04 | Diagnostic Imaging Report ---
PROCEDURE: CT abdomen and pelvis with and without contrast. TECHNIQUE: Precontrast acquisitions were acquired through the abdomen and pelvis. Multiple contiguous axial images were obtained through the abdomen and pelvis after the administration of intravenous contrast. Auto Exposure Controls were utilized during the CT exam to meet ALARA standards for radiation dose reduction. INDICATION: Hematuria. No prior studies are available for comparison. Imaging through the lung bases demonstrates a 5 mm nodule in the right lower lobe, indeterminate. Liver demonstrates several tiny low densities, too small to accurately characterize. Gallbladder is contracted. There is no biliary ductal dilatation. Pancreas and spleen are unremarkable. No adrenal mass is detected. Kidneys are without evidence of discrete mass. There is excretion of contrast into both renal collecting systems and ureters. No definite filling defect is seen. No discrete bladder mass is identified. Aorta is nonaneurysmal. Small and large bowel loops are normal caliber. There is no obstruction. There is diverticulosis of the sigmoid but no evidence of acute diverticulitis. No free fluid or fluid collection is seen. There is questionable expansion of the uterine cavity with fluid. Correlation with ultrasound would be recommended. No definite abdominal or pelvic lymphadenopathy is seen. IMPRESSION: 1. No discrete urinary tract mass or calculi are seen. There is no obstruction. 2. 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 Correlation with pelvic sonography would be recommended for further evaluation. 3. Uncomplicated diverticulosis. Dictated by: Dictated on workstation # [id number]
== END ==
LOC: RAD 14:45
PROVIDERS: ATTEND Urology
DX: K57.30 Diverticulosis of large intestine without perforation or abscess without bleeding (principal); R31.0 Gross hematuria; R30.0 Dysuria
CPT/HCPCS: 74178

== ENCOUNTER 2020-12-20 16:47 | Day surgery (SDC) | payer MEDICARE, OTHER ==
[~2020-12-20] VITALS: Ht 160 cm; Wt 63.0 kg
[~2020-12-20 16:47] MED LIST changes: -CATHETER FLUSH 10 ML SYR IV PRN; -HOLD METFORMIN - RECEIVED CONTRAST 20 ML VIAL IV SCH; -IOHEXOL 350 MG/ML 100 ML (OMNIPAQUE 350) VIAL IV ONE; -NS 100 ML (IVPB) BAG IV ONE
[2020-12-20] MEDS ORDERED: ASPIRIN 81 MG CHEW (CHILDREN'S ASA) PO ONE (17:15)
[2020-12-20 17:40] LABS: ALBUMIN 3.7 GM/DL (3.2-4.5); POTASSIUM 3.7 MMOL/L (3.6-5.0)
[2020-12-20 17:42] LABS: CALCIUM 9.3 MG/DL (8.5-10.1)
[2020-12-20 17:43] LABS: TOTAL PROTEIN 6.6 GM/DL (6.4-8.2)
[2020-12-20 17:44] LABS: BILIRUBIN,TOTAL 0.3 MG/DL (0.1-1.0)
[2020-12-20] MEDS ORDERED: NS IV 500 ML 500 ML IV ONE (17:45)
--- NOTE | 2020-12-20 17:45 | ED GU-Female ---
General Chief Complaint: Female Reproductive Stated Complaint: VAGINAL BLEEDING / DIZZY Nursing Triage Note: PT TO ED W/ C/O VAGINAL BLEEDING ONSET SINCE SEPTEMBER OF THIS YEAR. PT REPORTS WAS SEEN IN THIS ED AROUND FOR THE SAME COMPLAINT. STATES HAD A BLADDER SCOPE @ [facility] X[facility] WK AGO ET WAS TOLD SHE NEEDS F/U W/ GYNECOLOGY FOR POSSIBLE HYSTERECTOMY. NO OTHER C/O VOICED Source: patient, family, old records Exam Limitations: no limitations History of Present Illness Date Seen by Provider: Dec 20, 2020 Time Seen by Provider: 17:01 Initial Comments This 80-year-old woman presents to the emergency room with complaints of persistent and worsening vaginal bleeding since September, and now she has developed lightheadedness, especially with standing. She was initially evaluated by her primary care provider when bleeding was light and thought to have had urinary tract infection. She was treated with antibiotics which temporarily improve the bleeding. When bleeding returned she was referred to a urologist in [place]. No significant pathology was identified on cystoscopy. She is now being referred to gynecology and has a pending appointment. She has not had a pelvic exam. She also had a CT scan demonstrating hydrometrocolpos. She is on Eliquis for A. fib. Allergies and Home Medications Allergies Coded Allergies: NKANo Known Allergies (Verified Allergy, Unknown, 10/16/05) Home Medications Apixaban 5 Mg Tablet, 5 MG PO BID, (Reported) Calcium Carbonate 600 Mg Tablet, 600 MG PO BID, (Reported) Cyanocobalamin (Vitamin B-12) 2,500 Mcg Tablet, 2,500 MCG PO DAILY, (Reported) Cyclobenzaprine HCl 5 Mg Tablet, 5 MG PO Q8H Prescribed by: LORRI CHEN on 08/03/182043 Diltiazem HCl 180 Mg Tab.er.24h, 180 MG PO DAILY, (Reported) Metoprolol Succinate 50 Mg Tab.er.24h, 50 MG PO BID, (Reported) [place] 3 Polyunsat Fatty Acids 1,000 Mg Cap, 1,000 MG PO BID, (Reported) Pravastatin Sodium 20 Mg Tablet, 20 MG PO DAILY, (Reported) Tramadol HCl 50 Mg Tablet, 25-50 MG PO Q4H Prescribed by: LORRI CHEN on 08/03/182043 Patient Home Medication List Home Medication List Reviewed: Yes Review of Systems Review of Systems Constitutional: no symptoms reported EENTM: no symptoms reported Respiratory: no symptoms reported Cardiovascular: see HPI Gastrointestinal: no symptoms reported Genitourinary: see HPI : No Musculoskeletal: no symptoms reported Skin: no symptoms reported Psychiatric/Neurological: No Symptoms Reported Endocrine: No Symptoms Reported Hematologic/Lymphatic: No Symptoms Reported Past Kryeukq-Pjbaxu-Ofncyn Hx Patient Social History Tobacco Use?: No Smoking Status: Never a Smoker Substance use?: No Alcohol Use?: No Pt feels they are or have been: No Seasonal Allergies Seasonal Allergies: Yes Past Medical History Surgeries: Yes (COLONOSCOPY) Appendectomy, Tonsillectomy Respiratory: No Cardiac: Yes Atrial Fibrillation, Hypertension Neurological: No Reproductive Disorders: No Genitourinary: No Gastrointestinal: No Musculoskeletal: No Endocrine: No HEENT: No Cancer: No Psychosocial: No Integumentary: No Blood Disorders: No Family Medical History Colon cancer Physical Exam Vital Signs Vital Signs - First Documented 12/20/20 16:55 Temp 36.6 Pulse 99 Resp 20 B/P (MAP) 155/76 (102) Pulse Ox 99 O2 Delivery Room Air Capillary Refill : Less Than 3 Seconds Height, Weight, BMI Height: 5'3.50" Weight: 143lbs. 0.0oz. 64.370826nw; 24.00 BMI Method:Estimated General Appearance: WD/WN, no apparent distress HEENT: PERRL/EOMI, normal ENT inspection Neck: normal inspection Cardiovascular: regular rate, rhythm, no edema, no murmur Respiratory: lungs clear, normal breath sounds, no respiratory distress Gastrointestinal: normal bowel sounds, non tender, soft Pelvic: other (Mild vaginal tenderness with insertion of speculum. Copious amounts of blood and clot in the vaginal vault. 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, discomfort, and copious amounts of clot and blood) Extremities: normal inspection, no pedal edema Neurologic/Psychiatric: unloading checker II-XII nml as tested, no motor/sensory deficits, alert, normal mood/affect, oriented x 3 Skin: normal color, warm/dry Progress/Results/Core Measures Suspected Sepsis SIRS Temperature: Pulse: 99 Respiratory Rate: 20 Laboratory Tests 12/20/20 17:17: White Blood Count 10.3 Blood Pressure 155 /76 Mean: 102 Laboratory Tests 12/20/20 17:17: Creatinine 1.41H, Platelet Count 260, Total Bilirubin 0.3 Results/Orders Lab Results Laboratory Tests Test 12/20/20 17:17 Range/Units White Blood Count 10.3 4.3-11.0 10^3/uL Red Blood Count 3.43 L 3.80-5.11 10^6/uL Hemoglobin 10.3 L 11.5-16.0 g/dL Hematocrit 31 L 35-52 % Mean Corpuscular Volume 89 80-99 fL Mean Corpuscular Hemoglobin 30 25-34 pg Mean Corpuscular Hemoglobin Concent 34 32-36 g/dL Red Cell Distribution Width 13.3 10.0-14.5 % Platelet Count 260 130-400 10^3/uL Mean Platelet Volume 10.0 9.0-12.2 fL Immature Granulocyte % (Auto) 0 % Neutrophils (%) (Auto) 67 42-75 % Lymphocytes (%) (Auto) 27 12-44 % Monocytes (%) (Auto) 5 0-12 % Eosinophils (%) (Auto) 1 0-10 % Basophils (%) (Auto) 0 0-10 % Neutrophils # (Auto) 6.9 1.8-7.8 10^3/uL Lymphocytes # (Auto) 2.8 1.0-4.0 10^3/uL Monocytes # (Auto) 0.5 0.0-1.0 10^3/uL Eosinophils # (Auto) 0.1 0.0-0.3 10^3/uL Basophils # (Auto) 0.0 0.0-0.1 10^3/uL Immature Granulocyte # (Auto) 0.0 0.0-0.1 10^3/uL Sodium Level 141 135-145 MMOL/L Potassium Level 3.7 3.6-5.0 MMOL/L Chloride Level 105 98-107 MMOL/L Carbon Dioxide Level 23 21-32 MMOL/L Anion Gap 13 5-14 MMOL/L Blood Urea Nitrogen 18 7-18 MG/DL Creatinine 1.41 H 0.60-1.30 MG/DL Estimat Glomerular Filtration Rate 36 BUN/Creatinine Ratio 13 Glucose Level 148 H 70-105 MG/DL Calcium Level 9.3 8.5-10.1 MG/DL Corrected Calcium 9.5 8.5-10.1 MG/DL Total Bilirubin 0.3 0.1-1.0 MG/DL Aspartate Amino Transf (AST/SGOT) 19 5-34 U/L Alanine Aminotransferase (ALT/SGPT) 20 0-55 U/L Alkaline Phosphatase 68 40-136 U/L Total Protein 6.6 6.4-8.2 GM/DL Albumin 3.7 3.2-4.5 GM/DL My Orders Orders - BARTOLOME CORCORAN MD Ua Culture If Indicated (12/20/20 17:34) Ed Iv/Invasive Line Start (12/20/20 17:34) Ns Iv 500 Ml (Sodium Chloride 0.9%) (12/20/20 17:45) Us Non Ob Pelvis Comp/Transvag (12/20/20 17:46) Medications Given in ED Current Medications Medications Dose Ordered Sig/Christine Route Start Time Stop Time Status Last Admin Dose Admin Sodium Chloride 500 ml @ 0 mls/hr Q0M ONCE IV 12/20/20 17:45 12/20/20 17:46 DC 12/20/20 19:25 0 MLS/HR Vital Signs/I&O 12/20/20 12/20/20 16:55 20:11 Temp 36.6 Pulse 99 80 Resp 20 18 B/P (MAP) 155/76 (102) 144/70 Pulse Ox 99 99 O2 Delivery Room Air Room Air Capillary Refill : Less Than 3 Seconds Blood Pressure Mean: 102 Progress Note : Time: 18:08 Progress Note Patient was seen and examined. Vital signs are stable. Vaginal exam was performed that did not reveal anything except copious amounts of blood and clot in the vaginal vault. Ultrasound is pending. Diagnostic Imaging Diagonstic Imaging: Ultrasound Plain Films/CT/US/NM/MRI: pelvis Comments Discussed with the a and p technician and report reviewed. See report below: NAME: ADITYA SHAH [facility] REC#: [id number] PT STATUS: REG ER : 1940 PHYSICIAN: BARTOLOME CORCORAN MD ADMIT DATE: 12/20/20/ER Signed Date of Exam:12/20/20 US NON OB PELVIS COMP/TRANSVAG PROCEDURE: US Non-ob pelvis comp/trans. TECHNIQUE: Multiple realtime grayscale images were obtained of the pelvis in various projections endovaginally. Transabdominal imaging was also performed. INDICATION: Vaginal bleeding. COMPARISON: CT abdomen and pelvis on 11/30/2020. FINDINGS: Transabdominal: The uterus and adnexa have a unremarkable transabdominal appearance. Transvaginal images were obtained for additional characterization. Transvaginal: The uterus is anteverted and measures 9.0 x 5.9 x 3.9 cm. Echogenic mass is seen in the lower uterine segment measuring 3.5 x 3.2 x 2.5 cm. The endometrium is thickened measuring 1.8 cm. Fluid is seen within the endometrial canal. The ovaries are not visualized due to overlying bowel gas. No adnexal masses. Trace free fluid is seen in the pelvis. IMPRESSION: 1. Mass within the lower uterine segment which may represent a fibroid versus endometrial polyp. Additional fluid is seen within the endometrium. There is generalized endometrial thickening. Recommend tissue sampling for further evaluation. 2. Nonvisualization of the ovaries due to overlying bowel gas. No evidence of adnexal mass. 3. Trace free fluid is seen in the pelvis. Dictated by: Dictated on workstation # [id number] Dict: 12/20/20 1835 Trans: 12/20/20 1840 [facility] [id number] Interpreted by: EDUARDA LEVY DO Electronically signed by: EDUARDA LEVY DO 12/20/20 1840 Departure Communication (Admissions) Time/Spoke to Admitting Phy: 18:45 Dr. Tobias Time/Spoke to Consulting Phy: 18:40 Dr. Estrella Impression Primary Impression: Acute blood loss anemia Additional Impressions: Vaginal bleeding Uterine mass Disposition: ADMITTED INPATIENT Condition: Stable Admissions Decision to Admit Reason: Admit from ER (General) Decision to Admit/Date: Dec 20, 2020 Time/Decision to Admit Time: 18:40 Departure-Patient Inst. Referrals: CHENTE TOBIAS MD (PCP/Family) Primary Care Physician BARTOLOME CORCORAN MD Dec 20, 2020 17:45
[2020-12-20 17:46] LABS: CREATININE SERUM 1.41 MG/DL (0.60-1.30)
[2020-12-20 17:48] LABS: BASOPHILS % (AUTO) 0 % (0-10); EOSINOPHILS # (AUTO) 0.1 10^3/uL (0.0-0.3); EOSINOPHILS % (AUTO) 1 % (0-10); HEMATOCRIT 31 % (35-52); HEMOGLOBIN 10.3 g/dL (11.5-16.0); LYMPHOCYTES # (AUTO) 2.8 10^3/uL (1.0-4.0); LYMPHOCYTES % (AUTO) 27 % (12-44); MEAN CORPUSCULAR HEMOGLOBIN 30 pg (25-34); MEAN CORPUSCULAR HGB CONC 34 g/dL (32-36); MEAN CORPUSCULAR VOLUME 89 fL (80-99); MONOCYTES # (AUTO) 0.5 10^3/uL (0.0-1.0); MONOCYTES % (AUTO) 5 % (0-12); NEUTROPHILS # (AUTO) 6.9 10^3/uL (1.8-7.8); NEUTROPHILS % (AUTO) 67 % (42-75); PLATELET COUNT 260 10^3/uL (130-400); WHITE BLOOD COUNT 10.3 10^3/uL (4.3-11.0)
--- NOTE | 2020-12-20 18:43 | Diagnostic Imaging Report ---
PROCEDURE: US Non-ob pelvis comp/trans. TECHNIQUE: Multiple realtime grayscale images were obtained of the pelvis in various projections endovaginally. Transabdominal imaging was also performed. INDICATION: Vaginal bleeding. COMPARISON: CT abdomen and pelvis on 11/30/2020. FINDINGS: Transabdominal: The uterus and adnexa have a unremarkable transabdominal appearance. Transvaginal images were obtained for additional characterization. Transvaginal: The uterus is anteverted and measures 9.0 x 5.9 x 3.9 cm. Echogenic mass is seen in the lower uterine segment measuring 3.5 x 3.2 x 2.5 cm. The endometrium is thickened measuring 1.8 cm. Fluid is seen within the endometrial canal. The ovaries are not visualized due to overlying bowel gas. No adnexal masses. Trace free fluid is seen in the pelvis. IMPRESSION: 1. Mass within the lower uterine segment which may represent a fibroid versus endometrial polyp. Additional fluid is seen within the endometrium. There is generalized endometrial thickening. Recommend tissue sampling for further evaluation. 2. Nonvisualization of the ovaries due to overlying bowel gas. No evidence of adnexal mass. 3. Trace free fluid is seen in the pelvis. Dictated by: Dictated on workstation # [id number]
[2020-12-20 20:21] VITALS: BP 143/78
[2020-12-20] MEDS ORDERED: LACTATED RINGERS 1,000 ML IV ONE (20:28)
[2020-12-20] MEDS ORDERED: meTOproloL SUCCINATE 50 MG (TOPROL XL) TAB PO SCH (21:00)
[2020-12-20] MEDS ORDERED: medroxyPROGESTERone 10 MG (PROVERA) TAB PO ONE (21:30)
[2020-12-20] MEDS ORDERED: meTOprolol TARTRATE 50 MG (LOPRESSOR) TAB ONE (21:34)
[2020-12-20] MEDS ORDERED: FAMOTIDINE 20 MG (PEPCID) TABLET ONE (22:16)
[2020-12-20] MEDS: LACTATED RINGERS 1,000 ML IV SCH (22:22)
[2020-12-20] MEDS: meTOprolol TARTRATE 50 MG (LOPRESSOR) TAB PO SCH (22:37)
[2020-12-20 23:58] VITALS: BP 99/53
[2020-12-21] VITALS (12 sets, daily range): BP systolic 114–150; BP diastolic 53–87
[2020-12-21 05:53] LABS: BASOPHILS % (AUTO) 0 % (0-10); EOSINOPHILS # (AUTO) 0.2 10^3/uL (0.0-0.3); EOSINOPHILS % (AUTO) 2 % (0-10); HEMATOCRIT 25 % (35-52); HEMOGLOBIN 8.3 g/dL (11.5-16.0); LYMPHOCYTES # (AUTO) 2.7 10^3/uL (1.0-4.0); LYMPHOCYTES % (AUTO) 37 % (12-44); MEAN CORPUSCULAR HEMOGLOBIN 30 pg (25-34); MEAN CORPUSCULAR HGB CONC 33 g/dL (32-36); MEAN CORPUSCULAR VOLUME 91 fL (80-99); MONOCYTES # (AUTO) 0.5 10^3/uL (0.0-1.0); MONOCYTES % (AUTO) 7 % (0-12); NEUTROPHILS % (AUTO) 54 % (42-75); PLATELET COUNT 206 10^3/uL (130-400); WHITE BLOOD COUNT 7.3 10^3/uL (4.3-11.0)
[2020-12-21 06:09] LABS: POTASSIUM 3.8 MMOL/L (3.6-5.0)
[2020-12-21 06:10] LABS: CALCIUM 8.5 MG/DL (8.5-10.1)
[2020-12-21 06:14] LABS: CREATININE SERUM 0.93 MG/DL (0.60-1.30)
[2020-12-21] MEDS: LACTATED RINGERS 1,000 ML IV SCH ×3 (06:31→23:52)
--- NOTE | 2020-12-21 08:19 | Consultation ---
History of Present Illness History of Present Illness Patient Consulted On(daniel/time) 12/21/20 08:15 Date Seen by Provider: Dec 21, 2020 Time Seen by Provider: 08:20 Reason for Visit: PMB History of Present Illness Patient admitted from ER yesterday for PMB, and concerns with the amount of bleeding. Her Hgb was 10 yesterday at admission but has dropped this AM. Patient is stable as far as VS, and symptoms. Allergies and Home Medications Allergies Coded Allergies: NKANo Known Allergies (Verified Allergy, Unknown, 10/16/05) Home Medications Apixaban 5 Mg Tablet, 5 MG PO BID, (Reported) Calcium Carbonate 600 Mg Tablet, 600 MG PO BID, (Reported) Cyanocobalamin (Vitamin B-12) 2,500 Mcg Tablet, 2,500 MCG PO DAILY, (Reported) Cyclobenzaprine HCl 5 Mg Tablet, 5 MG PO Q8H Prescribed by: LORRI CHEN on 08/03/182043 Diltiazem HCl 180 Mg Tab.er.24h, 180 MG PO DAILY, (Reported) Metoprolol Succinate 50 Mg Tab.er.24h, 50 MG PO BID, (Reported) [place] 3 Polyunsat Fatty Acids 1,000 Mg Cap, 1,000 MG PO BID, (Reported) Pravastatin Sodium 20 Mg Tablet, 20 MG PO DAILY, (Reported) Tramadol HCl 50 Mg Tablet, 25-50 MG PO Q4H Prescribed by: LORRI CHEN on 08/03/182043 Patient Home Medication List Home Medication List Reviewed: Yes Past Wpwcwfo-Tflzcu-Eadtjv Hx Patient Social History Tobacco Use?: No Smoking Status: Never a Smoker Substance use?: No Alcohol Use?: No Pt feels they are or have been: No Seasonal Allergies Seasonal Allergies: Yes Past Medical History Surgeries: Yes (COLONOSCOPY) Appendectomy, Tonsillectomy Respiratory: No Cardiac: Yes Atrial Fibrillation, Hypertension Neurological: No Reproductive Disorders: No Genitourinary: No Gastrointestinal: No Musculoskeletal: No Endocrine: No HEENT: No Cancer: No Psychosocial: No Integumentary: No Blood Disorders: No Family Medical History Colon cancer Review of Systems-General Constitutional: see HPI EENTM: see HPI Respiratory: see HPI Gastrointestinal: see HPI Genitourinary: see HPI : No Musculoskeletal: see HPI Skin: see HPI Psychiatric/Neurological: See HPI All Other Systems Reviewed Negative Unless Noted: Yes Physical Exam-General Problems Physical Exam Vital Signs Vital Signs - First Documented 12/20/20 16:55 Temp 36.6 Pulse 99 Resp 20 B/P (MAP) 155/76 (102) Pulse Ox 99 O2 Delivery Room Air Capillary Refill : Less Than 3 Seconds General Appearance: WD/WN HEENT: PERRL/EOMI Neck: non-tender Respiratory: chest non-tender Cardiovascular: regular rate, rhythm Gastrointestinal: normal bowel sounds Assessment/Plan Assessment/Plan Admission Diagnosis/Plan Diagnosis: 80 yo female with PMB Acute blood loss anemia Hx of Afib -on rate regulation medication and eliquis Thickened endometrium P: Plan to hold eliquis and proceed with D and C. Will continue Provera for now, with negative path may consider dosing with e strogen to stop acute bleeding Admission Status: Observation JAYME MACK DO Dec 21, 2020 08:19
--- NOTE | 2020-12-21 08:32 | History & Physical ---
History of Present Illness History of Present Illness Reason for visit/HPI PT IS AN 80 Y/O FEMALE WHO IS KNOWN TO ME FROM CLINIC. IN OCTOBER OF THIS YEAR SHE PRESENTED TO THE OFFICE WITH COMPLAINT OF HEMATURIA, HER EXAM REVEALED AN INFLAMED URETHRA AND SHE WAS TREATED WITH ANTIBIOTICS, DID NOT HAVE CLEARANCE AND WAS SENT TO SEE UROLOGY IN [place]. THE WORK UP WITH THE UROLOGIST WAS NEGATIVE OF 12/16/2020, THE RECOMMENDATION WAS EVALUATION BY FREIGHT CAR INSPECTOR, AND A REFERRAL WAS SENT ON 12/17/2020. UNFORTUNATELY SHE STARTED TO PASS LARGE CLOTS OVER THE HOLIDAY WEEKEND AND SHE WAS FEELING WEAK/LIGHT HEADED AND WAS TAKEN TO THE ER BY FAMILY OVER CONCERN FOR THE LARGE BLOOD CLOTS SHE WAS PASSING VAGINALLY. SHE WAS FOUND TO BE ANEMIC AND HAD A LARGE AMOUNT OF BLOOD IN HER VAGINAL VAULT ON EXAM. CONSULT TO FREIGHT CAR INSPECTOR FOR URGENT EVALUATION SINCE SHE IS TAKING ELIQUIS. Date of Admission Dec 20, 2020 at 18:54 Date Seen by a Provider: Dec 22, 2020 Time Seen by a Provider: 08:00 I consulted on this patient on 12/21/20 08:31 Attending Physician Mikael Estrella DO Admitting Physician Chente Tobias MD Consult Allergies and Home Medications Allergies Coded Allergies: NKANo Known Allergies (Verified Allergy, Unknown, 10/16/05) Home Medications Apixaban 5 Mg Tablet, 5 MG PO BID, (Reported) Last Action: Held Calcium Carbonate 600 Mg Tablet, 600 MG PO BID, (Reported) Last Action: Held Cyanocobalamin (Vitamin B-12) 2,500 Mcg Tablet, 2,500 MCG PO DAILY, (Reported) Last Action: Held Cyclobenzaprine HCl 5 Mg Tablet, 5 MG PO Q8H Prescribed by: LORRI CHEN on 08/03/182043 Last Action: Held Diltiazem HCl 180 Mg Tab.er.24h, 180 MG PO DAILY, (Reported) Last Action: Reviewed Metoprolol Succinate 50 Mg Tab.er.24h, 50 MG PO BID, (Reported) Last Action: Reviewed [place] 3 Polyunsat Fatty Acids 1,000 Mg Cap, 1,000 MG PO BID, (Reported) Last Action: Held Pravastatin Sodium 20 Mg Tablet, 20 MG PO DAILY, (Reported) Last Action: Held Tramadol HCl 50 Mg Tablet, 25-50 MG PO Q4H Prescribed by: LORRI CHEN on 08/03/182043 Last Action: Held Patient Home Medication List Home Medication List Reviewed: Yes Past Fwcsvpp-Bihicp-Czystx Hx Past Med/Social Hx: Reviewed Nursing Past Med/Soc Hx, Reviewed and Corrections made Patient Social History Marrital Status: Living Status: LIVES AT HOME BY SELF Employed/Student: retired Alcohol Use: Denies Use Smoking Status: Never a Smoker 2nd Hand Smoke Exposure: No Physical Abuse Screen: No Sexual Abuse: No Recent Foreign Travel: No Contact w/other who traveled: No Recent Hopitalizations: No Recent Infectious Disease Expo: No Immunizations Up To Date Date of Pneumonia Vaccine: November 05, 2007 Seasonal Allergies Seasonal Allergies: Yes Past Medical History Surgeries: Appendectomy, Tonsillectomy Currently Using CPAP: No Currently Using BIPAP: No Cardiac: Atrial Fibrillation, Hypertension : No Reproductive: No Sexually Transmitted Disease: No HIV/AIDS: No Menopausal POST MENOPAUSAL BLEEDING Are Your Blood Sugars Over 250: No Loss of Vision: Denies Hearing Impairment: Denies History of Blood Disorders: No Family History Reviewed and Corrections made Colon cancer Heart Disease, Hypertension Review of Systems Constitutional: No fever, No malaise; weakness EENTM: No hoarseness, No throat pain Respiratory: No cough, No dyspnea on exertion, No short of breath Cardiovascular: No palpitations Gastrointestinal: No abdominal pain, No constipation, No diarrhea, No loss of appetite, No nausea, No vomiting Genitourinary: hematuria, other (PASSAGE OF LARGE CLOTS VAGINALLY) Musculoskeletal: no symptoms reported Skin: no symptoms reported Psychiatric/Neurological: Denies Anxiety, Denies Depressed; Weakness All Other Systems Reviewed Negative Unless Noted: Yes Physical Exam Vital Signs Vital Signs - First Documented 12/20/20 16:55 Temp 36.6 Pulse 99 Resp 20 B/P (MAP) 155/76 (102) Pulse Ox 99 O2 Delivery Room Air Capillary Refill : Less Than 3 Seconds Height, Weight, BMI Height: 5'3.50" Weight: 143lbs. 0.0oz. [id number]; 24.00 BMI Method:Estimated General Appearance: No Apparent Distress, WD/WN Eyes: Bilateral Eye Normal Inspection, Bilateral Eye PERRL, Bilateral Eye EOMI HEENT: PERRL/EOMI, Pharynx Normal Neck: Full Range of Motion, Normal Inspection, Non Tender, Supple Respiratory: Chest Non Tender, Lungs Clear, Normal Breath Sounds, No Accessory Muscle Use, No Respiratory Distress Cardiovascular: Regular Rate, Rhythm, Normal Peripheral Pulses Gastrointestinal: Normal Bowel Sounds, No Pulsatile Mass, Non Tender, Soft Rectal: Deferred Genital/Rectal: Other (NOT PERFORMED - PT TO HAVE D AND C TODAY) Back: Normal Inspection, No CVA Tenderness, No Vertebral Tenderness Extremity: Normal Capillary Refill, Normal Range of Motion, Non Tender, No Calf Tenderness Neurologic/Psychiatric: Alert, Oriented x3, No Motor/Sensory Deficits, Normal Mood/Affect, optical technician II-XII Norm as Tested Skin: Normal Color Lymphatic: No Adenopathy Assessment/Plan Assessment and Plan POST-MENOPAUSAL BLEEDING ACUTE BLOOD LOSS ANEMIA CHRONIC PAROXYSMAL ATRIAL FIBRILLATION CHRONIC ANTICOAGULATION POST-MENOPAUSAL BLEEDING WITH ASSOCIATED ACUTE BLOOD LOSS ANEMIA - TYPE AND SCREEN FOR POSSIBLE TRANSFUSION IF BLOOD LOSS IS EXCESSIVE DURING D AND C - DEFER TO DR. ESTRELLA WITH PLANS FOR D AND C AND ENDOMETRIAL BIOPSY TODAY CHRONIC PAROXYSMAL ATRIAL FIBRILLATION - HOLD ELIQUIS FOR NOW - RESTART METOPROLOL AND CARDIZEM CHRONIC ANTICOAGULATION - HOLD FOR THE NEXT 3 DAYS - WILL DISCUSS WITH CARDIOLOGY FURTHER PLANS. Admission Diagnosis POST-MENOPAUSAL BLEEDING ACUTE BLOOD LOSS ANEMIA CHRONIC PAROXYSMAL ATRIAL FIBRILLATION CHRONIC ANTICOAGULATION Admission Status: Observation CHENTE TOBIAS MD Dec 21, 2020 08:31
[2020-12-21] MEDS ORDERED: LACTATED RINGERS 1,000 ML IV PRN (09:00)
[2020-12-21] MEDS: meTOprolol TARTRATE 50 MG (LOPRESSOR) TAB PO SCH ×2 (09:14→21:04)
[2020-12-21] MEDS: FAMOTIDINE 20 MG (PEPCID) TABLET PO SCH (09:14)
[2020-12-21] MEDS ORDERED: proPOfol 200 MG/20 ML (DIPRIVAN) VIAL IV ONE (11:35)
[2020-12-21] MEDS ORDERED: ONDANSETRON 4 MG/2 ML (SDV) Z0FRAN ONE (11:35)
[2020-12-21] MEDS ORDERED: LIDOCAINE PF 2% 5 ML (XYLOCAINE) VIAL ONE (11:35)
[2020-12-21] MEDS ORDERED: fentaNYL INJ 100 MCG/2 ML AMP ONE (11:35)
[2020-12-21] MEDS ORDERED: BUPIVACAINE 0.25% 30 ML (SENSORCAINE) VIAL ONE (12:00)
[2020-12-21] MEDS ORDERED: LIDOCAINE/EPI 1%-1:100,000 (XYLOCAINE) 20ML ONE (12:00)
[2020-12-21] MEDS ORDERED: SEVOFLURANE (ULTANE) 15 ML INHAL SOLN ONE (12:28)
[2020-12-21] MEDS ORDERED: morphine INJ 10 MG/ML 1ML (SYR OR VIAL) IVP ONE (12:45)
[2020-12-21] MEDS ORDERED: ONDANSETRON 4 MG/2 ML (SDV) Z0FRAN IVP PRN (12:45)
[2020-12-21 15:51] LABS: HEMOGLOBIN 8.6 g/dL (11.5-16.0)
--- NOTE | 2020-12-21 16:50 | OPERATIVE REPORT ---
DATE OF SERVICE: PREOPERATIVE DIAGNOSES: 1. An 80-year-old female with postmenopausal bleeding. 2. Thickened endometrium. POSTOPERATIVE DIAGNOSES: 1. An 80-year-old female with postmenopausal bleeding. 2. Thickened endometrium. PROCEDURE: D and C. SURGEON: Jayme Mack DO ANESTHESIA: LMA general. ESTIMATED BLOOD LOSS: Minimal. URINE OUTPUT: 50 mL clear at the end of the procedure. FLUIDS: 600 mL lactated Ringer's solution. FINDINGS: Atrophic external female genitalia and vaginal mucosa appropriate for 80-year-old age female in moderate amount of endometrial tissue collected on curetting. SPECIMEN SENT: Endometrial curettings. INDICATIONS FOR PROCEDURE: This 80-year-old female patient was admitted from the emergency room last night for heavy bleeding. She was on Eliquis and this was stopped to help with her bleeding. I discussed with the patient this morning, started on Provera to help slow down the bleeding as well as performing a D and C due to thickened endometrium on ultrasound. Risks of the procedure were discussed with the patient in detail. After all of her questions were answered, consent was obtained, the patient was taken to the operating room. OPERATIVE REPORT IN DETAIL: Once in the operating room, general anesthesia was found to be adequate. She was placed in the dorsal lithotomy position, prepped and draped in normal sterile fashion. A timeout was performed. A weighted speculum inserted to the patient's vagina. Right angle retractor was used to visualized the cervix. It was grasped at 12 o'clock position using a single tooth tenaculum. I then performed paracervical block at 3 and 9 o'clock positions on the cervix. Care was taken to aspirate before injecting 5 mL of 0.25% Marcaine injected into each site. I then gently sound the uterine cavity, depth was found to be 8 cm. I then gently dilated the cervix using Hanks dilators to maximum dilatation approximately 1 cm, at which point I performed a gentle curettage of all endometrial cavity lining and collect this and send this as endometrial curettings, after which there was no active bleeding noted from any of my dissection planes. I removed the single tooth tenaculum. There was no active bleeding noted from this side either. All the other instruments were removed from the patient's vagina. The bladder is drained at the start of the procedure using straight catheterization. Lap and sponge counts were correct at the end of the procedure. Instrument counts correct as well. Job ID: [id number] DocumentID: [id number] Dictated Date: 12/21/2020 13:12:22 Station Installation Supervisor Date: 12/21/2020 15:52:21 Dictated By: JAYME MACK DO
[2020-12-22 01:16] VITALS: BP 108/56
[2020-12-22 05:52] VITALS: BP 117/59
--- NOTE | 2020-12-22 07:57 | Progress Note ---
Standard Progress Note Progress Notes/Assess & Plan Date Seen by a Provider: Dec 22, 2020 Time Seen by a Provider: 08:00 Progress/Assessment & Plan Patient doing better today. Denies lightheadedness/dizzyness, asymptomatic with ambulation. Repeat CBC yesterday was stable. She reports scant vaginal bleeding now. Vital Sign - Last 24 Hours 12/21/20 12/21/20 12/21/20 12/21/20 08:45 11:27 12:33 12:33 Temp 36.6 36.2 Pulse 75 77 Resp 18 12 B/P (MAP) 133/66 (88) 145/83 (103) Pulse Ox 97 99 O2 Delivery Room Air OxyMask OxyMask O2 Flow Rate 6 6 12/21/20 12/21/20 12/21/20 12/21/20 12:42 12:45 12:50 12:51 Resp 18 18 B/P (MAP) 137/75 (95) 137/72 (93) Pulse Ox 99 100 O2 Delivery OxyMask OxyMask OxyMask OxyMask O2 Flow Rate 6 6 6 6 12/21/20 12/21/20 12/21/20 12/21/20 13:00 13:02 13:10 13:11 Resp 18 18 B/P (MAP) 140/72 (94) 150/87 (108) Pulse Ox 96 93 O2 Delivery OxyMask Room Air Room Air Room Air O2 Flow Rate 3 12/21/20 12/21/20 12/21/20 12/21/20 13:20 13:20 13:30 13:33 Temp 36.4 36.4 Pulse 74 75 Resp 18 16 B/P (MAP) 148/84 (105) 145/77 (99) Pulse Ox 95 98 O2 Delivery Nasal Cannula Nasal Cannula Nasal Cannula O2 Flow Rate 2 2 2.00 12/21/20 12/21/20 12/21/20 12/21/20 14:30 17:00 17:20 19:00 Temp 36.8 36.8 Pulse 99 92 109 Resp 16 16 B/P (MAP) 120/65 (83) 125/57 (79) Pulse Ox 97 95 O2 Delivery Nasal Cannula Room Air Room Air O2 Flow Rate 2.00 12/21/20 12/21/20 12/21/20 12/22/20 19:20 20:17 21:02 01:00 Temp 36.7 Pulse 146 100 103 Resp 20 B/P (MAP) 115/62 (79) Pulse Ox 94 O2 Delivery Room Air Room Air 12/22/20 12/22/20 01:16 05:52 Temp 37.1 36.7 Pulse 117 106 Resp 18 18 B/P (MAP) 108/56 (73) 117/59 (78) Pulse Ox 91 96 O2 Delivery Room Air Room Air Intake and Output 12/21/20 12/21/20 12/22/20 15:00 23:00 07:00 Intake Total 1450 ml 710 ml Output Total 50 ml 400 ml 800 ml Balance 1400 ml 310 ml -800 ml Diagnosis: PMB- path pending Acute blood loss anemia- stable P: DC today pending attending approval, will speak with Dr. Tobias CBC ordered this AM to confirm hemodynamic stability prior to discharge. JAYME MACK DO Dec 22, 2020 07:57
[2020-12-22 08:00] VITALS: BP 135/61
[2020-12-22 08:50] LABS: BASOPHILS % (AUTO) 0 % (0-10); EOSINOPHILS % (AUTO) 0 % (0-10); HEMATOCRIT 25 % (35-52); HEMOGLOBIN 8.1 g/dL (11.5-16.0); LYMPHOCYTES # (AUTO) 1.5 10^3/uL (1.0-4.0); LYMPHOCYTES % (AUTO) 11 % (12-44); MEAN CORPUSCULAR HEMOGLOBIN 30 pg (25-34); MEAN CORPUSCULAR HGB CONC 33 g/dL (32-36); MEAN CORPUSCULAR VOLUME 92 fL (80-99); MEAN PLATELET VOLUME 10.2 fL (9.0-12.2); MONOCYTES # (AUTO) 0.3 10^3/uL (0.0-1.0); MONOCYTES % (AUTO) 2 % (0-12); NEUTROPHILS # (AUTO) 11.9 10^3/uL (1.8-7.8); NEUTROPHILS % (AUTO) 85 % (42-75); PLATELET COUNT 241 10^3/uL (130-400)
[2020-12-22] MEDS ORDERED: PEDI18TA2 PO (09:33)
[2020-12-22] MEDS ORDERED: APIX5TAB PO (09:33)
--- NOTE | 2020-12-22 09:34 | Discharge Inst-Simple/Standard ---
Discharge Inst-Standard Reconcile Patient Problems Problems Reviewed?: Yes Patient Instructions/Follow Up Plan of Care/Instructions/FU: 1 [facility] [address] MACK Activity as Tolerated: Yes Discharge Diet: Regular Diet Return to The Hospital For: ANY CONCERN FOR WORSENING BLEEDING, DIZZINESS, WEAKNESS, OR OTHER LIFETHREATENING ILLNESS OR INJURY CHENTE WILCOX MD Dec 22, 2020 09:34
--- NOTE | 2020-12-22 09:35 | Discharge Summary ---
Diagnosis/Chief Complaint Date of Admission Dec 20, 2020 at 18:54 Date of Discharge Discharge Date: Dec 22, 2020 Discharge Time: 1000 Reason Hospital Visit PT IS AN 80 Y/O FEMALE WHO IS KNOWN TO ME FROM CLINIC. IN OCTOBER OF THIS YEAR SHE PRESENTED TO THE OFFICE WITH COMPLAINT OF HEMATURIA, HER EXAM REVEALED AN INFLAMED URETHRA AND SHE WAS TREATED WITH ANTIBIOTICS, DID NOT HAVE CLEARANCE AND WAS SENT TO SEE UROLOGY IN [place]. THE WORK UP WITH THE UROLOGIST WAS NEGATIVE OF 12/16/2020, THE RECOMMENDATION WAS EVALUATION BY SHEET METAL TECHNICIAN, AND A REFERRAL WAS SENT ON 12/17/2020. UNFORTUNATELY SHE STARTED TO PASS LARGE CLOTS OVER THE HOLIDAY WEEKEND AND SHE WAS FEELING WEAK/LIGHT HEADED AND WAS TAKEN TO THE ER BY FAMILY OVER CONCERN FOR THE LARGE BLOOD CLOTS SHE WAS PASSING VAGINALLY. SHE WAS FOUND TO BE ANEMIC AND HAD A LARGE AMOUNT OF BLOOD IN HER VAGINAL VAULT ON EXAM. CONSULT TO SHEET METAL TECHNICIAN FOR URGENT EVALUATION SINCE SHE IS TAKING ELIQUIS. Discharge Summary Discharge Physical Examination Allergies: Coded Allergies: NKANo Known Allergies (Verified Allergy, Unknown, 10/16/05) Vitals & I&Os Vital Signs Date Time Temp Pulse Resp B/P (MAP) Pulse Ox O2 Delivery O2 Flow Rate FiO2 12/22/20 07:00 100 12/22/20 05:52 36.7 18 117/59 (78) 96 Room Air 12/21/20 14:30 2.00 Hospital Course Pending Labs Laboratory Tests 12/22/20 08:30: White Blood Count 14.0, Red Blood Count 2.69, Hemoglobin 8.1, Hematocrit 25, Mean Corpuscular Volume 92, Mean Corpuscular Hemoglobin 30, Mean Corpuscular Hemoglobin Concent 33, Red Cell Distribution Width 13.9, Platelet Count 241, Mean Platelet Volume 10.2, Immature Granulocyte % (Auto) 1, Neutrophils (%) (Auto) 85, Lymphocytes (%) (Auto) 11, Monocytes (%) (Auto) 2, Eosinophils (%) (Auto) 0, Basophils (%) (Auto) 0, Neutrophils # (Auto) 11.9, Lymphocytes # (Auto) 1.5, Monocytes # (Auto) 0.3, Eosinophils # (Auto) 0.0, Basophils # (Auto) 0.0, Immature Granulocyte # (Auto) 0.2 Discharge Instructions to patient/family Please see electronic discharge instructions given to patient. Discharge Medications Reviewed and agree with Discharge Medication list on patient's Discharge I nstruction sheet CHENTE WILCOX MD Dec 22, 2020 09:35
[2020-12-22] MEDS: FAMOTIDINE 20 MG (PEPCID) TABLET PO SCH (09:41)
[2020-12-22] MEDS: meTOprolol TARTRATE 50 MG (LOPRESSOR) TAB PO SCH (09:41)
[2020-12-22 12:40] VITALS: BP 117/65
[2020-12-22 13:25] VITALS: BP 117/65
--- NOTE | 2020-12-22 13:55 | Anesthesia-General Post-Op ---
General Patient Condition Mental Status/LOC: Same as Preop Cardiovascular: Satisfactory Nausea/Vomiting: Absent Respiratory: Satisfactory Pain: Controlled Complications: Absent Post Op Complications Complications None Follow Up Care/Instructions Patient Instructions None needed. Anesthesia/Patient Condition Patient Condition Patient is doing well, no complaints, stable vital signs, no apparent adverse anesthesia problems. No complications reported per nursing. WILLIAM OTOOLE CRNA Dec 22, 2020 13:55
== END 2020-12-22 13:25 | disposition home or self-care (01) ==
LOC: EDUNIT# 16:47 → ER 16:48 → UNDOADMOB 18:54 → WS 18:54 → SDC 20:15 → UNDODISOB 12-22 13:25
PROVIDERS: ATTEND Obstetrics & Gynecology
DX: D62 Acute posthemorrhagic anemia (principal); I48.20 Chronic atrial fibrillation, unspecified; N85.8 Other specified noninflammatory disorders of uterus; J30.2 Other seasonal allergic rhinitis; I10 Essential (primary) hypertension; Z79.899 Other long term (current) drug therapy; Z79.891 Long term (current) use of opiate analgesic; Z79.01 Long term (current) use of anticoagulants
CPT/HCPCS: 58120; 76830; 76856; 80048; 80053; 85014; 85018; 85025 ×3; 86850; 86900; 86901; 87081; 94664; 99284; G0378; 36415

== ENCOUNTER → 2021-05-31 | Outpatient (CLI) | payer MEDICARE, OTHER ==
[~2021-05-31] MED LIST changes: +PEDI18TA2 PO
--- NOTE | 2021-05-31 10:34 | Diagnostic Imaging Report ---
INDICATION: 81-year-old asymptomatic postmenopausal female COMPARISON: 07/12/2012 FINDINGS: AP Spine L1-L4: [BMD (g/cm2): 1.254] [T-Score: 0.4] [Z-Score: 2.3] [BMD Previous: 1.124] [BMD % Change: 11.6] LT Hip Neck: [BMD (g/cm2): 0.677] [T-Score: -2.6] [Z-Score: -0.3] LT Hip Total: [BMD (g/cm2):0.780] [T-Score:-1.8] [Z-Score: 0.4] [BMD Previous: 0.746] [BMD % Change: 4.6] RT Hip Neck: [BMD (g/cm2):0.723] [T-Score:-2.3] [Z-Score:0.0] RT Hip Total: [BMD (g/cm2):0.811] [T-score:-1.6] [Z-Score:0.6] [BMD Previous:0.788] [BMD % Change:2.9] *Indicates significant change from prior examination based on 95% confidence level. World Health Organization criteria for BMD interpretation classify patients as Normal (T-score at or above -1.0), Osteopenic (T-score between -1.0 and -2.5) or Osteoporotic (T-score at or below -2.5). LIMITATIONS AND MODIFICATION: None. FRACTURE RISK (FRAX SCORE): Not applicable as patient meets criteria for osteoporosis. IMPRESSION: 1. Osteoporosis. 2. No significant change in bone mineral density since prior examination. 3. See below National Osteoporosis Foundation guidelines on when to potentially initiate pharmacologic therapy. Based on the National Osteoporosis Foundation Guidelines, pharmacologic treatment should be initiated in any of the following, unless clinical conditions suggest otherwise: * Any patient with prior fragility fracture of the hip or vertebrae. A spine fracture indicates 5X risk for subsequent spine fracture and 2X risk for subsequent hip fracture. * Osteoporosis (T-score <-2.5). * Postmenopausal women and men age 50 and older with low bone mass/osteopenia (T-score between -1.0 and -2.5) by DXA and 10-year major osteoporotic fracture greater than 20% or a 10-year probability of hip fracture greater than 3%. These fracture risks are supplied above in the FRAX score, if applicable. * Clinician judgement and/or patient preferences may indicate treatment for people with 10-year fracture probabilities above or below these levels. Dictated by: Dictated on workstation # [id number]
--- NOTE | 2021-05-31 11:58 | Diagnostic Imaging Report ---
INDICATION: Routine screening. Comparison is made with prior mammogram from 11/02/2017 and 09/07/2016. 2-D and 3-D bilateral screening mammography was performed with CAD. Scattered fibroglandular densities are identified bilaterally. Benign nodules and benign calcifications are again noted. No spiculated mass or malignant-appearing microcalcifications are seen. Axillae are unremarkable. IMPRESSION: BI-RADS Category 2 No mammographic features suspicious for malignancy are identified. ACR BI-RADS Category 2: Benign findings. Result letter will be mailed to the patient. Note: At least 10% of breast cancer is not imaged by mammography. Dictated by: Dictated on workstation # [id number]
== END ==
LOC: RAD 08:45
PROVIDERS: ATTEND Nurse Practitioner Family
DX: Z12.31 Encounter for screening mammogram for malignant neoplasm of breast (principal); M81.0 Age-related osteoporosis without current pathological fracture; M85.80 Other specified disorders of bone density and structure, unspecified site; Z78.0 Asymptomatic menopausal state
CPT/HCPCS: 77063; 77067; 77080

== ENCOUNTER → 2021-12-12 | Outpatient (CLI) | payer MEDICARE, OTHER ==
--- NOTE | 2021-12-12 14:50 | Diagnostic Imaging Report ---
Indication: Chronic left hip pain. Time of Exam: 1:55 PM 2 views of the left hip were obtained. Femoral acetabular alignment is normal. The joint space is well maintained. Femoral head and neck are intact. No fractures are seen. Impression: No acute bony abnormality is detected. Dictated by: Dictated on workstation # [id number]
== END ==
LOC: RAD 13:39
PROVIDERS: ATTEND Nurse Practitioner Family
DX: M25.552 Pain in left hip (principal); G89.29 Other chronic pain
CPT/HCPCS: 73502

== ENCOUNTER → 2021-12-15 | Outpatient (CLI) | payer MEDICARE, OTHER ==
--- NOTE | 2021-12-15 12:07 | Diagnostic Imaging Report ---
PROCEDURE: MRI left joint lower extremity without contrast. TECHNIQUE: Multiplanar, multisequence non contrast-enhanced MRI of the left lower extremity was accomplished. INDICATION: Left hip pain. COMPARISON: None available. FINDINGS: Left hip: No hip effusion. Chondral thinning is present throughout the hip but there are no sites of full-thickness articular cartilage loss. No chondral labral separation or para-labral cyst. There may be some degenerative truncation in the anterior aspect of the labrum. Bones: No avascular necrosis in the femoral heads. No bone marrow edema that would indicate stress fracture in the pelvis or proximal femurs. No sacroiliitis. Muscles and tendons: The bilateral distal iliopsoas tendons are intact. Proximal hamstring complexes are normal. There is asymmetric edema involving the deep surface of the left gluteus medius and minimus, likely due to a combination of tendinopathy and low-grade partial-thickness tear. Adductor musculature is normal. Other: No free pelvic fluid. No pelvic or inguinal lymphadenopathy. The uterus is normal in appearance. IMPRESSION: 1. Tendinopathy and low-grade partial-thickness tearing in the deep surface of the left gluteus medius and minimus insertion on the greater trochanter. Correlation for focal tenderness is advised. 2. Mild degenerative articular cartilage thinning throughout the left hip. No sites of full-thickness articular cartilage loss. Dictated by: Dictated on workstation # [id number]
== END ==
LOC: RAD 08:52
PROVIDERS: ATTEND Nurse Practitioner Family
DX: M16.12 Unilateral primary osteoarthritis, left hip (principal); S76.012A Strain of muscle, fascia and tendon of left hip, initial encounter; X58.XXXA Exposure to other specified factors, initial encounter
CPT/HCPCS: 73721

== ENCOUNTER 2022-01-12 12:52 | Outpatient (RCR) | payer MEDICARE, OTHER | END 2022-01-15 | disposition home or self-care (01) | PROVIDERS: ATTEND Nurse Practitioner Family | DX: S76.012A Strain of muscle, fascia and tendon of left hip, initial encounter (principal); X58.XXXA Exposure to other specified factors, initial encounter ==

== ENCOUNTER → 2022-02-03 | Outpatient (CLI) | payer MEDICARE, OTHER | LOC: CARD 14:30 | PROVIDERS: ATTEND Internal Medicine Cardiovascular Disease | DX: I10 Essential (primary) hypertension (principal); I25.10 Atherosclerotic heart disease of native coronary artery without angina pectoris | CPT/HCPCS: 93306 ==

== ENCOUNTER → 2022-02-15 | Outpatient (RCR) | payer MEDICARE, OTHER ==
[~2022-02-15] MED LIST changes: +AMIO200T65 PO; +CHOL10007 PO; +DILT-27 PO; +DILT120C88 PO; +DILT180C85 PO; +FAMO20TA5 PO; +FERR-84 PO; +FOLI1TAB33 PO; +LOSA50TA63 PO; +METO50TA15 PO; +OMEP40CA6 PO; +RIVA20TA PO
== END | disposition home or self-care (01) ==
PROVIDERS: ATTEND Nurse Practitioner Family
DX: S76.012D Strain of muscle, fascia and tendon of left hip, subsequent encounter (principal); X58.XXXD Exposure to other specified factors, subsequent encounter

== ENCOUNTER 2022-02-18 15:32 | Emergency (ER) | payer MEDICARE, OTHER ==
[~2022-02-18 15:32] MED LIST changes: -AMIO200T65 PO; -CHOL10007 PO; -DILT-27 PO; -DILT120C88 PO; -DILT180C85 PO; -FAMO20TA5 PO; -FERR-84 PO; -FOLI1TAB33 PO; -LOSA50TA63 PO; -METO50TA15 PO; -OMEP40CA6 PO; -RIVA20TA PO
[2022-02-18] MEDS ORDERED: ASPIRIN 81 MG CHEW (CHILDREN'S ASA) PO ONE (16:15)
--- NOTE | 2022-02-18 16:23 | ED Cardiac General ---
History of Present Illness General Chief Complaint: Cardiac/General Problems Stated Complaint: BLOOD PRESSURE ISSUES Nursing Triage Note: PT AMB TO [facility] 4 WITH C/O INCREASE IN BP TODAY AND A COUPLE TIMES EARLIER IN THE WEEK. PT STATES DR ALANIZ ADDED LISINOPRIL TO DAILY MEDICATIONS A COUPLE WEEKS AGO Source: patient Exam Limitations: no limitations History of Present Illness Date Seen by Provider: Feb 18, 2022 Time Seen by Provider: 15:58 Initial Comments Patient to ER by private conveyance from home with chief complaint that today earlier she was starting to do some windows and got a funny feeling in her chest and felt like something was off so she checked her blood pressure is 120/100. She checked it several more times and it just kept going up. She noticed that she had some high blood pressure in the last couple weeks and Dr. Alaniz started her on a blood pressure medicine that started with an L. She says she did take it last night. She is also on Cardizem and metoprolol for her atrial fibrillation as well as a blood thinner. She has no history of coronary disease. She does have hyperlipidemia but does not take a statin. She has no history of smoking diabetes or personal or family primary coronary disease and early onset. She is not having any chest pain. She just describes a funny feeling in the middle of her chest that is not radiating. No numbness or tingling in her arms neck or jaw. The patient had a stress test in 2019 demonstrating no significant ischemia. EF of 90%. Echocardiogram by Dr. Alaniz from 2018 demonstrating EF of 55 to 65% wi th grade 2 diastolic dysfunction. Allergies and Home Medications Allergies Coded Allergies: NKANo Known Allergies (Verified Allergy, Unknown, 10/16/05) Patient Home Medication List Home Medication List Reviewed: Yes Apixaban (Eliquis) 5 Mg Tablet, 5 MG PO BID Prescribed by: CHENTE WILCOX on 12/22/20 0933 Calcium Carbonate (Calcium) 600 Mg Tablet, 600 MG PO BID, (Reported) Entered as Reported by: CONCETTA HERNANDEZ on 04/04/18 08 Cyanocobalamin (Vitamin B-12) (Vitamin B12) 2,500 Mcg Tablet, 2,500 MCG PO DAILY, (Reported) Entered as Reported by: CONCETTA HERNANDEZ on 04/04/18 08 Diltiazem HCl (Diltiazem ER) 180 Mg Tab.er.24h, 180 MG PO DAILY, (Reported) Entered as Reported by: CONCETTA HERNANDEZ on 04/04/18830 Metoprolol Succinate (Metoprolol Succinate) 50 Mg Tab.er.24h, 50 MG PO BID, (Reported) Entered as Reported by: CONCETTA HERNANDEZ on 04/04/18830 [place] 3 Polyunsat Fatty Acids (Fish Oil 1,000 mg Capsule) 1,000 Mg Cap, 1,000 MG PO BID, (Reported) Entered as Reported by: CONCETTA HERNANDEZ on 04/04/18830 Pedi Mv No.79/Ferrous Fumarate (Flintstones with Iron Tab Chew) 18 Mg Tab.chew, 18 MG PO BID Prescribed by: CHENTE WILCOX on 12/22/20932 Pravastatin Sodium (Pravastatin Sodium) 20 Mg Tablet, 20 MG PO DAILY, (Reported) Entered as Reported by: CONCETTA HERNANDEZ on 04/04/18830 Tramadol HCl (Ultram) 50 Mg Tablet, 25-50 MG PO Q4H Prescribed by: LORRI CHEN on 08/03/182043 Review of Systems Review of Systems Constitutional: No chills, No diaphoresis, No fever, No malaise EENTM: No Blurred Vision, No Double Vision Respiratory: Denies Cough, Denies Shortness of Air Cardiovascular: See HPI; Denies Chest Pain, Denies Edema Gastrointestinal: Denies Abdomen Distended, Denies Abdominal Pain Genitourinary: See HPI Musculoskeletal: see HPI Skin: no symptoms reported, see HPI Psychiatric/Neurological: No Symptoms Reported Endocrine: No Symptoms Reported All Other Systems Reviewed Negative Unless Noted: Yes Past Xijqiph-Dhfdld-Gglvqr Hx Patient Social History Tobacco Use?: No Use of E-Cig and/or Vaping dev: No Substance use?: No Alcohol Use?: No Pt feels they are or have been: No Immunizations Up To Date Influenza Vaccine Up-to-Date: Yes; Up-to-Date First/Initial COVID19 Vaccinat: 2020 Second COVID19 Vaccination Gregg: 2020 Seasonal Allergies Seasonal Allergies: Yes Past Medical History Surgery/Hospitalization HX: HTN, AFIB, APPY, D&C Surgeries: Yes (COLONOSCOPY) Appendectomy, Tonsillectomy Respiratory: No Currently Using CPAP: No Currently Using BIPAP: No Cardiac: Yes Atrial Fibrillation, Hypertension Neurological: No Reproductive Disorders: No GASKET FORMER History: Menopausal Sexually Transmitted Disease: No HIV/AIDS: No Genitourinary: No Gastrointestinal: No Musculoskeletal: No Endocrine: No HEENT: No Loss of Vision: Denies Hearing Impairment: Denies Cancer: No Psychosocial: No Integumentary: No Blood Disorders: No Family Medical History Colon cancer Heart Disease, Hypertension Physical Exam Vital Signs Vital Signs - First Documented 02/18/22 15:38 Temp 36.7 Pulse 81 Resp 18 B/P (MAP) 182/118 (139) Capillary Refill : Height, Weight, BMI Height: 5'3.50" Weight: 143lbs. 0.0oz. 64.833824vd; 24.00 BMI Method:Estimated General Appearance: No Apparent Distress, WD/WN HEENT: PERRL/EOMI, TMs Normal, Normal ENT Inspection, Pharynx Normal, Moist Mucous Membranes Neck: Full Range of Motion, Normal Inspection, Non Tender Respiratory: Chest Non Tender, Lungs Clear, Normal Breath Sounds Cardiovascular: Regular Rate, Rhythm, No Edema, Normal Peripheral Pulses Gastrointestinal: Normal Bowel Sounds, Non Tender, Soft Extremity: Normal Capillary Refill, Normal Inspection, No Pedal Edema Neurologic/Psychiatric: Alert, Oriented x3 Skin: Normal Color, Warm/Dry Progress/Results/Core Measures Results/Orders Lab Results Laboratory Tests Test 02/18/22 16:15 02/18/22 18:25 Range/Units White Blood Count 7.6 4.3-11.0 10^3/uL Red Blood Count 5.18 H 3.80-5.11 10^6/uL Hemoglobin 15.3 11.5-16.0 g/dL Hematocrit 45 35-52 % Mean Corpuscular Volume 86 80-99 fL Mean Corpuscular Hemoglobin 30 25-34 pg Mean Corpuscular Hemoglobin Concent 34 32-36 g/dL Red Cell Distribution Width 12.7 10.0-14.5 % Platelet Count 226 130-400 10^3/uL Mean Platelet Volume 10.6 9.0-12.2 fL Immature Granulocyte % (Auto) 0 % Neutrophils (%) (Auto) 50 42-75 % Lymphocytes (%) (Auto) 38 12-44 % Monocytes (%) (Auto) 8 0-12 % Eosinophils (%) (Auto) 3 0-10 % Basophils (%) (Auto) 0 0-10 % Neutrophils # (Auto) 3.8 1.8-7.8 10^3/uL Lymphocytes # (Auto) 2.9 1.0-4.0 10^3/uL Monocytes # (Auto) 0.6 0.0-1.0 10^3/uL Eosinophils # (Auto) 0.2 0.0-0.3 10^3/uL Basophils # (Auto) 0.0 0.0-0.1 10^3/uL Immature Granulocyte # (Auto) 0.0 0.0-0.1 10^3/uL Prothrombin Time 12.6 12.2-14.7 SEC INR Comment 0.9 0.8-1.4 Sodium Level 141 135-145 MMOL/L Potassium Level 4.2 3.6-5.0 MMOL/L Chloride Level 104 98-107 MMOL/L Carbon Dioxide Level 24 21-32 MMOL/L Anion Gap 13 5-14 MMOL/L Blood Urea Nitrogen 20 H 7-18 MG/DL Creatinine 1.29 0.60-1.30 MG/DL Estimat Glomerular Filtration Rate 41 BUN/Creatinine Ratio 16 Glucose Level 101 70-105 MG/DL Calcium Level 10.3 H 8.5-10.1 MG/DL Corrected Calcium 10.2 H 8.5-10.1 MG/DL Magnesium Level 2.0 1.6-2.4 MG/DL Total Bilirubin 0.4 0.1-1.0 MG/DL Aspartate Amino Transf (AST/SGOT) 29 5-34 U/L Alanine Aminotransferase (ALT/SGPT) 34 0-55 U/L Alkaline Phosphatase 78 40-136 U/L Troponin I < 0.028 < 0.028 <0.028 NG/ML C-Reactive Protein High Sensitivity 0.16 0.00-0.50 MG/DL B-Type Natriuretic Peptide 177.7 H <100.0 PG/ML Total Protein 7.7 6.4-8.2 GM/DL Albumin 4.1 3.2-4.5 GM/DL My Orders Orders - ITNO NAPIER Continuous Ekg Monitoring (02/18/22 15:55) Ekg Tracing (02/18/22 15:55) Cbc With Automated Diff (02/18/22 15:55) Comprehensive Metabolic Panel (02/18/22 15:55) Hs C Reactive Protein (02/18/22 15:55) Bnp Gabriela (02/18/22 15:55) Troponin I [place] (02/18/22 15:55) Magnesium (02/18/22 15:55) Protime With Inr (02/18/22 16:07) Aspirin Chewable Tablet (Baby Aspirin Ch (02/18/22 16:15) Chest 1 View, Ap/Pa Only (02/18/22 16:07) Diltiazem Cd 24 Hr Capsule (Cardizem Cd (02/18/22 18:30) Troponin I Gabriela (02/18/22 19:27) Medications Given in ED Current Medications Medications Dose Ordered Sig/Christine Route Start Time Stop Time Status Last Admin Dose Admin Aspirin 324 mg ONCE ONCE PO 02/18/22 16:15 02/18/22 16:16 DC 02/18/22 16:19 324 MG Diltiazem HCl 120 mg ONCE ONCE PO 02/18/22 18:30 02/18/22 18:31 DC 02/18/22 19:17 120 MG Vital Signs/I&O 02/18/22 15:38 Temp 36.7 Pulse 81 Resp 18 B/P (MAP) 182/118 (139) Blood Pressure Mean: 139 Progress Progress Note #1: Time: 16:20 Progress Note We will do a work-up for atypical angina says she is having a funny feeling in her chest. We will get a troponin and repeat a troponin at 6. We will get an EKG and chest x-ray. We will give her some aspirin. We will watch her blood pressure is already starting to come down from 186 systolic down to 178 and 169 systolic subsequently. Progress Note #2: Time: 17:32 Progress Note The patient's labs are okay. We will do a delta troponin at 6:00 PM. The patient has largely been in rate controlled atrial fibrillation with a few episodes where her heart rate would shoot up to 1 20-1 30 but only for a minute or 2. She did take her Cardizem 180 mg already today. If it stays up persistently will have her take an extra dose of Cardizem. Otherwise she can talk to Dr. Alaniz about her rate control. She has an appointment on Sunday for a stress test. Progress Note #3: Time: 20:23 Progress Note After the extra dose of Cardizem she has not had any further runs of atrial fibrillation with rapid ventricular response. Her repeat troponin is negative. We will send her home with as needed doses of 120 mg Cardizem CD and she is following up on Sunday with Dr. Alaniz. Her blood pressure is 122/109. Has been down for some time. Initial ECG Impression Date: Feb 18, 2022 Initial ECG Impression Time: 16:07 Initial ECG Rate: 77 Initial ECG Rhythm: Normal Sinus Initial ECG Intervals: Normal Initial ECG Impression: Normal Initial ECG Comparisson: No Previous ECG Available Comment Normal sinus rhythm with [address] depression in lead II and half block ST elevation in lead V1 of uncertain clinical significance. Diagnostic Imaging Diagonstic Imaging: Xray Plain Films/CT/US/NM/MRI: chest Comments [facility] [place], [place] NAME: ADITYA SHAH [facility] REC#: [id number] PT STATUS: REG ER : 1940 PHYSICIAN: TINO NAPIER MD ADMIT DATE: 02/18/22/ER Signed Date of Exam:02/18/22 CHEST 1 VIEW, AP/PA ONLY EXAMINATION: Chest 1 view. HISTORY: Chest pain and hypertension. COMPARISON: 08/03/2018. FINDINGS: Heart size and pulmonary vasculature are normal. Mild interstitial opacities at the lung bases. No pleural effusion or pneumothorax. The osseous structures are intact. IMPRESSION: Mild interstitial opacities in the lung bases which can be seen with atelectasis, pulmonary edema or atypical infection. Dictated by: Dictated on workstation # [id number] Dict: 02/18/22 1634 Trans: 02/18/22 1640 [facility] [id number] Interpreted by: BRUNA ENGLISH DO Electronically signed by: BRUNA ENGLISH DO 02/18/22 1640 Reviewed: Reviewed by Me Departure Impression Primary Impression: Palpitations Additional Impressions: Atrial fibrillation Qualified Codes: I48.0 - Paroxysmal atrial fibrillation Anxiety about health Disposition: HOME, SELF-CARE Condition: Stable Departure-Patient Inst. Decision time for Depature: 20:23 Referrals: CHENTE WILCOX MD (PCP/Family) Primary Care Physician ANGELA ALANIZ MD Patient Instructions: Palpitations ED Add. Discharge Instructions: Keep your follow-up appointment with Dr. Alaniz later in the week. If you have runs of palpitations lasting more than 20 to 30 minutes then you can take an extra dose of Cardizem/diltiazem 120 mg. Do not diltiazem extra more than once a day. If you have significant chest pain or other worrisome symptoms then please return to the ER. All discharge instructions reviewed with patient and/or family. Voiced understanding. Scripts Diltiazem HCl (Diltiazem 24Hr Cd) 120 Mg Cap.er.24h 120 MG PO DAILY PRN for palpitations, #15 CAP 0 Refills Prov: TINO NAPIER 02/18/22 Copy Copies To 1: CHENTE WILCOX MD; ANGELA ALANIZ MD, TITUS J Feb 18, 2022 16:23
[2022-02-18 16:25] LABS: BASOPHILS % (AUTO) 0 % (0-10); EOSINOPHILS # (AUTO) 0.2 10^3/uL (0.0-0.3); EOSINOPHILS % (AUTO) 3 % (0-10); HEMATOCRIT 45 % (35-52); HEMOGLOBIN 15.3 g/dL (11.5-16.0); LYMPHOCYTES # (AUTO) 2.9 10^3/uL (1.0-4.0); LYMPHOCYTES % (AUTO) 38 % (12-44); MEAN CORPUSCULAR HEMOGLOBIN 30 pg (25-34); MEAN CORPUSCULAR HGB CONC 34 g/dL (32-36); MEAN CORPUSCULAR VOLUME 86 fL (80-99); MEAN PLATELET VOLUME 10.6 fL (9.0-12.2); MONOCYTES # (AUTO) 0.6 10^3/uL (0.0-1.0); MONOCYTES % (AUTO) 8 % (0-12); NEUTROPHILS # (AUTO) 3.8 10^3/uL (1.8-7.8); NEUTROPHILS % (AUTO) 50 % (42-75); PLATELET COUNT 226 10^3/uL (130-400); WHITE BLOOD COUNT 7.6 10^3/uL (4.3-11.0)
[2022-02-18 16:34] LABS: INR 0.9 (0.8-1.4); PROTHROMBIN TIME PATIENT 12.6 SEC (12.2-14.7)
[2022-02-18 16:35] LABS: ALBUMIN 4.1 GM/DL (3.2-4.5); CHLORIDE 104 MMOL/L (98-107); POTASSIUM 4.2 MMOL/L (3.6-5.0); SODIUM 141 MMOL/L (135-145)
[2022-02-18 16:37] LABS: CALCIUM 10.3 MG/DL (8.5-10.1)
[2022-02-18 16:38] LABS: GLUCOSE 101 MG/DL (70-105); TOTAL PROTEIN 7.7 GM/DL (6.4-8.2)
--- NOTE | 2022-02-18 16:38 | Diagnostic Imaging Report ---
EXAMINATION: Chest 1 view. HISTORY: Chest pain and hypertension. COMPARISON: 08/03/2018. FINDINGS: Heart size and pulmonary vasculature are normal. Mild interstitial opacities at the lung bases. No pleural effusion or pneumothorax. The osseous structures are intact. IMPRESSION: Mild interstitial opacities in the lung bases which can be seen with atelectasis, pulmonary edema or atypical infection. Dictated by: Dictated on workstation # [id number]
[2022-02-18 16:39] LABS: CARBON DIOXIDE 24 MMOL/L (21-32)
[2022-02-18 16:40] LABS: BILIRUBIN,TOTAL 0.4 MG/DL (0.1-1.0)
[2022-02-18 16:41] LABS: ALKALINE PHOSPHATASE 78 U/L (40-136); CREATININE SERUM 1.29 MG/DL (0.60-1.30); GFR ESTIMATED 41
[2022-02-18 16:42] LABS: BUN/CREATININE RATIO 16
[2022-02-18 16:44] LABS: ALANINE AMINOTRANSFERASE 34 U/L (0-55)
[2022-02-18] MEDS ORDERED: dilTIAZem120 MG (CARDIZEM CD) CAP PO ONE (18:30)
[2022-02-18] MEDS ORDERED: DILT120C88 PO (20:26)
[2022-02-18 20:40] VITALS: BP 171/107
[2022-02-22] MEDS ORDERED: DILT180C85 PO (15:27)
[2022-02-22] MEDS ORDERED: DILT-27 PO (15:27)
[2022-02-22] MEDS ORDERED: FAMO20TA5 PO (15:27)
[2022-02-22] MEDS ORDERED: METO50TA15 PO (15:27)
[2022-02-22] MEDS ORDERED: FERR-84 PO (15:27)
[2022-02-22] MEDS ORDERED: LOSA50TA63 PO (15:27)
[2022-02-22] MEDS ORDERED: RIVA20TA PO (15:27)
[2022-02-22] MEDS ORDERED: FOLI1TAB33 PO (15:27)
[2022-02-22] MEDS ORDERED: CHOL10007 PO (15:27)
[2022-02-22] MEDS ORDERED: OMEP40CA6 PO (15:27)
[2022-02-23] MEDS ORDERED: AMIO200T65 PO (06:15)
== END 2022-02-18 20:41 | disposition home or self-care (01) ==
LOC: EDUNIT# 15:32 → ER 15:34
DX: I48.0 Paroxysmal atrial fibrillation (principal); I48.91 Unspecified atrial fibrillation; F41.9 Anxiety disorder, unspecified; I10 Essential (primary) hypertension; Z79.899 Other long term (current) drug therapy
CPT/HCPCS: 36415; 71045; 80053; 83735; 83880; 84484; 85025; 85610; 86141; 93005

== ENCOUNTER 2022-02-22 10:29 | Observation (INO) | payer MEDICARE, OTHER ==
[2022-02-22] VITALS (22 sets, daily range): BP systolic 94–155; BP diastolic 58–111
[~2022-02-22] VITALS: Ht 165 cm; Wt 65.0 kg
[~2022-02-22 10:29] MED LIST changes: -AMIO200T65 PO; -CHOL10007 PO; -DILT-27 PO; -DILT180C85 PO; -FAMO20TA5 PO; -FERR-84 PO; -FOLI1TAB33 PO; -LOSA50TA63 PO; -METO50TA15 PO; -OMEP40CA6 PO; -REGADENOSON 0.4 MG/5 ML SYR (LEXISCAN) IV ONE; -RIVA20TA PO; -meTOprolol 5 MG/5 ML (LOPRESSOR) VIAL IV ONE; -meTOprolol 5 MG/5 ML (LOPRESSOR) VIAL ONE
[2022-02-22] MEDS ORDERED: AMIODARONE FOR BOLUS 150 MG in NS (IVPB) 100 ML IV NR (11:30)
[2022-02-22] MEDS ORDERED: FAMOTIDINE 20 MG (PEPCID) TABLET PO PRN (11:30)
--- NOTE | 2022-02-22 11:34 | Cardiology Stress Test Report ---
Stress Test Report Date of Procedure/Referring: Date of Procedure: Feb 22, 2022 PCP Chente Tobias MD Admitting Physician Admitting Physician: Beto Alaniz MD Attending Physician: Beto Alaniz MD Indications: a fib Baseline Heart Rate: 140 Baseline Blood Pressure: Blood Pressure Systolic: 136 Blood Pressure Diastolic: 86 Baseline Vitals Vital Signs Date Time Temp Pulse Resp B/P (MAP) Pulse Ox O2 Delivery O2 Flow Rate FiO2 02/22/22 11:15 79 Baseline EKG: Baseline EKG: atrial fibrillation Summary After explaining the procedure to the patient, she signed a consent and then brought to the stress nuclear laboratory. Patient received 0.4 mg Lexiscan for stress test, ECG, heart rate and blood pressure were monitored continuously. Resting and stress dose of radio tracer were injected, imaging was acquired and reviewed in short axis, horizontal long axis and vertical long axis views. TID: 1.2 SSS: 4 SDS: 2 EF: 66 1. Patient tolerated Lexiscan well 2. Baseline atrial fibrillation with rapid ventricular response persisted during test 3. Breast attenuation with no significant ischemia or infarction on SPECT images 4. Normal left ventricular size, ejection fraction 66%, gated images are unreliable due to underlying atrial fibrillation Copy Copies To 1: CHENTE TOBIAS MD, BASHAR J MD Feb 22, 2022 11:34
[2022-02-22 12:01] LABS: HEMATOCRIT 43 % (35-52); HEMOGLOBIN 14.7 g/dL (11.5-16.0); MEAN CORPUSCULAR HEMOGLOBIN 30 pg (25-34); MEAN CORPUSCULAR HGB CONC 34 g/dL (32-36); MEAN CORPUSCULAR VOLUME 86 fL (80-99); MEAN PLATELET VOLUME 10.2 fL (9.0-12.2); PLATELET COUNT 200 10^3/uL (130-400); WHITE BLOOD COUNT 6.5 10^3/uL (4.3-11.0)
[2022-02-22 12:15] LABS: POTASSIUM 4.2 MMOL/L (3.6-5.0)
[2022-02-22 12:16] LABS: CALCIUM 9.8 MG/DL (8.5-10.1)
[2022-02-22 12:18] LABS: TOTAL PROTEIN 7.2 GM/DL (6.4-8.2)
[2022-02-22 12:19] LABS: BILIRUBIN,TOTAL 0.5 MG/DL (0.1-1.0)
[2022-02-22 12:21] LABS: CREATININE SERUM 1.04 MG/DL (0.60-1.30)
[2022-02-22] MEDS: AMIODARONE INJECTION 450 MG in NORMAL SALINE 250 ML IV SCH ×2 (12:21→20:22)
[2022-02-22] MEDS: LOSARTAN 50 MG (COZAAR) TAB PO SCH (12:22)
[2022-02-22] MEDS: meTOprolol TARTRATE 50 MG (LOPRESSOR) TAB PO SCH ×2 (12:22→20:21)
--- NOTE | 2022-02-22 14:56 | Cardiology History & Physical ---
HPI-Cardiology Cardiology Consultation Date of Consultation 02/22/22 Date of Admission Time Seen by Provider: 11:00 Indication: PAF HPI Patient is an 81 y/o female with history of PAF, HTN, HLP. Presented for outpatient nuclear stress test this morning and noted to be in AF with RVR. Patient reports increasing episodes of palpitations, dyspnea and fatigue over the past month. Denies any chest pain, denies dizziness or syncope PMH-Cardiology Immunizations Up To Date Date of Pneumonia Vaccine: November 05, 2007 Seasonal Allergies Seasonal Allergies: Yes Surgeries Yes (COLONOSCOPY) Respiratory No Cardiovascular Yes Atrial Fibrillation, High Cholesterol, Hypertension Neurological No Reproductive System Hx Reproductive Disorders: No Sexually Transmitted Disease: No HIV/AIDS: No Menopausal Genitourinary No Gastrointestinal No Musculoskeletal No Endocrine No HEENT No Loss of Vision: Denies Hearing Impairment: Denies Cancer No Psychosocial No Integumentary No Blood Transfusions No Social History Patient Social History Marrital Status: Smoking: Never smoker Have you traveled recently?: No Family Hx Significant Family History: Heart Disease, Hypertension Family History: Colon cancer ROS-Cardiology Review of Systems General: No Chills, No Night Sweats; Fatigue; No Malaise, No Appetite HEENT: No Head Aches, No Visual Changes, No Eye Pain, No Ear Pain, No Dysphasia, No Sinus Congestion, No Post Nasal Drip, No Sore Throat Pulmonary: No Dyspnea, No Cough, No Pleuritic Chest Pain Cardiovascular: Palpitations Gastrointestinal: No: Nausea, Vomiting, Abdominal Pain, Diarrhea, Constipation, Melena, Hematochezia Genitourinary: No Dysuria, No Frequency, No Incontinence, No Hematuria, No Retention Musculoskeletal: No: neck pain, shoulder pain, arm pain, back pain, hand pain, leg pain, foot pain Neurological: No: Weakness, Numbness, Incoordination, Change in speech, Confusion, Seizures Home Medications & Allergies Allergies: Coded Allergies: NKANo Known Allergies (Verified Allergy, Unknown, 10/16/05) Home Medication List Reviewed: Yes Exam-Cardiology Vital Signs Vital Signs Date Time Temp Pulse Resp B/P (MAP) Pulse Ox O2 Delivery O2 Flow Rate FiO2 02/22/22 15:00 61 9 111/69 (83) 95 Room Air Exam General Appearance: Alert, Oriented X3 HEENT: Atraumatic, PERRLA Respiratory: Clear to Auscultation, Normal Air Movement Cardiovascular: Other (irregularly irregular, tachycardic) Abdominal: Normal Bowel Sounds Extremities: No Clubbing, No Edema Skin: No Rashes, No Significant Lesion Neuro: Normal Gait, Normal Speech Psych/Mental Status: Mental Status NL, Mood NL Results Labs Labs Laboratory Tests 02/22/22 11:50: White Blood Count 6.5, Red Blood Count 4.99, Hemoglobin 14.7, Hematocrit 43, Mean Corpuscular Volume 86, Mean Corpuscular Hemoglobin 30, Mean Corpuscular Hemoglobin Concent 34, Red Cell Distribution Width 12.9, Platelet Count 200, Mean Platelet Volume 10.2, Sodium Level 143, Potassium Level 4.2, Chloride Level 108H, Carbon Dioxide Level 28, Anion Gap 7, Blood Urea Nitrogen 16, Creatinine 1.04, Estimat Glomerular Filtration Rate 53, BUN/Creatinine Ratio 15, Glucose Level 91, Calcium Level 9.8, Corrected Calcium 9.8, Total Bilirubin 0.5, Aspartate Amino Transf (AST/SGOT) 22, Alanine Aminotransferase (ALT/SGPT) 25, Alkaline Phosphatase 72, Total Protein 7.2, Albumin 4.0, Thyroid Stimulating Hormone (TSH) 0.97 A/P-Cardiology Admission Diagnosis AFib with RVR HTN HLP Admission Status: Observation Assessment/Plan Paroxysmal atrial fibrillation, admitted from outpatient stress test with AFib with RVR. Started on Amio gtt in addition to her home Lopressor, Cardizem CD and Xarelto. Telemetry showing patient going in and out of afib. Will plan to change to PO Amiodarone and discharge home in the morning. Stress test done 02/22/22 showing no ischemia or infarct. [id number] score is 4, yearly risk of stroke without oral anticoagulation is 4 percent, patient is maintained on Xarelto, continue to monitor. 2D Echo done January showed normal LV, EF 55-65%, mild MR, PA 35-40mmHg. Hypertension, restart home blood pressure medications and continue to monitor. Hyperlipidemia, intolerance to Lipitor. Maintained on pravastatin, Lipid profile was done on January 26, 2022 showing total cholesterol 196, triglyceride 171, HDL 45, LDL 117. Mild bilateral nonobstructive carotid artery stenosis, last ultrasound was done in July 2021, continue to monitor Benign essential tremor, continue to monitor at this time History of near syncope-resolved, continue to monitor. This is Sole Villafuerte PA-C, as a scribe for Dr. Alaniz. Patient was seen and evaluated with Sole, I discussed with the patient the management plan, she was in atrial fibrillation with rapid ventricular response, given Lopressor in the stress lab I decided to admit her to ICU and start her on IV loading amiodarone and oral. Evaluated later and she was noted to have sinus rhythm with breakthrough atrial fibrillation with rapid ventricular response I will continue with loading amiodarone, restart home medication Monitor Her stress test did not show any acute ischemic changes SOLE KEY Feb 22, 2022 14:56 ANGELA ALANIZ MD Feb 22, 2022 15:48
[2022-02-22] MEDS ORDERED: RIVA20TA PO ×2 (15:27)
[2022-02-22] MEDS ORDERED: OMEP40CA6 PO ×2 (15:27)
[2022-02-22] MEDS ORDERED: CHOL10007 PO ×2 (15:27)
[2022-02-22] MEDS ORDERED: DILT-27 PO ×2 (15:27)
[2022-02-22] MEDS ORDERED: LOSA50TA63 PO ×2 (15:27)
[2022-02-22] MEDS ORDERED: METO50TA15 PO ×2 (15:27)
[2022-02-22] MEDS ORDERED: FAMO20TA5 PO ×2 (15:27)
[2022-02-22] MEDS ORDERED: FOLI1TAB33 PO ×2 (15:27)
[2022-02-22] MEDS ORDERED: DILT180C85 PO ×2 (15:27)
[2022-02-22] MEDS ORDERED: FERR-84 PO ×2 (15:27)
[2022-02-22] MEDS ORDERED: RIVAROXABAN 20 MG TABLET (XARELTO) PO SCH (17:00)
[2022-02-22] MEDS: AMIODARONE 200 MG (CORDARONE) TAB PO SCH (20:21)
[2022-02-23] VITALS (13 sets, daily range): BP systolic 93–132; BP diastolic 41–75
[2022-02-23] MEDS ORDERED: NS IV 500 ML 500 ML IV PRN (00:30)
[2022-02-23 04:59] LABS: POTASSIUM 4.4 MMOL/L (3.6-5.0)
[2022-02-23 05:05] LABS: CREATININE SERUM 1.18 MG/DL (0.60-1.30)
[2022-02-23] MEDS ORDERED: POTASSIUM CL 10MEQ/50ML IVPB 50 ML IV SCH (06:00)
[2022-02-23] MEDS ORDERED: KCL 20 MEQ TAB (K-DUR) PO SCH (06:00)
[2022-02-23] MEDS ORDERED: MAGNESIUM 1 GM/100 ML IVPB 100 ML IV SCH (06:00)
[2022-02-23] MEDS ORDERED: AMIO200T65 PO ×2 (06:15)
--- NOTE | 2022-02-23 06:16 | Discharge Inst-Post CATH ---
Discharge Inst-CATH/EP Problems Reviewed?: Yes Post Cardiac Cath/EP D/C Inst Follow Up/Plan Appointment with Dr Alaniz in one week <b>CARDIAC CATH/EP PROCEDURE DISCHARGE INSTRUCTIONS</b> ACTIVITY * Go Home directly and rest. * Limit activity of the leg (or wrist if it was used) for 7 days including aerobics, swimming, jogging, bicycling, etc. * Restrict stair-climbing for 7 days if possible, if not, climb up with your non-cath leg, then bring together on the same step. * Avoid lifting, pushing, pulling or excessive movement of the affected extremity for 7 days. * Customary sexual activity may be resumed after 2 days-use caution not to use a position that strains or causes pain to the affected extremity. * No driving for 24 hours. * NO SMOKING. * Avoid straining for bowel movements for 7 days. * Gentle walking on level ground is allowed. * Returning to work will depend on the type of procedure and the results. Your doctor will discuss this with you. CALL YOUR DOCTOR FOR ANY OF THE FOLLOWING: *If bleeding from the puncture site occurs- Apply gentle pressure to site with clean cloth and call your doctor or EMS. * If a knot or lump forms under the skin, increases in size, or causes pain. * If bruising appears to be worsening or moving further down your leg instead of disappearing. * Temperature above 101 F. CARE OF YOUR GROIN INCISION; * Bruising or purple discoloration of the skin near the puncture site is common. * You may shower only, no bathtub bathing for 5 days. Be careful to avoid slipping as your leg may feel stiff. * If a closure device was used on your femoral artery, please see the attached guide regarding care of the device and your leg. * Leave dressing on FOR 24 hours. CARE OF YOUR WRIST INCISION; * Bruising or purple discoloration of the skin near the puncture site is common. * You may shower. * DO NOT submerge wrist. * Leave dressing on FOR 24 hours. ANGELA ALANIZ MD Feb 23, 2022 06:16
--- NOTE | 2022-02-23 08:29 | Cardiology Discharge Summary ---
Discharge Summary Hospital Course Problems Reviewed?: Yes Hospital Course Date of Admission: Feb 22, 2022 at 10:55 Admission Diagnosis : Family Physician/Provider: Destiny Tobias MD Date of Discharge: 02/23/22 Discharge Diagnosis: [ ] Hospital Course: [Paroxysmal atrial fibrillation, admitted from outpatient stress test with AFib with RVR. Started on Amio gtt in addition to her home Lopressor, Cardizem CD and Xarelto. Telemetry showing patient going in and out of afib. Patient tolerated IV amiodarone Switching to oral and planning for discharge today Stress test done 02/22/22 showing no ischemia or infarct. [id number]-[id number] score is 4, yearly risk of stroke without oral anticoagulation is 4 percent, patient is maintained on Xarelto, continue to monitor. 2D Echo done January showed normal LV, EF 55-65%, mild MR, PA 35-40mmHg. Hypertension, restart home blood pressure medications and continue to monitor. Hyperlipidemia, intolerance to Lipitor. Maintained on pravastatin, Lipid profile was done on January 26, 2022 showing total cholesterol 196, triglyceride 171, HDL 45, LDL 117. Mild bilateral nonobstructive carotid artery stenosis, last ultrasound was done in July 2021, continue to monitor Benign essential tremor, continue to monitor at this time History of near syncope-resolved, continue to monitor. ] Labs and Pending Lab Test: Laboratory Tests 02/22/22 11:50: White Blood Count 6.5, Red Blood Count 4.99, Hemoglobin 14.7, Hematocrit 43, Mean Corpuscular Volume 86, Mean Corpuscular Hemoglobin 30, Mean Corpuscular Hemoglobin Concent 34, Red Cell Distribution Width 12.9, Platelet Count 200, Mean Platelet Volume 10.2, Sodium Level 143, Potassium Level 4.2, Chloride Level 108H, Carbon Dioxide Level 28, Anion Gap 7, Blood Urea Nitrogen 16, Creatinine 1.04, Estimat Glomerular Filtration Rate 53, BUN/Creatinine Ratio 15, Glucose Level 91, Calcium Level 9.8, Corrected Calcium 9.8, Total Bilirubin 0.5, Aspartate Amino Transf (AST/SGOT) 22, Alanine Aminotransferase (ALT/SGPT) 25, Alkaline Phosphatase 72, Total Protein 7.2, Albumin 4.0, Thyroid Stimulating Hormone (TSH) 0.97 02/23/22 04:25: Sodium Level 141, Potassium Level 4.4, Chloride Level 110H, Carbon Dioxide Level 20L, Anion Gap 11, Blood Urea Nitrogen 18, Creatinine 1.18, Estimat Glomerular Filtration Rate 46, BUN/Creatinine Ratio 15, Glucose Level 104, Calcium Level 9.0, Magnesium Level 2.1 Home Meds Active Amiodarone HCl 200 Mg Tablet 200 Mg PO UD Take 2 tabs twice daily for one week then take 1 tab twice daily Reported Xarelto (Rivaroxaban) 20 Mg Tablet 20 Mg PO DAILY Folic Acid 1 Mg Tablet 1 Mg PO 1200 Iron (Ferrous Sulfate) 325 Mg (65 Mg Iron) Tablet 325 Mg PO MO,WE,FR Vitamin D3 (Cholecalciferol (Vitamin D3)) 25 Mcg (1000 Unit) Capsule 25 Mcg PO 1200 Omeprazole 40 Mg Capsule.dr 40 Mg PO DAILY PRN Famotidine 20 Mg Tablet 20 Mg PO BID Metoprolol Tartrate 50 Mg Tablet 50 Mg PO BID Diltiazem 24Hr ER (Diltiazem HCl) 180 Mg Cap.er.24h 180 Mg PO DAILY Losartan Potassium 50 Mg Tablet 50 Mg PO HS Diltiazem 24Hr ER (Diltiazem HCl) 120 Mg Cap.er.24h 120 Mg PO DAILY PRN Calcium (Calcium Carbonate) 600 Mg Tablet 600 Mg PO BID Pravastatin Sodium 20 Mg Tablet 20 Mg PO HS Fish Oil 1,000 mg Capsule (Julian 3 Polyunsat Fatty Acids) 1,000 Mg Cap 1,000 Mg PO BID Assessment/Pt DC Instructions Paroxysmal atrial fibrillation Tachycardia Discharge Physical Examination Allergies: Coded Allergies: NKANo Known Allergies (Verified Allergy, Unknown, 10/16/05) General Appearance: No Apparent Distress, WD/WN HEENT: PERRL/EOMI, TMs Normal, Normal ENT Inspection, Pharynx Normal Respiratory: Chest Non Tender, Lungs Clear, Normal Breath Sounds, No Accessory Muscle Use, No Respiratory Distress Cardiovascular: Regular Rate, Rhythm, No Edema, No Gallop, No JVD Gastrointestinal: Normal Bowel Sounds, No Organomegaly, No Pulsatile Mass, Non Tender Extremity: Normal Capillary Refill, Normal Inspection, Normal Range of Motion, Non Tender Skin: Normal Color, Warm/Dry Neurologic/Psychiatric: Alert, Oriented x3 Clinical Quality Measures Admission Status Admission Status: Inpatient Order (span 2 midnights) Reason for Inpatient Admission: Atrial fibrillation Amiodarone AMI/AHF: Ejection Fraction: Above/Equal to 40 ANGELA REYNA MD Feb 23, 2022 08:29
[2022-02-23] MEDS: AMIODARONE 200 MG (CORDARONE) TAB PO SCH (08:37)
[2022-02-23] MEDS: LOSARTAN 50 MG (COZAAR) TAB PO SCH (08:37)
[2022-02-23] MEDS: meTOprolol TARTRATE 50 MG (LOPRESSOR) TAB PO SCH (08:37)
== END 2022-02-23 08:29 | disposition home or self-care (01) ==
LOC: ICU 10:55 → UNDOADMOB 10:55 → INTOOBSV 10:55 → ICU 12:00 → UNDODISOB 02-23 10:20
PROVIDERS: ADMIT Internal Medicine Cardiovascular Disease; ATTEND Internal Medicine Cardiovascular Disease
DX: I48.0 Paroxysmal atrial fibrillation (principal); I10 Essential (primary) hypertension; E78.5 Hyperlipidemia, unspecified; I65.23 Occlusion and stenosis of bilateral carotid arteries; G25.0 Essential tremor; Z79.899 Other long term (current) drug therapy; Z79.01 Long term (current) use of anticoagulants
CPT/HCPCS: 80048; 80053; 83735; 84443; 85027; 96366; 96376; G0378; G0379; 36415

== ENCOUNTER → 2022-02-22 | Outpatient (CLI) | payer MEDICARE, OTHER ==
[~2022-02-22] MED LIST changes: +AMIO200T65 PO; +CHOL10007 PO; +DILT-27 PO; +DILT120C88 PO; +DILT180C85 PO; +FAMO20TA5 PO; +FERR-84 PO; +FOLI1TAB33 PO; +LOSA50TA63 PO; +METO50TA15 PO; +OMEP40CA6 PO; +REGADENOSON 0.4 MG/5 ML SYR (LEXISCAN) IV ONE; +RIVA20TA PO; +meTOprolol 5 MG/5 ML (LOPRESSOR) VIAL IV ONE; +meTOprolol 5 MG/5 ML (LOPRESSOR) VIAL ONE
[2022-02-22] MEDS: CATHETER FLUSH 10 ML SYR IVP PRN ×2 (07:51→09:55)
[2022-02-22 09:54] VITALS: BP 136/86
== END ==
LOC: CARD 07:38
PROVIDERS: ATTEND Internal Medicine Cardiovascular Disease
DX: I25.10 Atherosclerotic heart disease of native coronary artery without angina pectoris (principal); I10 Essential (primary) hypertension
CPT/HCPCS: 78452; 93017; A9502

== ENCOUNTER → 2022-03-17 | Outpatient (RCR) | payer MEDICARE, OTHER ==
[~2022-03-17] MED LIST changes: +AMIO200T65 PO; +CHOL10007 PO; +DILT-27 PO; +DILT180C85 PO; +FAMO20TA5 PO; +FERR-84 PO; +FOLI1TAB33 PO; +LOSA50TA63 PO; +METO50TA15 PO; +OMEP40CA6 PO; +RIVA20TA PO
== END | disposition home or self-care (01) ==
PROVIDERS: ATTEND Nurse Practitioner Family
DX: S76.012D Strain of muscle, fascia and tendon of left hip, subsequent encounter (principal); X58.XXXD Exposure to other specified factors, subsequent encounter

== ENCOUNTER → 2022-06-06 | Outpatient (CLI) | payer MEDICARE, OTHER ==
--- NOTE | 2022-06-06 15:40 | Diagnostic Imaging Report ---
INDICATION: Routine screening. COMPARISON: 05/31/2021 and 11/02/2017. TECHNIQUE: 2D and 3D bilateral screening mammography was performed with CAD. FINDINGS: Scattered fibroglandular densities are identified bilaterally. A marker clip in the upper outer left breast is again noted. There are scattered benign calcifications. No spiculated mass or malignant-appearing microcalcifications are seen. The axillae are unremarkable. IMPRESSION: No mammographic features suspicious for malignancy are identified. ACR BI-RADS Category 2: Benign findings. Result letter will be mailed to the patient. Note: At least 10% of breast cancer is not imaged by mammography. Dictated by: Dictated on workstation # [id number]
== END ==
LOC: RAD 09:40
PROVIDERS: ATTEND Nurse Practitioner Family
DX: Z12.31 Encounter for screening mammogram for malignant neoplasm of breast (principal)
CPT/HCPCS: 77063; 77067

== ENCOUNTER 2023-01-22 02:56 | Observation (INO) | payer MEDICARE, OTHER ==
[~2023-01-22] VITALS: Ht 160 cm; Wt 63.5 kg
[2023-01-22] MEDS ORDERED: ASPIRIN 81 MG CHEWABLE TABLET PO ONE (03:00)
[2023-01-22] MEDS ORDERED: morphine INJ 4 MG/ML 1 ML (VIAL/SYRINGE) IVP ONE (03:15)
[2023-01-22 03:17] LABS: BASOPHILS % (AUTO) 0 % (0-10); EOSINOPHILS # (AUTO) 0.4 10^3/uL (0.0-0.3); EOSINOPHILS % (AUTO) 5 % (0-10); HEMATOCRIT 44 % (35-52); HEMOGLOBIN 14.9 g/dL (11.5-16.0); LYMPHOCYTES % (AUTO) 25 % (12-44); MEAN CORPUSCULAR HEMOGLOBIN 30 pg (25-34); MEAN CORPUSCULAR HGB CONC 34 g/dL (32-36); MEAN CORPUSCULAR VOLUME 88 fL (80-99); MEAN PLATELET VOLUME 9.8 fL (9.0-12.2); MONOCYTES # (AUTO) 0.7 10^3/uL (0.0-1.0); MONOCYTES % (AUTO) 9 % (0-12); NEUTROPHILS # (AUTO) 4.8 10^3/uL (1.8-7.8); NEUTROPHILS % (AUTO) 61 % (42-75); PLATELET COUNT 227 10^3/uL (130-400); WHITE BLOOD COUNT 7.9 10^3/uL (4.3-11.0)
--- NOTE | 2023-01-22 03:20 | ED Chest Pain ---
General Chief Complaint: Chest Pain Stated Complaint: CP Source: patient History of Present Illness Date Seen by Provider: Jan 22, 2023 Time Seen by Provider: 03:00 Initial Comments PT ARRIVES VIA POV FROM HOME WITH FAMILY MEMBER C/O CHEST PAIN IN MID/LOWER STERNAL AREA THAT WOKE HER FROM SLEEP AT MIDNIGHT PAIN IS CONSTANT AND GOES STRAIGHT THROUGH TO HER BACK NOTHING WORSENS OR IMPROVES PAIN RATES PAIN 6/10 NO SHORTNESS OF BREATH + SWEATS--STATES HER WHOLE BODY WAS COVERED IN SWEAT NO NAUSEA/VOMITING NO PALPITATIONS NO DIZZINESS OR SYNCOPE NO SWELLING IN LEGS/FEET OR PAIN IN CALVES PT HAS PAROXYSMAL ATRIAL FIBRILLATION, HTN AND HYPERLIPIDEMIA. SHE TAKES XARELTO DAILY--TOOK HER REGULAR DOSE TONIGHT BEFORE BED SHE SEES DR. REYNA. SHE HAS BEEN ON THE PHONE WITH HIS OFFICE SEVERAL TIMES OVER THE LAST MONTH HAD LAB DONE ABOUT A MONTH AGO, AND HER LIVER ENZYMES WERE HIGH, AND HE STOPPED HER PRAVASTATIN AND AMIODARONE. SHE HAD LAB RECHECKED THIS PAST WEEK AND HER LIVER ENZYMES WERE STILL HIGH, AND HE STARTED HER ON EZETIMIBE SHE HAS NOT HAD PRIOR CHEST PAIN OR HEART ATTACK. SHE HAS NOT HAD A CARDIAC CATH. PCP:DR. WILCOX TEST ENGINE OPERATOR: DR. REYNA Allergies and Home Medications Allergies Coded Allergies: Bety Known Allergies (Verified Allergy, Unknown, 10/16/05) Patient Home Medication List Home Medication List Reviewed: Yes Amiodarone HCl (Amiodarone HCl) 200 Mg Tablet, 200 MG PO UD Prescribed by: ANGELA REYNA on 02/23/22 0615 Calcium Carbonate (Calcium) 600 Mg Tablet, 600 MG PO BID, (Reported) Entered as Reported by: CONCETTA HERNANDEZ on 04/04/18 0831 Cholecalciferol (Vitamin D3) (Vitamin D3) 25 Mcg (1000 Unit) Capsule, 25 MCG PO 1200, (Reported) Entered as Reported by: RHIANNA MOTTA on 02/22/22 1527 Diltiazem HCl (Diltiazem 24Hr ER) 180 Mg Cap.er.24h, 180 MG PO DAILY, (Reported) Entered as Reported by: RHIANNA MOTTA on 02/22/22 1527 Famotidine (Famotidine) 20 Mg Tablet, 20 MG PO BID, (Reported) Entered as Reported by: RHIANNA MOTTA on 9/7/22 1527 Ferrous Sulfate (Iron) 325 Mg (65 Mg Iron) Tablet, 325 MG PO MO,WE,FR, (Reported) Entered as Reported by: RHIANNA MOTTA on 02/22/221526 Folic Acid (Folic Acid) 1 Mg Tablet, 1 MG PO 1200, (Reported) Entered as Reported by: RHIANNA MOTTA on 02/22/221526 Losartan Potassium (Losartan Potassium) 50 Mg Tablet, 50 MG PO HS, (Reported) Entered as Reported by: RHIANNA MOTTA on 02/22/221526 [place] 3 Polyunsat Fatty Acids (Fish Oil 1,000 mg Capsule) 1,000 Mg Cap, 1,000 MG PO BID, (Reported) Entered as Reported by: CONCETTA HERNANDEZ on 04/04/18830 Omeprazole (Omeprazole) 40 Mg Capsule.dr, 40 MG PO DAILY PRN for HEARTBURN, (Reported) Entered as Reported by: RHIANNA MOTTA on 02/22/221526 Pravastatin Sodium (Pravastatin Sodium) 20 Mg Tablet, 20 MG PO HS, (Reported) Entered as Reported by: CONCETTA HERNANDEZ on 04/04/18830 Rivaroxaban (Xarelto) 20 Mg Tablet, 20 MG PO DAILY, (Reported) Entered as Reported by: RHIANNA MOTTA on 02/22/221526 Review of Systems Review of Systems Constitutional: see HPI, diaphoresis EENTM: No Symptoms Reported Respiratory: No Symptoms Reported Cardiovascular: See HPI, Chest Pain; Denies Edema, Denies Irregular Heart Rate, Denies Lightheadedness, Denies Palpitations, Denies Syncope Gastrointestinal: No Symptoms Reported; Denies Abdominal Pain, Denies Nausea, Denies Vomiting Genitourinary: No Symptoms Reported Musculoskeletal: see HPI, back pain Skin: no symptoms reported Psychiatric/Neurological: No Symptoms Reported Endocrine: No Symptoms Reported Hematologic/Lymphatic: No Symptoms Reported Past Njwigtd-Kwsoft-Pyksaa Hx Patient Social History Tobacco Use?: No Use of E-Cig and/or Vaping dev: No Substance use?: No Alcohol Use?: No Immunizations Up To Date First/Initial COVID19 Vaccinat: 2020 Second COVID19 Vaccination Gregg: 2020 Seasonal Allergies Seasonal Allergies: Yes Past Medical History Surgery/Hospitalization HX: HTN, AFIB, APPY, D&C 12/2020 FOR POST MENOPAUSAL BLEEDING ON ELIQUIS--BENIGN Surgeries: Yes (COLONOSCOPY; D&C) Appendectomy, Tonsillectomy Respiratory: No Currently Using CPAP: No Currently Using BIPAP: No Cardiac: Yes Atrial Fibrillation, High Cholesterol, Hypertension Neurological: Yes (TREMOR) Reproductive Disorders: No SUPERVISING BAILIFF History: Menopausal Sexually Transmitted Disease: No HIV/AIDS: No Genitourinary: No Gastrointestinal: No Musculoskeletal: No Endocrine: No HEENT: No Loss of Vision: Denies Hearing Impairment: Denies Cancer: No Psychosocial: No Integumentary: No Blood Disorders: No Family Medical History Colon cancer Heart Disease, Hypertension ADDITIONAL PMH: Stress test done 02/22/22 showing no ischemia or infarct. 2D Echo done January showed normal LV, EF 55-65%, mild MR, PA 35-40mmHg. Physical Exam Vital Signs Vital Signs - First Documented 01/22/23 03:00 Temp 35.8 Pulse 78 Resp 18 B/P (MAP) 164/76 (105) Pulse Ox 99 O2 Delivery Nasal Cannula O2 Flow Rate 2.00 Capillary Refill : Less Than 3 Seconds Height, Weight, BMI Height: 5'3.50" Weight: 143lbs. 0.0oz. 64.079159hb; 23.87 BMI Method:Estimated General Appearance: No Apparent Distress, WD/WN HEENT: PERRL/EOMI Neck: Full Range of Motion, Normal Inspection, Non Tender, Supple; No Carotid Bruit, No JVD Respiratory: Chest Non Tender, Normal Breath Sounds, No Accessory Muscle Use, No Respiratory Distress Cardiovascular: Regular Rate, Rhythm, No Edema, No JVD, No Murmur, Normal Peripheral Pulses (+2/4 BILATERALLY) Gastrointestinal: Normal Bowel Sounds, No Organomegaly, No Pulsatile Mass, Non Tender, Soft Extremity: Normal Capillary Refill, Normal Inspection, Normal Range of Motion, Non Tender, No Calf Tenderness, No Pedal Edema Neurologic/Psychiatric: Alert, Oriented x3, No Motor/Sensory Deficits, Normal Mood/Affect, driver education instructor II-XII Norm as Tested Skin: Normal Color, Warm/Dry Progress/Results/Core Measures Results/Orders Lab Results Laboratory Tests Test 01/22/23 03:06 01/22/23 06:54 Range/Units White Blood Count 7.9 4.3-11.0 10^3/uL Red Blood Count 5.02 3.80-5.11 10^6/uL Hemoglobin 14.9 11.5-16.0 g/dL Hematocrit 44 35-52 % Mean Corpuscular Volume 88 80-99 fL Mean Corpuscular Hemoglobin 30 25-34 pg Mean Corpuscular Hemoglobin Concent 34 32-36 g/dL Red Cell Distribution Width 13.0 10.0-14.5 % Platelet Count 227 130-400 10^3/uL Mean Platelet Volume 9.8 9.0-12.2 fL Immature Granulocyte % (Auto) 1 % Neutrophils (%) (Auto) 61 42-75 % Lymphocytes (%) (Auto) 25 12-44 % Monocytes (%) (Auto) 9 0-12 % Eosinophils (%) (Auto) 5 0-10 % Basophils (%) (Auto) 0 0-10 % Neutrophils # (Auto) 4.8 1.8-7.8 10^3/uL Lymphocytes # (Auto) 2.0 1.0-4.0 10^3/uL Monocytes # (Auto) 0.7 0.0-1.0 10^3/uL Eosinophils # (Auto) 0.4 H 0.0-0.3 10^3/uL Basophils # (Auto) 0.0 0.0-0.1 10^3/uL Immature Granulocyte # (Auto) 0.0 0.0-0.1 10^3/uL Prothrombin Time 26.6 H 12.2-14.7 SEC INR Comment 2.5 H 0.8-1.4 Activated Partial Thromboplast Time 43 H 24-35 SEC D-Dimer 0.42 0.00-0.49 UG/ML Sodium Level 142 135-145 MMOL/L Potassium Level 4.0 3.6-5.0 MMOL/L Chloride Level 107 98-107 MMOL/L Carbon Dioxide Level 23 21-32 MMOL/L Anion Gap 12 5-14 MMOL/L Blood Urea Nitrogen 19 H 7-18 MG/DL Creatinine 1.44 H 0.60-1.30 MG/DL Estimat Glomerular Filtration Rate 36 BUN/Creatinine Ratio 13 Glucose Level 140 H 70-105 MG/DL Calcium Level 10.2 H 8.5-10.1 MG/DL Corrected Calcium 10.1 8.5-10.1 MG/DL Magnesium Level 2.2 1.6-2.4 MG/DL Total Bilirubin 0.4 0.1-1.0 MG/DL Aspartate Amino Transf (AST/SGOT) 30 5-34 U/L Alanine Aminotransferase (ALT/SGPT) 36 0-55 U/L Alkaline Phosphatase 101 40-136 U/L Total Creatine Kinase 61 29-168 U/L Creatine Kinase MB 1.1 <6.6 NG/ML Myoglobin 30.7 10.0-92.0 NG/ML Troponin I < 0.028 < 0.028 <0.028 NG/ML B-Type Natriuretic Peptide 40.8 <100.0 PG/ML Total Protein 7.6 6.4-8.2 GM/DL Albumin 4.1 3.2-4.5 GM/DL Amylase Level 57 25-125 U/L Lipase 30 8-78 U/L My Orders Orders - LORRI CHEN DO Cbc With Automated Diff (01/22/23 03:00) Magnesium (01/22/23 03:00) Chest 1 View, Ap/Pa Only (01/22/23 03:00) Ekg Tracing (01/22/23 03:00) Comprehensive Metabolic Panel (01/22/23 03:00) Myoglobin Serum (01/22/23 03:00) Protime With Inr (01/22/23 03:00) Partial Thromboplastin Time (01/22/23 03:00) O2 (01/22/23 03:00) Monitor-Rhythm Ecg Trace Only (01/22/23 03:00) Ed Iv/Invasive Line Start (01/22/23 03:00) Creatine Kinase (01/22/23 03:00) Creatine Kinase Mb (01/22/23 03:00) Lipase (01/22/23 03:00) Amylase (01/22/23 03:00) Bnp Gabriela (01/22/23 03:00) Fibrin Degradation Products (01/22/23 03:00) Troponin I [place] (01/22/23 03:00) Aspirin Chewable Tablet (Aspirin Chewabl (01/22/23 03:00) Morphine Injection (Morphine Injection (01/22/23 03:15) Ondansetron Injection (Zofran Injectio (01/22/23 03:30) Ct Angio Chest W(R/O Tad) (01/22/23 03:46) Iohexol Injection (Omnipaque 350 Mg/Ml 1 (01/22/23 04:45) Received Contrast (Hold Metformin- Contr (01/22/23 04:45) Ns (Ivpb) 100 Ml (Sodium Chloride 0.9% 1 (01/22/23 04:45) Ekg Tracing (01/22/23 06:23) Troponin I Gabriela (01/22/23 06:23) Ed Admission (Communication) (01/22/23 07:41) Medications Given in ED Current Medications Medications Dose Ordered Sig/Christine Route Start Time Stop Time Status Last Admin Dose Admin Aspirin 324 mg ONCE ONCE PO 01/22/23 03:00 01/22/23 03:02 DC 01/22/23 03:20 324 MG Iohexol 100 ml ONCE ONCE IV 01/22/23 04:45 01/22/23 04:48 DC 01/22/23 04:44 61 ML Morphine Sulfate 4 mg ONCE ONCE IVP 01/22/23 03:15 01/22/23 03:16 DC 01/22/23 03:20 4 MG Ondansetron HCl 4 mg ONCE ONCE IVP 01/22/23 03:30 01/22/23 03:31 DC 01/22/23 03:29 4 MG Sodium Chloride 100 ml ONCE ONCE IV 01/22/23 04:45 01/22/23 04:48 DC 01/22/23 04:44 68 ML Vital Signs/I&O 01/22/23 01/22/23 03:00 03:10 Temp 35.8 Pulse 78 Resp 18 B/P (MAP) 164/76 (105) Pulse Ox 99 99 O2 Delivery Nasal Cannula Nasal Cannula O2 Flow Rate 2.00 2.00 Progress Progress Note : Progress Note VITALS ON ARRIVAL: TEMP 35.8=96.4, BP 164/76, HR 78, RR 16, O2 SAT 94% ON ROOM AIR GIVEN: -ASPIRIN -MORPHINE -ZOFRAN LABS INCLUDING CBC, CMP, AMYLASE/LIPASE, TROPONIN, BNP, COAGULATION STUDIES O RDERED IN ADDITION TO EKG AND CXR CBC--NORMAL CMP--NA 142, KCL 4.0, BUN 19, CR 1.44, GLU 140, CA 10.2, MG 2.2. LFT'S NORMAL AMYLASE/LIPASE NORMAL TROPONIN AND BNP NORMAL; REPEAT TROPONIN IS NEGATIVE. PT/PTT/INR 26.6/42/25. D-DIMER 0.42 EKG IS UNREMARKABLE, AND REPEAT EKG IS UNCHANGED CXR IS UNREMARKABLE CT CHEST ANGIOGRAM IS UNREMARKABLE PT IS PAIN FREE WITH MORPHINE AND BLOOD PRESSURE IS DOWN DISCUSSED TEST RESULTS, NEED FOR ADMIT AND PT IS AGREEABLE TO PLAN. REVIEWED PRIOR RECORDS INCLUDING ER VISITS/ADMITS/TESTS/PROCEDURES. Initial ECG Impression Date: Jan 22, 2023 Initial ECG Impression Time: 03:06 Initial ECG Rate: 69 Initial ECG Rhythm: Normal Sinus Initial ECG Intervals: Normal Initial ECG Intervals WI 174 QRS 89 QT/QTC 422/442 Initial ECG Impression: Normal Initial ECG Comparisson: Unchanged Comment INTERPRETED BY ME EKG : EKG Time: 06:39 Rate: 64 Rhythm: Normal Sinus Intervals: Normal ECG Comparisson: Unchanged Comment INTERPRETED BY ME Diagnostic Imaging Comments CXR--NO ACUTE PROCESS, PENDING RADIOLOGIST REVIEW CT CHEST ANGIOGRAM-- Reviewed: Reviewed by Me Departure Communication (Admissions) 0735--SPOKE WITH DR. ESQUEDA, HOSPITALIST FOR DR. WILCOX'S PT'S. ACCEPTS PT FOR ADMIT. SHE WILL DO ADMIT ORDERS 0743--SPOKE WITH DR. SUMMERS FOR CARDIOLOGY CONSULT. Impression Primary Impression: Chest pain Additional Impression: HISTORY OF PAROXYSMAL ATRIAL FIBRILLATION Disposition: ADMITTED INPATIENT Condition: Improved Admissions Decision to Admit Reason: Admit from ER (General) Decision to Admit/Date: Jan 22, 2023 Time/Decision to Admit Time: 07:45 Departure-Patient Inst. Referrals: CHENTE WILCOX MD (PCP/Family) Primary Care Physician LORRI CHEN DO Jan 22, 2023 03:20
[2023-01-22 03:28] LABS: ALBUMIN 4.1 GM/DL (3.2-4.5); CHLORIDE 107 MMOL/L (98-107); SODIUM 142 MMOL/L (135-145)
[2023-01-22 03:29] LABS: CALCIUM 10.2 MG/DL (8.5-10.1)
[2023-01-22 03:30] LABS: AMYLASE 57 U/L (25-125); GLUCOSE 140 MG/DL (70-105)
[2023-01-22] MEDS ORDERED: ONDANSETRON 4 MG/2 ML (SDV) Z0FRAN IVP ONE (03:30)
[2023-01-22 03:31] LABS: TOTAL PROTEIN 7.6 GM/DL (6.4-8.2)
[2023-01-22 03:32] LABS: BILIRUBIN,TOTAL 0.4 MG/DL (0.1-1.0); CARBON DIOXIDE 23 MMOL/L (21-32)
[2023-01-22 03:33] LABS: INR 2.5 (0.8-1.4); PROTHROMBIN TIME PATIENT 26.6 SEC (12.2-14.7)
[2023-01-22 03:34] LABS: ALKALINE PHOSPHATASE 101 U/L (40-136); CREATININE SERUM 1.44 MG/DL (0.60-1.30); GFR ESTIMATED 36
[2023-01-22 03:35] LABS: BUN/CREATININE RATIO 13
[2023-01-22 03:37] LABS: ALANINE AMINOTRANSFERASE 36 U/L (0-55)
[2023-01-22 03:38] LABS: FIBRIN DEGRADATION PRODUCTS 0.42 UG/ML (0.00-0.49); MAGNESIUM 2.2 MG/DL (1.6-2.4)
[2023-01-22 03:39] LABS: CREATINE KINASE 61 U/L (29-168)
[2023-01-22 03:45] LABS: CREATINE KINASE MB 1.1 NG/ML (<6.6)
[2023-01-22 04:02] LABS: LIPASE 30 U/L (8-78)
[2023-01-22] MEDS ORDERED: NS 100 ML (IVPB) BAG IV ONE (04:45)
[2023-01-22] MEDS ORDERED: IOHEXOL 350 MG/ML 100 ML (OMNIPAQUE 350) VIAL IV ONE (04:45)
[2023-01-22] MEDS ORDERED: HOLD METFORMIN - RECEIVED CONTRAST 20 ML VIAL IV SCH (04:45)
--- NOTE | 2023-01-22 07:35 | Diagnostic Imaging Report ---
TECHNIQUE: CTA of the chest was performed with contrast bolus timing optimized for evaluation of the pulmonary arteries. 3-D reformats were obtained and reviewed. Dose reduction techniques were utilized. REASON FOR EXAM: Chest pain. Shortness of breath. COMPARISON: Chest radiograph performed earlier the same day. FINDINGS: This helical CT pulmonary angiogram is diagnostic to the subsegmental level branches of the pulmonary artery and demonstrates no pulmonary emboli. The heart and great vessels are unremarkable. There is no pericardial effusion. There is no axillary, mediastinal, or hilar adenopathy. Nodule seen in the right lobe of the thyroid measuring 1.5 cm. Dependent opacities are seen in the lungs. No focal consolidation or mass. No central endobronchial obstructing lesion. No pleural effusion or pneumothorax. Osseous structures appear normal. Limited views of the upper abdomen are unremarkable. Nonspecific hypoattenuating focus is seen in the right hepatic lobe. IMPRESSION: 1. No acute pulmonary embolus. 2. Dependent opacities, favored to represent atelectasis. 3. Nodule in the right lobe of the thyroid measuring 1.5 cm. Consider thyroid ultrasound to further evaluate. Agree with overnight report. Dictated by: Dictated on workstation # [id number]
--- NOTE | 2023-01-22 07:55 | Diagnostic Imaging Report ---
EXAM: CHEST 1 VIEW, AP/PA ONLY INDICATION: Chest pain. COMPARISON: 02/18/2022. FINDINGS: Normal heart size and central pulmonary vascularity. No focal pulmonary opacity. No pleural effusion or pneumothorax. No acute osseous findings. IMPRESSION: No acute cardiopulmonary findings. Agree with ED preliminary interpretation. Dictated by: Dictated on workstation # [id number]
[2023-01-22 08:00] VITALS: BP 135/70
[2023-01-22] MEDS ORDERED: ACETAMINOPHEN 325 MG TABLET PO PRN (08:15)
[2023-01-22] MEDS ORDERED: LACTULOSE SYRUP 10GM/15ML 30ML UDC PO PRN (08:15)
[2023-01-22] MEDS ORDERED: ANTACID SUSP 30 ML UDC (MYLANTA) PO PRN (08:15)
[2023-01-22] MEDS ORDERED: ALPRAZolam 0.25 MG TABLET PO PRN (08:15)
[2023-01-22] MEDS ORDERED: NS IV 1000 ML 1,000 ML IV SCH (08:15)
[2023-01-22] MEDS ORDERED: ONDANSETRON 4 MG/2 ML (SDV) Z0FRAN IV PRN (08:15)
[2023-01-22] MEDS ORDERED: diphenhydrAMINE INJ 50 MG/ML VIAL IVP PRN (08:15)
[2023-01-22] MEDS ORDERED: CALCIUM CARBONATE 500 MG CHEW TABLET PO PRN (08:15)
[2023-01-22] MEDS ORDERED: polyethylene glycoL POWDER 17 GM (MIRALAX) PACK PO PRN (08:15)
[2023-01-22] MEDS ORDERED: ONDANSETRON 4 MG (ZOFRAN) ORAL DISSOLVE TAB PO PRN (08:15)
[2023-01-22] MEDS ORDERED: BISACODYL 10 MG SUPPOSITORY PR PRN (08:15)
[2023-01-22] MEDS ORDERED: PATIENT MAY USE OWN MEDS, ALL PO SCH (08:15)
[2023-01-22] MEDS ORDERED: MELATONIN 3 MG TABLET PO PRN (08:15)
[2023-01-22] MEDS ORDERED: HYDROmorphone INJECTION 2 MG/ML VIAL IV PRN (08:15)
[2023-01-22] MEDS ORDERED: MILK OF MAGNESIA 400 MG/5 ML 30 ML UDC PO PRN (08:15)
[2023-01-22] MEDS ORDERED: diphenhydrAMINE 25 MG TABLET PO PRN (08:15)
[2023-01-22] MEDS ORDERED: oxyCODONE IMMEDIATE RELEASE 5 MG TABLET PO PRN (08:15)
--- NOTE | 2023-01-22 08:15 | Short Stay Summary ---
History of Present Illness History of Present Illness Reason for visit/HPI Chief complaint: Chest pain HPI: This is an 82-year-old female who has a history of atrial fibrillation on amiodarone and recent medication changes due to elevated liver enzymes who presented to the ER with chest pain. It was atypical type. Troponin was negative. The decision was made due to cardiac risk factors to place in observation and obtain cardiology consultation. Date of Admission Jan 22, 2023 at 07:43 Date of Discharge 01/22/2023 Time Seen by Provider: 11:00 Attending Physician Destiny Tobias MD Admitting Physician Admitting Physician: Deloris Esqueda DO Attending Physician: Deloris Esqueda DO Consult Allergies and Home Medications Allergies Coded Allergies: NKANo Known Allergies (Verified Allergy, Unknown, 10/16/05) Patient Home Medication List Home Medication List Reviewed: Yes Amiodarone HCl (Amiodarone HCl) 200 Mg Tablet, 200 MG PO DAILY Prescribed by: DELORIS ESQUEDA on 01/22/23 1410 Aspirin (Aspirin EC) 81 Mg Tablet.dr, 81 MG PO DAILY Prescribed by: DELORIS ESQUEDA on 01/22/23 1410 Calcium Carbonate (Calcium) 600 Mg Tablet, 600 MG PO BID, (Reported) Entered as Reported by: CONCETTA HERNANDEZ on 04/04/18 0831 Cholecalciferol (Vitamin D3) (Vitamin D3) 25 Mcg (1000 Unit) Capsule, 25 MCG PO 1200, (Reported) Entered as Reported by: RHIANNA MOTAT on 02/22/22 152 Diltiazem HCl (Diltiazem 24Hr ER) 180 Mg Cap.er.24h, 180 MG PO DAILY, (Reported) Entered as Reported by: RHIANNA MOTTA on 02/22/22 152 Famotidine (Famotidine) 20 Mg Tablet, 20 MG PO BID, (Reported) Entered as Reported by: RHIANNA MOTTA on 02/22/22 152 Ferrous Sulfate (Iron) 325 Mg (65 Mg Iron) Tablet, 325 MG PO MOWE,FR, (Reported) Entered as Reported by: RHIANNA MOTTA on 02/22/22 152 Folic Acid (Folic Acid) 1 Mg Tablet, 1 MG PO 1200, (Reported) Entered as Reported by: RHIANNA MOTTA on 02/22/22 152 Losartan Potassium (Losartan Potassium) 50 Mg Tablet, 50 MG PO HS, (Reported) Entered as Reported by: RHIANNA MOTTA on 02/22/22 1527 [place] 3 Polyunsat Fatty Acids (Fish Oil 1,000 mg Capsule) 1,000 Mg Cap, 1,000 MG PO BID, (Reported) Entered as Reported by: CONCETTA HERNANDEZ on 04/04/18 0831 Omeprazole (Omeprazole) 40 Mg Capsule.dr, 40 MG PO DAILY PRN for HEARTBURN, (Reported) Entered as Reported by: RHIANNA MOTTA on 02/22/22 1527 Pravastatin Sodium (Pravastatin Sodium) 20 Mg Tablet, 20 MG PO HS, (Reported) Entered as Reported by: CONCETTA HERNANDEZ on 04/04/18 0831 Rivaroxaban (Xarelto Tablet) 15 Mg Tablet, 15 MG PO DAILY@1700 Prescribed by: DELORIS ESQUEDA on 01/22/23 1410 Discontinued Medications Rivaroxaban (Xarelto) 20 Mg Tablet, 20 MG PO DAILY, (Reported) Entered as Reported by: RHIANNA MOTTA on 02/22/22 1527 Past Ivtxzgg-Bmveus-Imlgdh Hx Patient Social History Marrital Status: single Employed/Student: retired Smoking Status: Never a Smoker 2nd Hand Smoke Exposure: No Recent Hopitalizations: No Alcohol Use?: No Immunizations Up To Date Date of Pneumonia Vaccine: November 05, 2007 Seasonal Allergies Seasonal Allergies: Yes Surgeries Yes (COLONOSCOPY; D&C) Appendectomy, Tonsillectomy Respiratory No Currently Using CPAP: No Currently Using BIPAP: No Cardiovascular Yes Atrial Fibrillation, High Cholesterol, Hypertension Neurological Yes (TREMOR) Reproductive System Hx Reproductive Disorders: No Sexually Transmitted Disease: No HIV/AIDS: No ORTHODONTIST History: Menopausal Genitourinary No Gastrointestinal No Musculoskeletal No Endocrine History of Endocrine Disorders: No HEENT History of HEENT Disorders: No Loss of Vision: Denies Hearing Impairment: Denies Cancer No Psychosocial History of Psychiatric Problem: No Integumentary History of Skin or Integumenta: No Blood Transfusions History of Blood Disorders: No Family Medical History Significant Family History: Heart Disease, Hypertension Other Significan Family Hx: ADDITIONAL PMH: Stress test done 02/22/22 showing no ischemia or infarct. 2D Echo done January showed normal LV, EF 55-65%, mild MR, PA 35-40mmHg. Family Hx: Colon cancer Review of Systems Constitutional: see HPI EENTM: no symptoms reported Respiratory: no symptoms reported Cardiovascular: chest pain Physical Exam Vital Signs Vital Signs - First Documented 01/22/23 03:00 Temp 35.8 Pulse 78 Resp 18 B/P (MAP) 164/76 (105) Pulse Ox 99 O2 Delivery Nasal Cannula O2 Flow Rate 2.00 Capillary Refill : Less Than 3 Seconds Height, Weight, BMI Height: 5'3.50" Weight: 143lbs. 0.0oz. [id number]; 24.00 BMI Method:Estimated General Appearance: No Apparent Distress, WD/WN, Chronically ill Eyes: Bilateral Eye Normal Inspection, Bilateral Eye PERRL, Bilateral Eye EOMI HEENT: PERRL/EOMI, Normal ENT Inspection, Pharynx Normal Neck: Full Range of Motion, Normal Inspection, Non Tender, Supple, Carotid Bruit Respiratory: Chest Non Tender, Lungs Clear, Normal Breath Sounds, No Accessory Muscle Use, No Respiratory Distress Cardiovascular: Regular Rate, Rhythm, No Edema, No Gallop, No JVD, No Murmur, Normal Peripheral Pulses Gastrointestinal: Normal Bowel Sounds, No Organomegaly, No Pulsatile Mass, Non Tender, Soft Back: Normal Inspection, No CVA Tenderness, No Vertebral Tenderness Extremity: Normal Capillary Refill, Normal Inspection, Normal Range of Motion, Non Tender, No Calf Tenderness, No Pedal Edema Neurologic/Psychiatric: Alert, Oriented x3, No Motor/Sensory Deficits, Normal Mood/Affect Skin: Normal Color, Warm/Dry Lymphatic: No Adenopathy Clinical Quality Measures AMI/AHF: ASA po Prior to arrival: No Short Stay Diagnosis Discharge Diagnosis-Short Stay Admission Diagnosis: chest pain Final Discharge Diagnosis: Chest pain without evidence of acute coronary syndrome Paroxysmal atrial fibrillation Hypertension Hyperlipidemia Conclusion Labs Laboratory Tests 01/22/23 03:06: White Blood Count 7.9, Red Blood Count 5.02, Hemoglobin 14.9, Hematocrit 44, Mean Corpuscular Volume 88, Mean Corpuscular Hemoglobin 30, Mean Corpuscular Hem oglobin Concent 34, Red Cell Distribution Width 13.0, Platelet Count 227, Mean Platelet Volume 9.8, Immature Granulocyte % (Auto) 1, Neutrophils (%) (Auto) 61, Lymphocytes (%) (Auto) 25, Monocytes (%) (Auto) 9, Eosinophils (%) (Auto) 5, Basophils (%) (Auto) 0, Neutrophils # (Auto) 4.8, Lymphocytes # (Auto) 2.0, Monocytes # (Auto) 0.7, Eosinophils # (Auto) 0.4H, Basophils # (Auto) 0.0, Immature Granulocyte # (Auto) 0.0, Prothrombin Time 26.6H, INR Comment 2.5H, Activated Partial Thromboplast Time 43H, D-Dimer 0.42, Sodium Level 142, Potassium Level 4.0, Chloride Level 107, Carbon Dioxide Level 23, Anion Gap 12, Blood Urea Nitrogen 19H, Creatinine 1.44H, Estimat Glomerular Filtration Rate 36, BUN/Creatinine Ratio 13, Glucose Level 140H, Calcium Level 10.2H, Corrected Calcium 10.1, Magnesium Level 2.2, Total Bilirubin 0.4, Aspartate Amino Transf ( AST/SGOT) 30, Alanine Aminotransferase (ALT/SGPT) 36, Alkaline Phosphatase 101, Total Creatine Kinase 61, Creatine Kinase MB 1.1, Myoglobin 30.7, Troponin I < 0.028, B-Type Natriuretic Peptide 40.8, Total Protein 7.6, Albumin 4.1, Amylase Level 57, Lipase 30 01/22/23 06:54: Troponin I < 0.028 Conclusion/Plan Discharge home DELORIS ESQUEDA DO Jan 22, 2023 08:15
[2023-01-22] MEDS ORDERED: SENNOSIDES 8.6 MG (SENOKOT) TAB PO SCH (09:00)
[2023-01-22] MEDS ORDERED: DOCUSATE SODIUM 100 MG CAPSULE PO SCH (09:00)
--- NOTE | 2023-01-22 09:03 | Consultation-Cardiology ---
HPI-Cardiology Cardiology Consultation: Date of Consultation 01/22/23 Time Seen by a Provider: 08:45 Date of Admission 01-22-23 Attending Physician Destiny Tobias MD Admitting Physician Admitting Physician: Deloris Casiano DO Attending Physician: Deloris Casiano DO Consulting Physician BRETT HODGES HPI: Chief Complaint: Chest pain Ms. Shah is an 82 year old female admitted to [facility] from the ED with c/o CP which woke her up from sleep last night. She is reporting discomfort was sharp, stabbing through to her back in the epigastric region. She states she took Gas- X x 2 which did not provide any relief. She reports the pain was constant for 2 hours so she called a friend who brought her to the ED. She denies any SOB, palpitations, diaphoresis. The discomfort did not change with activity or rest. She reports her pain is gone after receiving Morphine in the ED. She reports she had one episode of nausea with "dry heaves" in the ED which she thinks may have been after she received the morphine, but she is not certain. Review of Systems-Cardiology Review of Systems Constitutional: No chills, No fever, No malaise Eyes: No vision change Ears/Nose/Throat: No epistaxis, No recent hearing loss Respiratory: As described under HPI Cardiovascular: As described under HPI Gastrointestinal: As described under HPI Genitourinary: No dysuria, No hematuria Musculoskeletal: no symptoms reported Skin: No rash on exposed areas, No ulcerations on exposed areas Psychiatric/Neurological: No anxiety, No depression, No seizure, No focal weakness, No syncope Hematologic: No bleeding abnormalities ESB-Mvjxcd-Lketda Hx Patient Social History 2nd Hand Smoke Exposure: No Alcohol Use?: No Immunizations Up To Date Date of Pneumonia Vaccine: November 05, 2007 Past Medical History PMH As described under Assessment. Family Medical History Family Medical History: No reported family h/o CAD. Family History: Colon cancer Allergies and Home Medications Allergies Coded Allergies: NKANo Known Allergies (Verified Allergy, Unknown, 10/16/05) Patient Home Medication List Amiodarone HCl (Amiodarone HCl) 200 Mg Tablet, 200 MG PO UD Prescribed by: ANGELA ALANIZ on 02/23/22 0615 Calcium Carbonate (Calcium) 600 Mg Tablet, 600 MG PO BID, (Reported) Entered as Reported by: CONCETTA HERNANDEZ on 04/04/18830 Cholecalciferol (Vitamin D3) (Vitamin D3) 25 Mcg (1000 Unit) Capsule, 25 MCG PO 1200, (Reported) Entered as Reported by: RHIANNA MOTTA on 02/22/221526 Diltiazem HCl (Diltiazem 24Hr ER) 180 Mg Cap.er.24h, 180 MG PO DAILY, (Reported) Entered as Reported by: RHIANNA MOTTA on 02/22/221526 Famotidine (Famotidine) 20 Mg Tablet, 20 MG PO BID, (Reported) Entered as Reported by: RHIANNA MOTTA on 02/22/221526 Ferrous Sulfate (Iron) 325 Mg (65 Mg Iron) Tablet, 325 MG PO MO,WE,FR, (Reported) Entered as Reported by: RHIANNA MOTTA on 02/22/221526 Folic Acid (Folic Acid) 1 Mg Tablet, 1 MG PO 1200, (Reported) Entered as Reported by: RHIANNA MOTTA on 02/22/221526 Losartan Potassium (Losartan Potassium) 50 Mg Tablet, 50 MG PO HS, (Reported) Entered as Reported by: RHIANNA MOTTA on 02/22/221526 [place] 3 Polyunsat Fatty Acids (Fish Oil 1,000 mg Capsule) 1,000 Mg Cap, 1,000 MG PO BID, (Reported) Entered as Reported by: CONCETTA HERNANDEZ on 04/04/18830 Omeprazole (Omeprazole) 40 Mg Capsule.dr, 40 MG PO DAILY PRN for HEARTBURN, (Reported) Entered as Reported by: RHIANNA MOTTA on 02/22/221526 Pravastatin Sodium (Pravastatin Sodium) 20 Mg Tablet, 20 MG PO HS, (Reported) Entered as Reported by: CONCETTA HERNANDEZ on 04/04/18830 Rivaroxaban (Xarelto) 20 Mg Tablet, 20 MG PO DAILY, (Reported) Entered as Reported by: RHIANNA MOTTA on 02/22/221526 Physical Exam-Cardiology Physical Exam Vital Signs/I&O 01/22/23 01/22/23 01/22/23 03:00 03:10 07:45 Temp 35.8 Pulse 78 70 Resp 18 19 B/P (MAP) 164/76 (105) 114/61 Pulse Ox 99 99 96 O2 Delivery Nasal Cannula Nasal Cannula Nasal Cannula O2 Flow Rate 2.00 2.00 2.00 Capillary Refill : Less Than 3 Seconds Constitutional: AAO x 3, well-developed, well-nourished HEENT: PERRL, hearing is well preserved, oral hygience is good Neck: No carotid bruit; carotid pulses are 2 + bilaterally Respiratory: No accessory muscle use, No respiratory distress; chest expansion is symmetric, chest is bilaterally symmetric, lungs clear to auscultation Cardiovascular: regular rate-rhythm; No JVD; S1 and S2 Gastrointestinal: No tender; soft, round, audible bowel sounds Extremities: no lower extremity edema bilateral Neurologic/Psychiatric: other (moves all extremities) Skin: No rash on exposed areas, No ulcerations on exposed areas Data Review Labs Laboratory Tests 01/22/23 03:06: White Blood Count 7.9, Red Blood Count 5.02, Hemoglobin 14.9, Hematocrit 44, Mean Corpuscular Volume 88, Mean Corpuscular Hemoglobin 30, Mean Corpuscular Hemoglobin Concent 34, Red Cell Distribution Width 13.0, Platelet Count 227, Mean Platelet Volume 9.8, Immature Granulocyte % (Auto) 1, Neutrophils (%) (Auto) 61, Lymphocytes (%) (Auto) 25, Monocytes (%) (Auto) 9, Eosinophils (%) (Auto) 5, Basophils (%) (Auto) 0, Neutrophils # (Auto) 4.8, Lymphocytes # (Auto) 2.0, Monocytes # (Auto) 0.7, Eosinophils # (Auto) 0.4H, Basophils # (Auto) 0.0, Immature Granulocyte # (Auto) 0.0, Prothrombin Time 26.6H, INR Comment 2.5H, Activated Partial Thromboplast Time 43H, D-Dimer 0.42, Sodium Level 142, Potassium Level 4.0, Chloride Level 107, Carbon Dioxide Level 23, Anion Gap 12, Blood Urea Nitrogen 19H, Creatinine 1.44H, Estimat Glomerular Filtration Rate 36, BUN/Creatinine Ratio 13, Glucose Level 140H, Calcium Level 10.2H, Corrected Calcium 10.1, Magnesium Level 2.2, Total Bilirubin 0.4, Aspartate Amino Transf (AST/SGOT) 30, Alanine Aminotransferase (ALT/SGPT) 36, Alkaline Phosphatase 101, Total Creatine Kinase 61, Creatine Kinase MB 1.1, Myoglobin 30.7, Troponin I < 0 .028, B-Type Natriuretic Peptide 40.8, Total Protein 7.6, Albumin 4.1, Amylase Level 57, Lipase 30 01/22/23 06:54: Troponin I < 0.028, Triglycerides Level 64, Cholesterol Level 224H, LDL Cholesterol Direct 166H, VLDL Cholesterol 13, HDL Cholesterol 53 Laboratory Tests 01/22/23 03:06 Radiology NAME: ADITYA SHAH [facility] REC#: [id number] PT STATUS: ADM Víctor : 1940 PHYSICIAN: LORRI CHEN DO ADMIT DATE: 01/22/23/CSD Draft Date of Exam:01/22/23 CHEST 1 VIEW, AP/PA ONLY EXAM: CHEST 1 VIEW, AP/PA ONLY INDICATION: Chest pain. COMPARISON: 02/18/2022. FINDINGS: Normal heart size and central pulmonary vascularity. No focal pulmonary opacity. No pleural effusion or pneumothorax. No acute osseous findings. IMPRESSION: No acute cardiopulmonary findings. Agree with ED preliminary interpretation. Dictated on workstation # [id number] Dict: 01/22/23 0752 Trans: 01/22/23 0754 CVB [id number] Interpreted by: LUCILLE SARABIA MD Electronically signed by: NAME: ADITYA SHAH [facility] REC#: [id number] PT STATUS: REG ER : 1940 PHYSICIAN: LORRI CHEN DO ADMIT DATE: 01/22/23/ER Signed Date of Exam:01/22/23 CT ANGIO CHEST W(R/O TAD) TECHNIQUE: CTA of the chest was performed with contrast bolus timing optimized for evaluation of the pulmonary arteries. 3-D reformats were obtained and reviewed. Dose reduction techniques were utilized. REASON FOR EXAM: Chest pain. Shortness of breath. COMPARISON: Chest radiograph performed earlier the same day. FINDINGS: This helical CT pulmonary angiogram is diagnostic to the subsegmental level branches of the pulmonary artery and demonstrates no pulmonary emboli. The heart and great vessels are unremarkable. There is no pericardial effusion. There is no axillary, mediastinal, or hilar adenopathy. Nodule seen in the right lobe of the thyroid measuring 1.5 cm. Dependent opacities are seen in the lungs. No focal consolidation or mass. No central endobronchial obstructing lesion. No pleural effusion or pneumothorax. Osseous structures appear normal. Limited views of the upper abdomen are unremarkable. Nonspecific hypoattenuating focus is seen in the right hepatic lobe. IMPRESSION: 1. No acute pulmonary embolus. 2. Dependent opacities, favored to represent atelectasis. 3. Nodule in the right lobe of the thyroid measuring 1.5 cm. Consider thyroid ultrasound to further evaluate. Agree with overnight report. Dictated by: Dictated on workstation # [id number] Dict: 01/22/23725 Trans: 01/22/2336 CVB [id number] Interpreted by: EDUARDA LEVY DO Electronically signed by: EDUARDA LEVY DO 01/22/2336 ECG Impression ECG Initial ECG Rhythm: Normal Sinus A/P-Cardiology Assessment/Admission Diagnosis Chest pain - undetermined etiology - no evidence of ACS - Lexiscan stress test done in February [address] Alaniz showing breast attenuation with no significant ischemia or infarction on SPECT images stress score 4, SDS 2, ejection fraction 66% - 2D echo was done on February 07, [address] Alaniz showing normal LV size LVEF 55 to 65%, probably 2 diastolic dysfunction, mild mitral regurgitation, PA 35 to 40 mmHg Sick sinus syndrome/paroxysmal atrial fibrillation - Patient is maintained on Xarelto, Cardizem CD 120mg daily, - Intolerant to amiodarone due to elevated liver enzymes. Hypertension Acute renal insufficiency - management per medical services Hyperlipidemia - intolerant to statins at this time d/t liver enzyme elevation Elevated liver enzymes recently - suspected secondary to amiodarone and pravastatin, both medications were discontinued - AST/ALT WNL on lab this morning Mild bilateral nonobstructive carotid artery stenosis, last ultrasound was done in July [address] Alaniz Benign essential tremor, continue to monitor at this time. Reports intolerance to propranolol with dizziness. Discussion and Recomendations Chest pain of undetermined etiology - no evidence of ACS thus far H/O PAF - maintaining SR - continue home medications including CCB and Xarelto Acute renal insufficiency - management per medical services Monitor lab closely Further recs will be based on her hospital course We would like to thank medical services for this consult Clinical Quality Measures AMI/AHF: ASA po Prior to arrival: BRETT Guevara Jan 22, 2023 09:03
[2023-01-22] MEDS ORDERED: PANTOPRAZOLE 40 MG (PROTONIX) TAB PO NR (10:00)
[2023-01-22 11:59] VITALS: BP 118/54
[2023-01-22] MEDS ORDERED: AMIO200T65 PO (14:10)
[2023-01-22] MEDS ORDERED: RIVA15TA2 PO (14:10)
[2023-01-22] MEDS ORDERED: ASPI-1238 PO (14:10)
[2023-01-22] MEDS ORDERED: RIVAROXABAN 15 MG TABLET (XARELTO) PO SCH (17:00)
--- NOTE | 2023-01-22 19:29 | Consultation-Cardiology ---
HPI-Cardiology Cardiology Consultation: Date of Consultation 01/22/23 Time Seen by a Provider: 09:20 Date of Admission Attending Physician Destiny Tobias MD Admitting Physician Admitting Physician: Deloris Esqueda DO Attending Physician: Deloris Esqueda DO Consulting Physician TEX SUMMERS MD, MA, FACP, FACC, FSCAI, CCDS Physician requesting consult: Dr Esqueda HPI: Chief Complaint: Chest pain Ms. Madrigal is an 82 year old female admitted to [facility] from the ED with c/o CP which woke her up from sleep last night. She is reporting discomfort was sharp, stabbing through to her back in the epigastric region. She states she took Gas- X x 2 which did not provide any relief. She reports the pain was constant for 2 hours so she called a friend who brought her to the ED. She denies any SOB, palpitations, diaphoresis. The discomfort did not change with activity or rest. She reports her pain is gone after receiving Morphine in the ED. She reports she had one episode of nausea with "dry heaves" in the ED which she thinks may have been after she received the morphine, but she is not certain. Review of Systems-Cardiology Review of Systems Constitutional: No chills, No fever, No malaise Eyes: No vision change Ears/Nose/Throat: No epistaxis, No recent hearing loss Respiratory: As described under HPI Cardiovascular: As described under HPI Gastrointestinal: As described under HPI Genitourinary: No dysuria, No hematuria Musculoskeletal: no symptoms reported Skin: No rash on exposed areas, No ulcerations on exposed areas Psychiatric/Neurological: No anxiety, No depression, No seizure, No focal weakness, No syncope Hematologic: No bleeding abnormalities RIX-Ysrfrs-Wufoat Hx Patient Social History 2nd Hand Smoke Exposure: No Alcohol Use?: No Pt feels they are or have been: No Immunizations Up To Date Date of Pneumonia Vaccine: November 05, 2007 Past Medical History PMH As described under Assessment. Family Medical History Family Medical History: No reported family h/o CAD. Family History: Colon cancer Allergies and Home Medications Allergies Coded Allergies: NKANo Known Allergies (Verified Allergy, Unknown, 10/16/05) Patient Home Medication List Home Medication List Reviewed: Yes Amiodarone HCl (Amiodarone HCl) 200 Mg Tablet, 200 MG PO DAILY Prescribed by: DELORIS ESQUEDA on 01/22/23 1410 Aspirin (Aspirin EC) 81 Mg Tablet.dr, 81 MG PO DAILY Prescribed by: DELORIS ESQUEDA on 01/22/23 1410 Calcium Carbonate (Calcium) 600 Mg Tablet, 600 MG PO BID, (Reported) Entered as Reported by: CONCETTA HERNANDEZ on 04/04/18 08 Cholecalciferol (Vitamin D3) (Vitamin D3) 25 Mcg (1000 Unit) Capsule, 25 MCG PO 1200, (Reported) Entered as Reported by: RHIANNA MOTTA on 02/22/22 152 Diltiazem HCl (Diltiazem 24Hr ER) 180 Mg Cap.er.24h, 180 MG PO DAILY, (Reported) Entered as Reported by: RHIANNA MOTTA on 02/22/22 152 Famotidine (Famotidine) 20 Mg Tablet, 20 MG PO BID, (Reported) Entered as Reported by: RHIANNA MOTTA on 02/22/22 152 Ferrous Sulfate (Iron) 325 Mg (65 Mg Iron) Tablet, 325 MG PO MO,WE,FR, (Reported) Entered as Reported by: RHIANNA MOTTA on 02/22/22 152 Folic Acid (Folic Acid) 1 Mg Tablet, 1 MG PO 1200, (Reported) Entered as Reported by: RHIANNA MOTTA on 02/22/22 152 Losartan Potassium (Losartan Potassium) 50 Mg Tablet, 50 MG PO HS, (Reported) Entered as Reported by: RHIANNA MOTTA on 02/22/221526 [place] 3 Polyunsat Fatty Acids (Fish Oil 1,000 mg Capsule) 1,000 Mg Cap, 1,000 MG PO BID, (Reported) Entered as Reported by: CONCETTA HERNANDEZ on 04/04/18830 Omeprazole (Omeprazole) 40 Mg Capsule.dr, 40 MG PO DAILY PRN for HEARTBURN, (Reported) Entered as Reported by: RHIANNA MOTTA on 02/22/22 152 Pravastatin Sodium (Pravastatin Sodium) 20 Mg Tablet, 20 MG PO HS, (Reported) Entered as Reported by: CONCETTA HERNANDEZ on 04/04/18 08 Rivaroxaban (Xarelto Tablet) 15 Mg Tablet, 15 MG PO DAILY@1700 Prescribed by: DELORIS ESQUEDA on 01/22/23 1410 Discontinued Medications Rivaroxaban (Xarelto) 20 Mg Tablet, 20 MG PO DAILY, (Reported) Entered as Reported by: RHIANNA MOTTA on 02/22/22 8649 Physical Exam-Cardiology Physical Exam Vital Signs/I&O 01/22/23 01/22/23 01/22/23 01/22/23 07:45 08:00 08:00 11:25 Pulse 70 65 64 Resp 19 18 B/P (MAP) 114/61 135/70 (91) Pulse Ox 96 96 99 O2 Delivery Nasal Cannula Nasal Cannula Nasal Cannula O2 Flow Rate 2.00 1.00 1.00 01/22/23 01/22/23 01/22/23 11:59 13:00 14:45 Temp 36.1 Pulse 61 71 Resp 19 B/P (MAP) 118/54 (75) Pulse Ox 97 O2 Delivery Room Air Capillary Refill : Less Than 3 Seconds Constitutional: AAO x 3, well-developed, well-nourished HEENT: PERRL, hearing is well preserved, oral hygience is good Neck: No carotid bruit; carotid pulses are 2 + bilaterally Respiratory: No accessory muscle use, No respiratory distress; chest expansion is symmetric, chest is bilaterally symmetric, lungs clear to auscultation Cardiovascular: regular rate-rhythm; No JVD; S1 and S2 Gastrointestinal: No tender; soft, round, audible bowel sounds Extremities: no lower extremity edema bilateral Neurologic/Psychiatric: other (moves all extremities) Skin: No rash on exposed areas, No ulcerations on exposed areas Data Review Labs Laboratory Tests 01/22/23 03:06: White Blood Count 7.9, Red Blood Count 5.02, Hemoglobin 14.9, Hematocrit 44, Mean Corpuscular Volume 88, Mean Corpuscular Hemoglobin 30, Mean Corpuscular Hemoglobin Concent 34, Red Cell Distribution Width 13.0, Platelet Count 227, Mean Platelet Volume 9.8, Immature Granulocyte % (Auto) 1, Neutrophils (%) (Auto) 61, Lymphocytes (%) (Auto) 25, Monocytes (%) (Auto) 9, Eosinophils (%) (Auto) 5, Basophils (%) (Auto) 0, Neutrophils # (Auto) 4.8, Lymphocytes # (Auto) 2.0, Monocytes # (Auto) 0.7, Eosinophils # (Auto) 0.4H, Basophils # (Auto) 0.0, Immature Granulocyte # (Auto) 0.0, Prothrombin Time 26.6H, INR Comment 2.5H, Activated Partial Thromboplast Time 43H, D-Dimer 0.42, Sodium Level 142, Potassium Level 4.0, Chloride Level 107, Carbon Dioxide Level 23, Anion Gap 12, Blood Urea Nitrogen 19H, Creatinine 1.44H, Estimat Glomerular Filtration Rate 36, BUN/Creatinine Ratio 13, Glucose Level 140H, Calcium Level 10.2H, Corrected Calcium 10.1, Magnesium Level 2.2, Total Bilirubin 0.4, Aspartate Amino Transf (AST/SGOT) 30, Alanine Aminotransferase (ALT/SGPT) 36, Alkaline Phosphatase 101, Total Creatine Kinase 61, Creatine Kinase MB 1.1, Myoglobin 30.7, Troponin I < 0.028, B-Type Natriuretic Peptide 40.8, Total Protein 7.6, Albumin 4.1, Amylase Level 57, Lipase 30 01/22/23 06:54: Troponin I < 0.028, Triglycerides Level 64, Cholesterol Level 224H, LDL Cholesterol Direct 166H, VLDL Cholesterol 13, HDL Cholesterol 53, Thyroid Stimulating Hormone (TSH) 1.24 01/22/23 13:09: Troponin I < 0.028 A/P-Cardiology Assessment/Admission Diagnosis Chest pain - undetermined etiology - no evidence of ACS - Lexiscan stress test done in February [address] Alaniz showing breast attenuation with no significant ischemia or infarction on SPECT images stress score 4, SDS 2, ejection fraction 66% - 2D echo was done on February 07, [address] Alaniz showing normal LV size LVEF 55 to 65%, probably 2 diastolic dysfunction, mild mitral regurgitation, PA 35 to 40 mmHg Sick sinus syndrome/paroxysmal atrial fibrillation - Patient is maintained on Xarelto, Cardizem CD 120mg daily, - Intolerant to amiodarone due to elevated liver enzymes. Hypertension Acute renal insufficiency - management per medical services Hyperlipidemia - intolerant to statins at this time d/t liver enzyme elevation Elevated liver enzymes recently - suspected secondary to amiodarone and pravastatin, both medications were discontinued - AST/ALT WNL on lab this morning Mild bilateral nonobstructive carotid artery stenosis, last ultrasound was done in July [address] Alaniz Benign essential tremor, continue to monitor at this time. Reports intolerance to propranolol with dizziness. Discussion and Recomendations Chest pain of undetermined etiology - no evidence of ACS thus far H/O PAF - maintaining SR - continue home medications including CCB and Xarelto Acute renal insufficiency - management per medical services Monitor lab closely Ok to d/c if serial card enzymes negative for myocardial injury, and f/u with Dr Alaniz next week Clinical Quality Measures AMI/AHF: ASA po Prior to arrival: TEX Bruce MD FACP [facility] CCDS Jan 22, 2023 19:29
[2023-01-23] MEDS ORDERED: PANTOPRAZOLE 40 MG (PROTONIX) TAB PO SCH (09:00)
[2023-01-23] MEDS ORDERED: ASPIRIN enteric coated 81MG TABLET PO SCH (09:00)
== END 2023-01-22 14:45 | disposition home or self-care (01) ==
LOC: EDUNIT# 02:56 → ER 02:58 → CSD 07:43
PROVIDERS: ADMIT Internal Medicine; ATTEND Internal Medicine
DX: R07.89 Other chest pain (principal); I48.0 Paroxysmal atrial fibrillation; I10 Essential (primary) hypertension; I65.23 Occlusion and stenosis of bilateral carotid arteries; E78.5 Hyperlipidemia, unspecified; N28.9 Disorder of kidney and ureter, unspecified; G25.0 Essential tremor; R74.01 Elevation of levels of liver transaminase levels; Z79.899 Other long term (current) drug therapy
CPT/HCPCS: 36415; 71045; 71275; 80053; 80061; 82150; 82550; 82553; 83690; 83735; 83874; 83880; 84443; 84484; 85025; 85379; 85610; 85730; 93005; 93041

== ENCOUNTER → 2023-02-15 | Outpatient (CLI) | payer MEDICARE, OTHER ==
[~2023-02-15] MED LIST changes: +ASPI-1238 PO; +RIVA15TA2 PO
--- NOTE | 2023-02-15 16:06 | Diagnostic Imaging Report ---
PROCEDURE: US Thyroid. TECHNIQUE: Multiple real-time grayscale images were obtained of the thyroid in various projections. INDICATION: Thyroid nodule COMPARISON: None. FINDINGS: Right thyroid lobe measures 4.8 x 2.4 x 1.9 cm. The left thyroid lobe measures 4.7 x 1.5 x 1.3 cm. The isthmus measures 0.5 cm. Multiple bilateral thyroid nodules, largest in the right thyroid lobe measuring 1.5 x 1.9 x 0.8 cm additionally there is a solid nodule in the right thyroid lobe measuring 0.7 x 0.7 x 0.5 cm. In the left thyroid lobe the largest nodule measures 0.8 x 0.4 x 0.6 cm and has a heterogenous echotexture. The thyroid parenchyma is normal. IMPRESSION: Probably benign thyroid nodules. Recommend follow-up thyroid ultrasound in 12 months. Dictated by: Dictated on workstation # [id number]
== END ==
LOC: RAD 12:45
PROVIDERS: ATTEND Physician Assistant
DX: E04.1 Nontoxic single thyroid nodule (principal)
CPT/HCPCS: 76536